=== PATIENT | female | born 1960 | race Caucasian/White ===

== ENCOUNTER 2021-11-08 19:11 | Emergency (ER) | payer OTHER, SELFPAY ==
--- NOTE | 2021-11-08 19:11 | USR_ITS ---
PROCEDURE INFORMATION: Exam: US Duplex Left Lower Extremity Veins, Limited Exam date and time: 11/08/2021 7:48 PM Age: 61 years old Clinical indication: Pain; Leg, lower; Left TECHNIQUE: Imaging protocol: Real-time Duplex ultrasound of the Left Lower Extremity with 2-D kendall scale, color Doppler flow and spectral waveform analysis with image documentation. Limited exam focused on the left lower extremity veins. COMPARISON: CT abdomen pelvis w con* [id number] 05/09/2019 1:38 PM FINDINGS: Left deep veins: Unremarkable. The common femoral, femoral, proximal profunda femoral and popliteal veins are patent without thrombus. Normal Doppler waveforms. Normal compressibility and/or augmentation response. Left superficial veins: Unremarkable. Saphenofemoral junction is patent without thrombus. Soft tissues: Unremarkable. US/CV venous duplex [facility] [id number] IMPRESSION: No evidence of deep vein thrombosis.
[2021-11-08 20:14] VITALS: BP 175/61; PULSE 50; RESP 18; TEMP 36.7; O2SAT 95; BMI 53.1
--- NOTE | 2021-11-08 20:27 | XRR_ITS ---
PROCEDURE INFORMATION: Exam: XR Left Knee Exam date and time: 11/08/2021 8:39 PM Age: 61 years old Clinical indication: Pain; Knee; Left TECHNIQUE: Imaging protocol: XR Left knee. Views: 3 views. COMPARISON: [place] [id number] 11/08/2021 7:48 PM FINDINGS: Bones/joints: Severe tricompartmental osteoarthritis of the knee. Soft tissues: Normal. XR/XR knee LT 3V* [id number] IMPRESSION: Severe tricompartmental osteoarthritis of the knee.
--- NOTE | 2021-11-08 20:32 | W.ED.EXTPRO ---
HPI - Extremity Problem General: Chief complaint: Extremity Problem,Nontraumatic Stated complaint: possible blood clot LT leg Time Seen by Provider: 11/08/21 19:12 Source: patient Mode of arrival: ambulatory Limitations: no limitations History of Present Illness: 61-year-old female states that she been having some lower leg pain today and knee pain. She does get arthritis in her knees she states she had called her PCP and her PCP was concerned about a blood clot and wondered to have an ultrasound appear sick to since she has been her pain is actually improved and she is currently pain-free states mainly when she walks. Associated symptoms: Deny chest pain, fever(s) or rash Review of Systems Const: Denies: fever(s), chills, body aches or change in appetite Eyes: Denies: blurry vision or eye discomfort ENMT: Denies: throat pain or dental pain Card: Denies: chest pain Resp: Denies: dyspnea GI: Denies: abdominal pain, nausea, vomiting or diarrhea : Denies: dysuria Musc: Reports: extremity pain; Denies: neck pain or back pain Skin/Breast: Denies: rash Neuro: Denies: headache(s) Psych: Denies: depression Abelardo/Lymph: Denies: easy bruising All/Imm: Denies: urticaria PFSH ED PFSH: Family History (Updated 01/15/20 @ 11:58 by Constanza Valle RN) Mother Cancer Other CAD (coronary artery disease) Social History (Updated 01/15/20 @ 11:59 by Constanza Valle RN) Smoking and tobacco status: never smoked Household members: spouse Marital status: Physical Exam Const: COMMON NORMALS: no acute distress, patient oriented x3 and healthy appearing HENMT: COMMON NORMALS: normocephalic and atraumatic HEAD & SCALP: normocephalic and atraumatic Eye: COMMON NORMALS: Equal, round and reactive pupils present and EOMs intact bilaterally PUPIL: Yes Equal, round and reactive pupils present Neck/C-Spine: COMMON NORMALS: full ROM and supple Chest: COMMONS NORMALS: normal inspection of the chest and normal palpation of entire chest wall Resp: COMMON NORMALS: normal respiratory effort, No retractions, No use of accessory muscles and clear to auscultation bilaterally AUSCULTATION: clear to auscultation bilaterally Cardio: COMMON NORMALS: regular rate, regular rhythm and No murmurs present (Cardio) RATE: regular rate RHYTHM: regular rhythm GI: COMMON NORMALS: Normal to inspection, nondistended, normoactive bowel sounds present, Soft to palpation, non-tender and no masses PALPATION: Yes Soft to palpation Extremity: NARRATIVE EXTREMITY EXAM: No calf tenderness at this time no swelling or warmth to the knee full range of motion without pain Neuro: COMMON NORMALS: patient oriented x3, moves all extremities and no focal motor deficits Psych: COMMON NORMALS: mental status grossly normal, Normal thought process present and cooperative THOUGHT PROCESS: Normal thought process present Skin: COMMON NORMALS: no rashes or lesions noted and no wounds GENERAL SKIN EXAM: no rashes or lesions noted Course Vital Signs: Vital signs: Vital Signs Temperature 98.0 F 11/08/21 20:14 Pulse Rate 50 L 11/08/21 20:14 Respiratory Rate 18 11/08/21 20:14 Blood Pressure 175/61 11/08/21 20:14 Pulse Oximetry 95 11/08/21 20:14 MDM - Extremity (Nontraumatic) Medical Decision Making Patient presents here with knee pain likely from arthritis x-ray normal ultrasound shows no DVT her pain is much improved she is stable for discharge follow-up with PCP and return if worsening Lab Data Radiology Impressions Venous Duplex 11/08/21 19:11 IMPRESSION: No evidence of deep vein thrombosis. Discharge Plan Discharge Patient Disposition: Home Clinical Impression: Knee pain, left Condition: Stable Prescriptions: New Naprosyn 500 mg tablet 500 mg PO BID PRN (Reason: pain) Qty: 20 0RF No Action levothyroxine [Synthroid] 175 mcg tablet 175 mcg PO DAILY 0RF amlodipine 10 mg tablet 5 mg PO DAILY 0RF tramadol 50 mg tablet 50 mg PO Q6H PRN0RF cyclobenzaprine 10 mg tablet 10 mg PO TID PRN0RF famotidine 20 mg tablet 20 mg PO BID 0RF Discharge Orders: Discharge ED (Routine); Ordered 11/08/21 Ordered By: Addison Arugeta Referrals: Maria Elena Winslow APN [Primary Care Provider] - 1-3 days Discharge Diet: Advance as tolerated Discharge Activity: Resume usual activity Patient Instructions: Knee Pain (ED) Coding Level of Care Code ED Tavern Keeper for Chg Fwd Exam Comprehensive
[2021-11-08 20:52] VITALS: BP 113/85; PULSE 119; RESP 14; O2SAT 95
== END 2021-11-08 20:56 | disposition home or self-care (01) ==
PROVIDERS: Emergency Provider Emergency Medicine; PCP Nurse Practitioner Family
DX: M25.562 Pain in left knee (principal)
CPT/HCPCS: 73562; 93971; 99282

== ENCOUNTER 2022-02-05 09:55 | Emergency (ER) | payer OTHER, SELFPAY ==
[2022-02-05 10:40] VITALS: PULSE 96; RESP 20; TEMP 36.6; O2SAT 93; BMI 53.1
--- NOTE | 2022-02-05 12:10 | CT_ITS ---
WS: [id number] CT ABDOMEN PELVIS TECHNIQUE: Noncontrast CT of the abdomen and pelvis with coronal and sagittal reformatted images. CLINICAL INFORMATION: abd pain LLQ COMPARISON: CT 10 DLP: 1714.[address] scans at [facility] use at least one of these dose optimization techniques: automated e xposure control; mA and/or kV adjustment per patient size (includes targeted exams where dose is matc hed to clinical indication); or iterative reconstruction. FINDINGS: 4 mm proximal obstructing LEFT proximal ureteral calculus with mild LEFT ureterectasis and pelvocalie ctasis. Minimal induration about the LEFT kidney. RIGHT ureter is decompressed. Bilateral nonobstruct ing calyceal tip calculi bilaterally. Normal noncontrast liver. Hepatomegaly. Cholecystectomy clips. Small postoperative fluid attenuation collection in the gallbladder fossa. Postoperative changes at the GE junction with gastric sleeve and moderate hiatal hernia unchanged. Noncontrast spleen is normal. Fatty atrophy of the pancreas. Sigmoid diverticulosis. No evidence of acute diverticulitis. No evidence of high-grade small or large bowel obstruction. Tiny fat-containing umbilical hernia. Moderate spondylitic changes lumbar spine. Disc space narrowing L5-S1. CT/CT abdomen pelvis wo con [id number] IMPRESSION: 1. Obstructing 4 mm LEFT proximal ureteral calculus. Mild LEFT pelvocaliectasi s and ureterectasis. Slight induration about the LEFT kidney. 2. Prior gastric sleeve with moderate esophageal hiatal hernia similar to prev ious. 3. Interval cholecystectomy with small postoperative fluid collection in the g allbladder fossa likely postoperative seroma or less likely biloma measuring 1. 8 cm. This can be followed up with ultrasound gallbladder on an elective basis. 4. No other significant changes. Notified Colleen Wagoner MD at 02/05/2022 1:20 PM.
--- NOTE | 2022-02-05 12:12 | W.ED.GENADLT ---
HPI - General Adult General: Chief complaint: Abdominal Pain Stated complaint: Pain in left side Time Seen by Provider: 02/05/22 11:49 History of Present Illness: Patient is a 61-year-old female with a history of hypertension, hypothyroidism, previous gastric sleeve surgery who presents the emergency room with complaints of left lower quadrant Jimbo pain x3 days. Patient pain started on Saturday morning when patient was outside. Patient denies any trauma or injury. Since then, patient has had intermittent colicky pain that is only improved with pain medication. Patient has hydrocodone lying around at home and reportedly took some to relieve the pain. Patient has multiple episodes of emesis in the last 3 days. Patient reports loose stool but also says that she is on stool softener. Patient denies any urinary complaints, hematuria, melena or hematochezia. Patient denies any decreased p.o. intake, fever/chills with mild cough, runny nose sore throat. Patient denies any prior history of kidney stones or prior abdominal surgeries other than gastric sleeve procedure. Onset:3 days ago Duration:3 days Location:home Severity:moderate Associated symptoms: Reports nausea and vomiting; Deny chest pain, dyspnea, rash or palpitations Review of Systems Const: Denies: fever(s) or chills Eyes: Denies: change in vision ENMT: Denies: mouth pain Card: Denies: chest pain or palpitations Resp: Denies: dyspnea or non-productive cough GI: Reports: abdominal pain (+LLQ abd pain), nausea, vomiting and diarrhea (+loose stools) : Denies: dysuria Musc: Denies: extremity pain Skin/Breast: Denies: rash or new lesions Neuro: Denies: weakness in extremities Psych: Reports: other (Normal mood) Abelardo/Lymph: Denies: easy bruising PFSH ED PFSH: Medical History (Updated 02/05/22 @ 13:21 by Colleen Wagoner MD) History of cardioversion Hypertension Hypothyroidism Obesity Surgical History (Updated 02/05/22 @ 12:15 by Colleen Wagoner MD) S/P cholecystectomy S/P gastric bypass S/P hysterectomy Family History Mother Cancer Other CAD (coronary artery disease) Social History Smoking and tobacco status: never smoked Household members: spouse Marital status: Physical Exam Const: COMMON NORMALS: alert HENMT: COMMON NORMALS: atraumatic HEAD & SCALP: atraumatic MOUTH: moist mucous membranes not abnormal Eye: COMMON NORMALS: EOMs intact bilaterally and conjunctivae normal CONJUNCTIVA: Yes conjunctivae normal Neck/C-Spine: COMMON NORMALS: full ROM and supple Resp: COMMON NORMALS: normal respiratory effort and clear to auscultation bilaterally AUSCULTATION: clear to auscultation bilaterally Cardio: COMMON NORMALS: regular rate RATE: regular rate GI: COMMON NORMALS: Soft to palpation PALPATION: Yes Soft to palpation OTHER: +moderate LLQ TTP. NO guarding rebound, guarding, rigidity. No CVA tenderness to percussion. Neg Ulloa/Neg McBurney's point tenderness, no suprabupic tenderness to palpation. Extremity: COMMON NORMALS: full ROM Neuro: SENSORIUM/ORIENTATION: Yes alert MOTOR EXAM: No Abnormal motor strength present and Other motor observations present (no focal motor deficits) Psych: COMMON NORMALS: speech normal SPEECH: Yes normal speech MOOD & AFFECT: Yes euthymic mood Course Vital Signs: Vital signs: Vital Signs Temperature 97.9 F 02/05/22 10:40 Pulse Rate 96 02/05/22 10:40 Respiratory Rate 20 H 02/05/22 10:40 Pulse Oximetry 93 02/05/22 10:40 [facility] - General Adult Medical Decision Making 61-year-old female with history of hypertension, hypothyroidism, previous gastric sleeve procedure presenting to the emergency room with complaints of left lower quadrant Jimbo pain for the last 3 days with associated nausea and vomiting. On exam, patient is hemodynamically stable without any guarding or rebound tenderness. Patient has moderate LLQ tenderness palpation. CT abd pelvis showed 4 mm left obstructive stone. Patient has a normal creatinine value. Patient received 2 L of fluid, Toradol, morphine with improvement in pain. UA showed 1+ bacteria. Given the fact the patient is afebrile without a leukocytosis, no signs of fat stranding on CT scan, do not suspect patient has acute infected stone. However will cover patient apparently with antibiotics. Patient received Keflex 500 mg today in the ER. Patient is able to tolerate p.o. and is in no acute distress on reassessment. Rx cephalexin BID for UTI, tylenol PRN pain Disposition: Discharge. Patient counseled regarding diagnostic impression, treatment plan. Patient given ED strict return precautions to return for continuation, worsening, or development of new symptoms. Instructed to f/u w/ PCP regarding symptoms today. Patient verbalized understanding. Lab Data : 02/05/22 12:07 02/05/22 13:14 Radiology Impressions Abdomen/Pelvis CT 02/05/22 12:10 IMPRESSION: 1. Obstructing 4 mm LEFT proximal ureteral calculus. Mild LEFT pelvocaliectasis and ureterectasis. Slight induration about the LEFT kidney. 2. Prior gastric sleeve with moderate esophageal hiatal hernia similar to previous. 3. Interval cholecystectomy with small postoperative fluid collection in the gallbladder fossa likely postoperative seroma or less likely biloma measuring 1.8 cm. This can be followed up with ultrasound gallbladder on an elective basis. 4. No other significant changes. Notified Colleen Wagoner MD at 02/05/2022 1:20 PM. Laboratory Results WBC 9.0 10^3/uL (4.0-10.0) 02/05/22 12:07 RBC 5.60 10^6/uL (4.1-5.3) H 02/05/22 12:07 Hgb 14.4 g/dL (11.5-15.3) 02/05/22 12:07 Hct 47.2 % (37.0-47.0) H 02/05/22 12:07 MCV 84.3 fl (81-99) 02/05/22 12:07 MCH 25.7 pg (28.0-34.0) L 02/05/22 12:07 MCHC 30.5 g/dL (30.0-36.0) 02/05/22 12:07 RDW 14.3 % (12.1-15.1) 02/05/22 12:07 Plt Count 227 10^3/cmm (130-400) 02/05/22 12:07 MPV 11.4 fL (7.4-10.4) H 02/05/22 12:07 Neut % (Auto) 80.8 % 02/05/22 12:07 Lymph % (Auto) 12.7 % 02/05/22 12:07 Alfalfa % (Auto) 5.6 % 02/05/22 12:07 Eos % (Auto) 0.2 % 02/05/22 12:07 Baso % (Auto) 0.4 % 02/05/22 12:07 Neut # (Auto) 7.24 10^3/uL (1.8-7.7) 02/05/22 12:07 Lymph # (Auto) 1.1 10^3/uL (0.8-4.8) 02/05/22 12:07 Alfalfa # (Auto) 0.5 10^3/uL (0.2-0.9) 02/05/22 12:07 Eos # (Auto) 0.0 10^3/uL (0.0-0.8) 02/05/22 12:07 Baso # (Auto) 0.0 10^3/uL (0.0-0.1) 02/05/22 12:07 Nucleated RBC % (auto) 0 % 02/05/22 12:07 Nucleated RBCs # 0.0 /100WBC 02/05/22 12:07 Sodium Cancelled 02/05/22 12:07 Potassium Cancelled 02/05/22 12:07 Chloride Cancelled 02/05/22 12:07 Carbon Dioxide Cancelled 02/05/22 12:07 Anion Gap Cancelled 02/05/22 12:07 BUN Cancelled 02/05/22 12:07 Creatinine Cancelled 02/05/22 12:07 GFR Calculation Cancelled 02/05/22 12:07 Glucose Cancelled 02/05/22 12:07 Calculated Osmolality Cancelled 02/05/22 12:07 Calcium Cancelled 02/05/22 12:07 Total Bilirubin Cancelled 02/05/22 12:07 AST Cancelled 02/05/22 12:07 ALT Cancelled 02/05/22 12:07 Alkaline Phosphatase Cancelled 02/05/22 12:07 Total Protein Cancelled 02/05/22 12:07 Albumin Cancelled 02/05/22 12:07 Globulin Cancelled 02/05/22 12:07 Lipase Cancelled 02/05/22 12:07 Urine Color Yellow (Yellow) 02/05/22 11:52 Urine Appearance Clear (CLEAR) 02/05/22 11:52 Urine pH 5 (5-7) 02/05/22 11:52 Ur Specific Dalton 1.030 (1.005-1.030) 02/05/22 11:52 Urine Protein Neg (Negative) 02/05/22 11:52 Urine Glucose (UA) Norm (Normal) 02/05/22 11:52 Urine Ketones Negative (Negative) 02/05/22 11:52 Urine Blood Neg (Negative) 02/05/22 11:52 Urine Nitrate Negative (Negative) 02/05/22 11:52 Urine Bilirubin Neg (Negative) 02/05/22 11:52 Urine Urobilinogen Norm mg/dL (Negative) 02/05/22 11:52 Ur Leukocyte Esterase Trace (Negative) H 02/05/22 11:52 Urine RBC 0-4 /hpf (0-2) H 02/05/22 11:52 Urine WBC 5-10 /hpf (0-5) H 02/05/22 11:52 Ur Squamous Epith Cells 0-4 /hpf (0-5) H 02/05/22 11:52 Calcium Oxalate Crystal 40-55 /hpf H 02/05/22 11:52 Amorphous Sediment Not Reportable 02/05/22 11:52 Urine Bacteria 1+ /hpf (NONE) H 02/05/22 11:52 Imaging Data Other Imaging: Radiologist's impression: [place] [address] CT Scan Report Signed Patient: Lauren Boyd Unit #: [id number] : 1960 Age/Sex: 61 / F ADM Date: 02/05/22 Loc: ER Room/Bed: Attending Dr: Ordering Provider/Ordering MD: Colleen Wagoner MD Date of Service: 02/05/22 Procedure(s): CT abdomen pelvis [facility] [address] Accession Number(s): [id number] Report Number: [id number] WS: [id number] CT ABDOMEN PELVIS TECHNIQUE: Noncontrast CT of the abdomen and pelvis with coronal and sagittal reformatted images. CLINICAL INFORMATION: abd pain LLQ COMPARISON: CT DLP: 1714.[address] scans at [facility] use at least one of these dose optimization techniques: automated exposure control; mA and/or kV adjustment per patient size (includes targeted exams where dose is matched to clinical indication); or iterative reconstruction. FINDINGS: 4 mm proximal obstructing LEFT proximal ureteral calculus with mild LEFT ureterectasis and pelvocaliectasis. Minimal induration about the LEFT kidney. RIGHT ureter is decompressed. Bilateral nonobstructing calyceal tip calculi bilaterally. Normal noncontrast liver. Hepatomegaly. Cholecystectomy clips. Small postoperative fluid attenuation collection in the gallbladder fossa. Postoperative changes at the GE junction with gastric sleeve and moderate hiatal hernia unchanged. Noncontrast spleen is normal. Fatty atrophy of the pancreas. Sigmoid diverticulosis. No evidence of acute diverticulitis. No evidence of high-grade small or large bowel obstruction. Tiny fat-containing umbilical hernia. Moderate spondylitic changes lumbar spine. Disc space narrowing L5-S1. CT/CT abdomen pelvis wo con [id number] IMPRESSION: ? 1.? Obstructing 4 mm LEFT proximal ureteral calculus. Mild LEFT pelvocaliectasis and ureterectasis. Slight induration about the LEFT kidney. 2.? Prior gastric sleeve with moderate esophageal hiatal hernia similar to previous. 3.? Interval cholecystectomy with small postoperative fluid collection in the gallbladder fossa likely postoperative seroma or less likely biloma measuring 1.8 cm. This can be followed up with ultrasound gallbladder on an elective basis. 4.? No other significant changes. ? Notified Colleen Wagoner MD at 02/05/2022 1:20 PM. ? ? Dictated By: Ruperto Blakely MD Signed By: Ruperto Blakely MD Signed Date/Time: 02/05/22 1323 DD/ 1301 Discharge Plan Discharge Patient Disposition: Home Clinical Impression: Abdominal pain, Nausea & vomiting, Renal colic Condition: Stable Prescriptions: New acetaminophen 500 mg tablet 500 mg PO Q6H PRN (Reason: pain) 5 Days Qty: 20 0RF cephalexin 500 mg capsule 500 mg PO BID 7 Days Qty: 14 0RF No Action Aspir-81 81 mg Tablet,Delayed Release (Dr/Ec) 81 mg PO DAILY 0RF Discharge Orders: Discharge ED (Routine); Ordered 02/05/22 Ordered By: Colleen Wagoner Referrals: Maria Elena Winslow APN [Primary Care Provider] - Discharge Diet: Advance as tolerated Discharge Activity: Increase activity as tolerated Patient Instructions: Renal Colic (ED), Abdominal Pain (ED) Activity Restrictions/Additional Instructions: Please come back if you have any worsening abdominal pain, fever or chills, nausea or vomiting, diarrhea, blood in the stool, inability hold down liquid or solids, or any new concerning complaints. Coding Level of Care Code ED Wool Sampler for Chg Fwd Exam Comprehensive
[2022-02-05 12:20] LABS: Basophils % 0.4 %; Eosinophils % 0.2 %; Hematocrit 47.2 % (37.0-47.0); Hemoglobin 14.4 g/dL (11.5-15.3); Lymphocytes # 1.1 10^3/uL (0.8-4.8); Lymphocytes % 12.7 %; Mean Corpuscular HGB Conc 30.5 g/dL (30.0-36.0); Mean Corpuscular Hemoglobin 25.7 pg (28.0-34.0); Mean Corpuscular Volume 84.3 fl (81-99); Mean Platelet Volume 11.4 fL (7.4-10.4); Monocytes # 0.5 10^3/uL (0.2-0.9); Monocytes % 5.6 %; Neutrophils # 7.24 10^3/uL (1.8-7.7); Neutrophils % 80.8 %; Nucleated Red Blood Cells % 0 %; Platelet Count 227 10^3/cmm (130-400); Red Cell Distribution Width 14.3 % (12.1-15.1)
[2022-02-05 12:24] LABS: Add Urine Microscopic? YES; Bacteria Urine 1+ /hpf; Bilirubin Urine Neg (Negative); Blood Urine Neg (Negative); Calcium Oxalate Crystals Urine 40-55 /hpf; Glucose Urine UA Norm (Normal); Ketones Urine Negative (Negative); Leukocyte Esterase Urine Trace (Negative); Nitrate Urine Negative (Negative); Protein Urine Neg (Negative); RBC Urine 0-4 /hpf (0-2); Squamous Epithelial Cell Urine 0-4 /hpf (0-5); Urine Appearance Clear (CLEAR); Urine Color Yellow (Yellow); Urobilinogen Urine Norm (Negative); pH Urine 5 (5-7)
[2022-02-05 12:25] LABS: Add Urine Culture? Yes
[2022-02-05] MEDS: morphine 4 mg/mL SDV 1 mL 2 MG IVP (13:14)
[2022-02-05] MEDS: sodium chloride 0.9% 1,000 ML 999 ML IV ×2 (13:15→14:00)
[2022-02-05] MEDS: cephALEXin 500 mg Capsule PO (13:46)
[2022-02-05] MEDS: ketorolac 30 mg/mL INJ IVP (13:46)
[2022-02-05 13:47] LABS: Alanine Aminotransferase 13 U/L (0-33); Albumin Level 4.4 g/dL (3.5-5.2); Alkaline Phosphatase 94 IU/L (35-105); Anion Gap 15.2 (5-19); Aspartate Amino Transferase 17 U/L (0-32); Blood Urea Nitrogen 20 mg/dL (8-23); Calcium 9.7 mg/dL (8.5-10.5); Carbon Dioxide 25 mmol/L (22-29); Chloride 104 mmol/L (98-107); Glomerular Filtration Rate 41.5 mL/min (90-130); Glucose 111 mg/dL (65-115); Lipase 21 U/L (13-60); Osmolality Calculated 293 mOsm/kg (285-295); Potassium 4.2 mmol/L (3.5-5.1); Sodium 140 mmol/L (136-145); Total Bilirubin 0.3 mg/dL (0.15-1.2); Total Protein 7.4 g/dL (6.6-8.7)
[2022-02-05 14:16] VITALS: BP 167/96; PULSE 81; O2SAT 96
== END 2022-02-05 14:17 | disposition home or self-care (01) ==
PROVIDERS: Family Medicine; Emergency Provider Emergency Medicine; PCP Nurse Practitioner Family
DX: N23 Unspecified renal colic (principal); R10.9 Unspecified abdominal pain; R11.2 Nausea with vomiting, unspecified; Z79.82 Long term (current) use of aspirin
CPT/HCPCS: 36415; 74176; 80053; 81001; 83690; 85025; 87086; 96374; 96375; 99285; J1885; J2270; J7030

== ENCOUNTER 2023-03-08 10:54 | Outpatient (CLI) | payer OTHER, SELFPAY ==
--- NOTE | 2023-03-08 11:21 | XR_ITS ---
WS: [id number] Right knee, AP and lateral views, 03/08/2023 Clinical Data: BILATERAL KNEE PAIN Comparison: None. Findings: No fractures or dislocations are seen. There is narrowing of the medial joint space with sclerosis of the adjacent tibial plateau articular surface. There is spurring of the tibial spines. There is a sp ur of the lateral femoral condyle. The patella shows anterior and posterior spurring.. The patella is intact. The soft tissues are unremarkable. Impression: Moderate osteoarthritis of the right knee. Kellgren-Antwan Classification: grade 3 (moderate): moderate multiple osteophytes, definite narrowi ng of joint space and some sclerosis and possible deformity of bone ends
--- NOTE | 2023-03-08 11:21 | XR_ITS ---
WS: [id number] Left hip, 2 views, AP pelvis, 03/08/2023 Clinical Data: LEFT HIP PAIN Comparison: None. Findings: No fractures or dislocations are seen. The left hip shows no erosion, sclerosis, narrowing, cyst form ation or fragmentation of the left femoral head. The soft tissues are not remarkable. The adjacent pe lvis is normal. The right hip shows a small acetabular spur. 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 Tonnis classification: grade 1: sclerosis of femoral head and acetabulum or slight joint space narrow ing or slight lipping at joint margins
--- NOTE | 2023-03-08 11:21 | XR_ITS ---
WS: [id number] Right foot, 2 views, 03/08/2023 Clinical Data: BILATERAL FEET PAIN Comparison: None. Findings: No fractures or dislocations are seen. No bone destruction or erosion is noted. There is a bunion of the head of the right first metatarsal. There is a plantar spur. The soft tissues are normal. There i s an orthopedic plate with screws reducing an old distal right fibular fracture. Impression: Bunion at the head of the right first metatarsal.
--- NOTE | 2023-03-08 11:21 | XR_ITS ---
WS: [id number] Left knee, AP and lateral views, 03/08/2023 Clinical Data: BILATERAL KNEE PAIN Comparison: Left knee, 11/08/2021 Findings: No fractures or dislocations are seen. There is medial joint compartment narrowing. There is spurring of the medial and lateral tibial plateau. There is irregularity of the articular surfaces of the med ial and lateral femoral condyles. The left patella shows posterior and anterior spurring. The soft ti ssues are normal. Impression: Severe osteoarthritis of the left knee. Kellgren-Antwan Classification: grade 4 (severe): large osteophytes, marked narrowing of joint spac e, severe sclerosis and definite deformity of bone ends
--- NOTE | 2023-03-08 11:21 | XR_ITS ---
WS: [email or web address] Left foot, 2 views, 03/08/2023 Clinical Data: BILATERAL FEET PAIN Comparison: None. Findings: No fractures or dislocations are seen. No bone destruction or erosion is noted. There is a bunion at the head of the left first metatarsal. There is a plantar spur and an Achilles spur. The soft tissues are normal. Impression: Bunion at the head of the left first metatarsal.
== END 2023-03-08 10:55 | disposition home or self-care (01) ==
PROVIDERS: PCP Nurse Practitioner Family; Visit Provider Nurse Practitioner Family
DX: M79.671 Pain in right foot (principal); M79.672 Pain in left foot; M17.0 Bilateral primary osteoarthritis of knee; M16.12 Unilateral primary osteoarthritis, left hip; M25.752 Osteophyte, left hip; M21.612 Bunion of left foot; M21.611 Bunion of right foot
CPT/HCPCS: 73502; 73560; 73620

== ENCOUNTER 2023-04-26 09:23 | Outpatient (RCR) | payer OTHER, SELFPAY | END 2023-05-21 23:59 | disposition home or self-care (01) | LOC: SPT 09:23 | PROVIDERS: PCP Nurse Practitioner Family; Visit Provider Student in an Organized Health Care Education/Training Program | DX: M70.62 Trochanteric bursitis, left hip (principal) | CPT/HCPCS: 97110; 97161 ==

== ENCOUNTER → 2023-04-30 09:08 | Outpatient (BNVA) | payer OTHER, SELFPAY | PROVIDERS: PCP Nurse Practitioner Family; Referring Provider Student in an Organized Health Care Education/Training Program; Visit Provider Physician Assistant | DX: M51.36 Other intervertebral disc degeneration, lumbar region (principal) | CPT/HCPCS: 72110 ==

== ENCOUNTER → 2023-05-02 10:22 | Outpatient (BNVA) | payer OTHER, SELFPAY | PROVIDERS: PCP Nurse Practitioner Family; Visit Provider Physician Assistant | DX: M17.0 Bilateral primary osteoarthritis of knee | CPT/HCPCS: 73560; 73565 ==

== ENCOUNTER 2023-06-04 11:44 | Emergency (ER) | payer OTHER, SELFPAY ==
[2023-06-04] VITALS (40 sets, daily range): BP systolic 138–170; BP diastolic 94–127; PULSE 96–113; RESP 14–47; TEMP 36.8; O2SAT 89–99; BMI 56.7
[2023-06-04 13:27] LABS: Basophils % 0.1 %; Eosinophils % 0.2 %; Hematocrit 50.9 % (36-47); Lymphocytes # 1.7 10^3/uL (0.8-4.8); Lymphocytes % 18.2 %; Mean Corpuscular HGB Conc 30.8 g/dL (30-55); Mean Corpuscular Hemoglobin 25.6 pg (27-33); Mean Corpuscular Volume 82.9 fl (85-98); Mean Platelet Volume 10.6 fL (7.4-10.4); Monocytes # 0.5 10^3/uL (0.2-0.9); Monocytes % 5.9 %; Neutrophils # 6.83 10^3/uL (1.8-7.7); Neutrophils % 74.7 %; Nucleated Red Blood Cells # 0.1 /100WBC; Nucleated Red Blood Cells % 0.9 %; Platelet Count 141 10^3/cmm (157-399); Red Blood Count 6.14 10^6/uL (3.85-5.65); Red Cell Distribution Width 18.2 % (12.1-15.1); White Blood Count 9.14 10^3/uL (3.29-11.43)
--- NOTE | 2023-06-04 13:39 | XR_ITS ---
WS: [id number] Exam: XR chest 1V portable [id number] Date/Time of Exam: 06/04/2023 1:40 PM Reason For Exam: SOB post COVID Comparison 06/09/2019. Lungs are clear and fully expanded. Unremarkable cardiomediastinal silhouette for technique. Bony str uctures are intact. No pleural effusions. Degenerative change and mild levoscoliosis of the lower T-s pine. IMPRESSION: 1. No acute cardiopulmonary process.
--- NOTE | 2023-06-04 13:39 | ECG_ITS ---
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 Measurements Intervals [place] Rate: 111 P: 51 PA: 255 QRS: -76 QRSD: 114 T: 134 QT: 385 QTc: 525 Interpretive Statements SINUS TACHYCARDIA WITH FIRST DEGREE AV BLOCK POSSIBLE RIGHT ATRIAL ENLARGEMENT [0.25mV P-WAVE] S1-S2-S3 PATTERN, CONSISTENT WITH PULMONARY DISEASE, RVH, OR NORMAL VARIANT INCOMPLETE RIGHT BUNDLE BRANCH BLOCK [90+ ms QRS DURATION, TERMINAL R IN V1/V2, 40+ ms S IN I/aVL/V4/V5/V6] LEFT ANTERIOR FASCICULAR BLOCK [QRS AXIS <= -45, QR IN I, RS IN II] ANTERIOR MYOCARDIAL INFARCTION , PROBABLY RECENT [40+ ms Q WAVE AND/OR ST/T ABNORMALITY IN V3/V4] ST ELEVATION, CONSIDER INFERIOR INJURY [MARKED ST ELEVATION W/O NORMALLY INFLECTED T-WAVE IN II/aVF] ACUTE IL Compared to ECG 06/10/2019 06:13:58First degree AV block now present Right ventricular hypertrophy now present.Incomplete right bundle-branch block now present.Left anterior fascicular block now present Electronically Signed On 06-04-2023 23:19:24 MILLER HEAD ASSISTANT WET PROCESS by Marshall Perez M.D. [email or web address]
--- NOTE | 2023-06-04 13:40 | ED_ITS ---
Documented by User: SERENITY Mcgovern 06/04/23 16:51 HPI - SOB/Dyspnea General: Chief Complaint: Shortness of Breath/Dyspnea Stated Complaint: BC sent for poss. heart issues Time Seen by Provider: 06/04/23 13:28 Source: patient and family Mode of arrival: ambulatory Limitations: no limitations History of Present Illness: HPI Narrative: Patient is a nice 62-year-old female who presents to ED today along with her significant other for evaluation of dyspnea. Patient states over the past several days she has been having significant shortness of breath even with very minimal exertion which is very uncharacteristic for her. She states she was see n at [facility] prior to the emergency department and they did a portable x- ray and told her there was widening of her aorta and they were concerned for a possible aneurysm and/or dissection. Patient is not having any chest pain. She tells me around Halloween she was exposed to another individual with COVID. She later developed a headache and a mild cough and so did a home rapid antigen test which was positive. She states her symptoms during COVID seemed to be fairly mild and she seemed to recover well until the last few days when she developed significant shortness of breath. She has no known cardiac or pulmonary history. She does take furosemide for lower extremity edema without a history of CHF. MD elicited complaint: shortness of breath Pertinent past history: other (recent COVID infection) Onset (ago): day(s) Context: recent illness (COVID) Timing: constant Severity: severe Exacerbating factors: lying flat and exertion Relieving factors: rest Associated symptoms: Reports orthopnea; Deny abdominal pain, chest congestion, chest pain, extremity pain, fever(s), hemoptysis, lightheadedness, nausea, palpitations, syncope or vomiting Treatment prior to arrival: none Related Data: Home oxygen amount: none Review of Systems Const: Denies: fever(s), chills, body aches, fatigue or malaise ENMT: Denies: throat pain, odynophagia, ear or mastoid pain, nasal discharge or nasal congestion Card: Reports: swelling of feet/ankles, dyspnea on exertion and orthopnea; Denies: chest pain, palpitations, irregular heart rhythm, edema, lightheadedness, syncope, pre-syncope, leg pain with exertion or acrocyanosis Resp: Reports: dyspnea; Denies: productive cough, non-productive cough, wheezing, hemoptysis or chest congestion GI: Denies: abdominal pain, nausea, vomiting or diarrhea : Denies: flank pain or dysuria Musc: Denies: neck pain, back pain, extremity pain or joint pain Skin/Breast: Denies: rash Neuro: Denies: headache(s), numbness in extremities, weakness in extremities or sensory changes PFSH ED PFSH: Medical History History of cardioversion Hypertension Hypothyroidism Obesity Surgical History S/P cholecystectomy S/P gastric bypass S/P hysterectomy Family History Mother Cancer Other CAD (coronary artery disease) Social History Smoking and tobacco/nicotine status: never used tobacco/nicotine Alcohol intake: never Household members: spouse Marital status: Physical Exam Const: COMMON NORMALS: patient oriented x3, no limitations, alert and well nourished GENERAL APPEARANCE: cooperative NUTRITIONAL APPEARANCE: obese morbidly obese (BMI of 56) ORIENTATION/CONSCIOUSNESS: Yes awake, Yes oriented to person, Yes oriented to place and Yes oriented to time HENMT: COMMON NORMALS: normocephalic and atraumatic HEAD & SCALP: normal to inspection, normocephalic and atraumatic Neck/C-Spine: COMMON NORMALS: no JVD Chest: COMMONS NORMALS: normal inspection of the chest Resp: COMMON NORMALS: normal respiratory effort and clear to auscultation bilaterally EFFORT & INSPECTION: Yes tachypneic AUSCULTATION: clear to auscultation bilaterally Cardio: COMMON NORMALS: no JVD and regular rhythm RATE: tachycardic RHYTHM: regular rhythm Back/Pelvis: COMMON NORMALS: thoracic and lumbar spine normal to inspection Extremity: COMMON NORMALS: normal to inspection, capillary refill normal and no calf tenderness GENERAL: Yes normal exam except as noted Neuro: NELLA COMA SCALE: document GCS findings Nella coma scale eye opening: Spontaneous [place] coma scale verbal response: Orientated Nella coma scale motor response: Obey commands [place] coma scale total score: 15 COMMON NORMALS: patient oriented x3, moves all extremities, no focal motor deficits and no sensory deficits noted SENSORIUM/ORIENTATION: Yes alert, Yes oriented to person, Yes oriented to place and Yes oriented to time Skin: COMMON NORMALS: no rashes or lesions noted GENERAL SKIN EXAM: no rashes or lesions noted Course ED course: CXR from [facility] obtained-significant rotation noted. No obvious findings that I would be concerned for an anuerysm/dissection. Based on history/physical exam patient is going to be a PE until proven otherwise. Vital Signs: Vital signs: Vital Signs Temperature 98.3 F 06/04/23 11:58 Pulse Rate 112 H 06/04/23 16:50 Respiratory Rate 30 H 06/04/23 16:50 Blood Pressure 168/107 06/04/23 16:55 Pulse Oximetry 98 06/04/23 16:50 Oxygen Delivery Me thod Room Air 06/04/23 15:30 MDM - SOB/Dyspnea Medical Decision Making Patient is a 62-year-old female here sent from [facility] for concerns of an abnormal CXR. After speaking to patient she is approximately 2 weeks status post COVID infection with complaints of profound dyspnea with minimal exertion. On arrival she is tachycardic and tachypneic. Blood work with a D-dimer greater than 20. She has got elevations to her troponin and BNP. Acute kidney injury. CTA ordered despite kidney labs as I highly suspect PE with significant clot load. CTA is positive for extensive bilateral PEs with saddle embolus with poor flow to bilateral pulmonary arteries. Report below: IMPRESSION: 1.? Extensive bilateral pulmonary embolus including saddle embolus with poor flow to the pulmonary arteries bilaterally. Extensive segmental and subsegmental embolus. 2.? Evidence of RIGHT heart strain. Reflux into the hepatic veins. 3.? Shallow inspiration. Small amount of hazy infiltrate along the LEFT upper lobe fissure. 4.? Shallow inspiration 5.? Cardiomegaly. Mixing artifact in the RIGHT atrium. This can be further evaluated with echocardiogram to exclude thrombus 6.? Postoperative change at the GE junction with moderate esophageal hiatal hernia. She was promptly started on heparin and we will transfer out for evaluation for thrombectomy and/or catheter related tpa. Dr. Davis aware of patient and agrees with care here and need for transfer. Feng will not fly due to weight/girth. Medical Records I reviewed the patient's medical records. Lab Data 06/04/23 13:10 06/04/23 13:10 Labs/Radiology: Laboratory Results WBC 9.14 10^3/uL (3.29-11.43) 06/04/23 13:10 RBC 6.14 10^6/uL (3.85-5.65) H 06/04/23 13:10 Hgb 15.70 g/dL (11.27-16.99) 06/04/23 13:10 Hct 50.9 % (36-47) H 06/04/23 13:10 MCV 82.9 fl (85-98) L 06/04/23 13:10 MCH 25.6 pg (27-33) L 06/04/23 13:10 MCHC 30.8 g/dL (30-55) 06/04/23 13:10 RDW 18.2 % (12.1-15.1) H 06/04/23 13:10 Plt Count 141 10^3/cmm (157-399) L 06/04/23 13:10 MPV 10.6 fL (7.4-10.4) H 06/04/23 13:10 Neut % (Auto) 74.7 % 06/04/23 13:10 Lymph % (Auto) 18.2 % 06/04/23 13:10 Traverse % (Auto) 5.9 % 06/04/23 13:10 Eos % (Auto) 0.2 % 06/04/23 13:10 Baso % (Auto) 0.1 % 06/04/23 13:10 Neut # (Auto) 6.83 10^3/uL (1.8-7.7) 06/04/23 13:10 Lymph # (Auto) 1.7 10^3/uL (0.8-4.8) 06/04/23 13:10 Traverse # (Auto) 0.5 10^3/uL (0.2-0.9) 06/04/23 13:10 Eos # (Auto) 0.0 10^3/uL (0.0-0.8) 06/04/23 13:10 Baso # (Auto) 0.0 10^3/uL (0.0-0.1) 06/04/23 13:10 Nucleated RBC % (auto) 0.9 % 06/04/23 13:10 Nucleated RBCs # 0.1 /100WBC 06/04/23 13:10 D-Dimer >= 20.00 ug/mLFEU (0-0.59) H 06/04/23 13:10 Sodium 141 mmol/L (136-145) 06/04/23 13:10 Potassium 3.8 mmol/L (3.5-5.1) 06/04/23 13:10 Chloride 103 mmol/L (98-107) 06/04/23 13:10 Carbon Dioxide 24 mmol/L (22-29) 06/04/23 13:10 Anion Gap 17.8 (5-19) 06/04/23 13:10 BUN 26 mg/dL (8-23) H 06/04/23 13:10 Creatinine 1.8 mg/dL (0.5-0.9) H 06/04/23 13:10 GFR Calculation 28.4 mL/min (90-130) L 06/04/23 13:10 Glucose 120 mg/dL (65-115) H 06/04/23 13:10 Calculated Osmolality 298 mOsm/kg (285-295) H 06/04/23 13:10 Calcium 10.1 mg/dL (8.5-10.5) 06/04/23 13:10 Total Bilirubin 0.8 mg/dL (0.15-1.2) 06/04/23 13:10 AST 19 U/L (0-32) 06/04/23 13:10 ALT 54 U/L (0-33) H 06/04/23 13:10 Alkaline Phosphatase 124 U/L (35-105) H 06/04/23 13:10 Troponin T Baseline 59 ng/L (0-10) H 06/04/23 13:10 Troponin T 120 Minute 52.19 ng/L (0-10) H 06/04/23 15:10 Delta Troponin T -6.81 ABS# (0-10) L 06/04/23 15:10 NT-Pro-B Natriuret Pep 04899 pg/mL (0-125) H 06/04/23 13:10 Total Protein 6.8 g/dL (6.6-8.7) 06/04/23 13:10 Albumin 4.1 g/dL (3.5-5.2) 06/04/23 13:10 Globulin 2.7 g/dL (1.3-4.6) 06/04/23 13:10 All radiology interpretation(s) finalized by discharge Discharge Plan Discharge Patient Disposition: Transfer to ED Clinical Impression: Acute cor pulmonale due to saddle embolus of pulmonary artery, Acute kidney injury Condition: Stable Prescriptions: No Action potassium chloride [Klor-Con 10] 10 mEq tablet extended release 10 meq PO DAILY PRN (Reason: when taking lasix) tramadol 50 mg tablet 50 mg PO Q4H PRN (Reason: Pain) cyclobenzaprine 10 mg tablet 10 mg PO TID PRN (Reason: Muscle Spasm) azithromycin 250 mg tablet See Rx Instructions .ROUTE .COMPLEX Rx Instructions: TAKE 2 TABLETS BY MOUTH ON DAY 1, AND THEN TAKE 1 TABLET BY MOUTH ONCE A DAY ON DAY 2 THROUGH DAY 5 (rx filled 5d/s pt finished 06/01/23) alprazolam 0.5 mg tablet 0.25 mg PO BID PRN (Reason: Anxiety) levothyroxine 125 mcg tablet 125 mcg PO DAILY@03 metoprolol tartrate 50 mg tablet 50 mg PO BID gabapentin 300 mg capsule 300 mg PO BID Rx Instructions: not started as of 06/04/23 allopurinol 300 mg tablet 300 mg PO DAILY furosemide 20 mg tablet 20 mg PO DAILY PRN (Reason: Edema) methylprednisolone 4 mg tablets,dose pack See Rx Instructions .ROUTE .COMPLEX Rx Instructions: TAKE BY MOUTH DIRECTED ON INSIDE OF PACKAGE (rx filled 05/28/23 6d/s finished 06/02/23) albuterol sulfate 90 mcg/actuation HFA aerosol inhaler 2 puff INHALATION QID PRN (Reason: Shortness Of Breath) potassium citrate 99 mg Capsule 99 mg PO DAILY PRN (Reason: gout) Referrals: Mario Hemphill DO [Primary Care Provider] - Coding Level of Care Code ED Geographic Information System Surveyor for Chg Fwd Documented by User: Santos Davis DO 06/05/23 05:58 HPI - SOB/Dyspnea General: Chief Complaint: Shortness of Breath/Dyspnea Stated Complaint: BC sent for poss. heart issues Time Seen by Provider: 06/04/23 13:28 [facility] ED PFSH: Medical History History of cardioversion Hypertension Hypothyroidism Obesity Surgical History S/P cholecystectomy S/P gastric bypass S/P hysterectomy Family History Mother Cancer Other CAD (coronary artery disease) Social History Smoking and tobacco/nicotine status: never used tobacco/nicotine Alcohol intake: never Household members: spouse Marital status: Physical Exam Neuro: NELLA COMA SCALE: document GCS findings Nella coma scale total score: 15 Course Vital Signs: Vital signs: Vital Signs Temperature 98.3 F 06/04/23 11:58 Pulse Rate 112 H 06/04/23 16:50 Respiratory Rate 30 H 06/04/23 16:50 Blood Pressure 168/107 06/04/23 16:55 Pulse Oximetry 98 06/04/23 16:50 Oxygen Delivery Me thod Room Air 06/04/23 15:30 MDM - SOB/Dyspnea Medical Decision Making Patient is a 62-year-old female here sent from [facility] for concerns of an abnormal CXR. After speaking to patient she is approximately 2 weeks status post COVID infection with complaints of profound dyspnea with minimal exertion. On arrival she is tachycardic and tachypneic. Blood work with a D-dimer greater than 20. She has got elevations to her troponin and BNP. Acute kidney injury. CTA ordered despite kidney labs as I highly suspect PE with significant clot load. CTA is positive for extensive bilateral PEs with saddle embolus with poor flow to bilateral pulmonary arteries. Report below: IMPRESSION: 1.? Extensive bilateral pulmonary embolus including saddle embolus with poor flow to the pulmonary arteries bilaterally. Extensive segmental and subsegmental embolus. 2.? Evidence of RIGHT heart strain. Reflux into the hepatic veins. 3.? Shallow inspiration. Small amount of hazy infiltrate along the LEFT upper lobe fissure. 4.? Shallow inspiration 5.? Cardiomegaly. Mixing artifact in the RIGHT atrium. This can be further evaluated with echocardiogram to exclude thrombus 6.? Postoperative change at the GE junction with moderate esophageal hiatal hernia. She was promptly started on heparin and we will transfer out for evaluation for thrombectomy and/or catheter related tpa. Dr. Davis aware of patient and agrees with care here and need for transfer. Floriac will not fly due to weight/girth. Followed case closely with Padmini Smith. Chart reviewed and patient discussed with midlevel. Agree with assessment and plan. Medical Records I reviewed the patient's medical records. Lab Data I reviewed the patient's lab results. 06/04/23 13:10 06/04/23 13:10 Labs/Radiology: Laboratory Results WBC 9.14 10^3/uL (3.29-11.43) 06/04/23 13:10 RBC 6.14 10^6/uL (3.85-5.65) H 06/04/23 13:10 Hgb 15.70 g/dL (11.27-16.99) 06/04/23 13:10 Hct 50.9 % (36-47) H 06/04/23 13:10 MCV 82.9 fl (85-98) L 06/04/23 13:10 MCH 25.6 pg (27-33) L 06/04/23 13:10 MCHC 30.8 g/dL (30-55) 06/04/23 13:10 RDW 18.2 % (12.1-15.1) H 06/04/23 13:10 Plt Count 141 10^3/cmm (157-399) L 06/04/23 13:10 MPV 10.6 fL (7.4-10.4) H 06/04/23 13:10 Neut % (Auto) 74.7 % 06/04/23 13:10 Lymph % (Auto) 18.2 % 06/04/23 13:10 Traverse % (Auto) 5.9 % 06/04/23 13:10 Eos % (Auto) 0.2 % 06/04/23 13:10 Baso % (Auto) 0.1 % 06/04/23 13:10 Neut # (Auto) 6.83 10^3/uL (1.8-7.7) 06/04/23 13:10 Lymph # (Auto) 1.7 10^3/uL (0.8-4.8) 06/04/23 13:10 Traverse # (Auto) 0.5 10^3/uL (0.2-0.9) 06/04/23 13:10 Eos # (Auto) 0.0 10^3/uL (0.0-0.8) 06/04/23 13:10 Baso # (Auto) 0.0 10^3/uL (0.0-0.1) 06/04/23 13:10 Nucleated RBC % (auto) 0.9 % 06/04/23 13:10 Nucleated RBCs # 0.1 /100WBC 06/04/23 13:10 D-Dimer >= 20.00 ug/mLFEU (0-0.59) H 06/04/23 13:10 Sodium 141 mmol/L (136-145) 06/04/23 13:10 Potassium 3.8 mmol/L (3.5-5.1) 06/04/23 13:10 Chloride 103 mmol/L (98-107) 06/04/23 13:10 Carbon Dioxide 24 mmol/L (22-29) 06/04/23 13:10 Anion Gap 17.8 (5-19) 06/04/23 13:10 BUN 26 mg/dL (8-23) H 06/04/23 13:10 Creatinine 1.8 mg/dL (0.5-0.9) H 06/04/23 13:10 GFR Calculation 28.4 mL/min (90-130) L 06/04/23 13:10 Glucose 120 mg/dL (65-115) H 06/04/23 13:10 Calculated Osmolality 298 mOsm/kg (285-295) H 06/04/23 13:10 Calcium 10.1 mg/dL (8.5-10.5) 06/04/23 13:10 Total Bilirubin 0.8 mg/dL (0.15-1.2) 06/04/23 13:10 AST 19 U/L (0-32) 06/04/23 13:10 ALT 54 U/L (0-33) H 06/04/23 13:10 Alkaline Phosphatase 124 U/L (35-105) H 06/04/23 13:10 Troponin T Baseline 59 ng/L (0-10) H 06/04/23 13:10 Troponin T 120 Minute 52.19 ng/L (0-10) H 06/04/23 15:10 Delta Troponin T -6.81 ABS# (0-10) L 06/04/23 15:10 NT-Pro-B Natriuret Pep 37897 pg/mL (0-125) H 06/04/23 13:10 Total Protein 6.8 g/dL (6.6-8.7) 06/04/23 13:10 Albumin 4.1 g/dL (3.5-5.2) 06/04/23 13:10 Globulin 2.7 g/dL (1.3-4.6) 06/04/23 13:10 Discharge Plan Discharge Patient Disposition: Transfer to ED Clinical Impression: Acute cor pulmonale due to saddle embolus of pulmonary artery, Acute kidney injury Condition: Stable Prescriptions: No Action potassium chloride [Klor-Con 10] 10 mEq tablet extended release 10 meq PO DAILY PRN (Reason: when taking lasix) tramadol 50 mg tablet 50 mg PO Q4H PRN (Reason: Pain) cyclobenzaprine 10 mg tablet 10 mg PO TID PRN (Reason: Muscle Spasm) azithromycin 250 mg tablet See Rx Instructions .ROUTE .COMPLEX Rx Instructions: TAKE 2 TABLETS BY MOUTH ON DAY 1, AND THEN TAKE 1 TABLET BY MOUTH ONCE A DAY ON DAY 2 THROUGH DAY 5 (rx filled 5d/s pt finished 06/01/23) alprazolam 0.5 mg tablet 0.25 mg PO BID PRN (Reason: Anxiety) levothyroxine 125 mcg tablet 125 mcg PO DAILY@03 metoprolol tartrate 50 mg tablet 50 mg PO BID gabapentin 300 mg capsule 300 mg PO BID Rx Instructions: not started as of 06/04/23 allopurinol 300 mg tablet 300 mg PO DAILY furosemide 20 mg tablet 20 mg PO DAILY PRN (Reason: Edema) methylprednisolone 4 mg tablets,dose pack See Rx Instructions .ROUTE .COMPLEX Rx Instructions: TAKE BY MOUTH DIRECTED ON INSIDE OF PACKAGE (rx filled 05/28/23 6d/s finished 06/02/23) albuterol sulfate 90 mcg/actuation HFA aerosol inhaler 2 puff INHALATION QID PRN (Reason: Shortness Of Breath) potassium citrate 99 mg Capsule 99 mg PO DAILY PRN (Reason: gout) Referrals: Mario Hemphill DO [Primary Care Provider] - Coding Level of Care Code ED Geographic Information System Surveyor for Yaneth Haywood
[2023-06-04 14:13] LABS: Troponin(5th) Baseline 59 ng/L (0-10)
--- NOTE | 2023-06-04 14:16 | CT_ITS ---
WS: [id number] CTA OF THE CHEST WITH PULMONARY EMBOLISM PROTOCOL TECHNIQUE: High-resolution contrast enhanced CTA of the chest with coronal and sagittal reformatted i donalds with pulmonary embolism protocol. MIP images are also reviewed. CLINICAL INFORMATION: SOB following COVID; tachycardia COMPARISON: None. DLP: 625.[address] scans at [facility] use at least one of these dose optimization techniques: automated e xposure control; mA and/or kV adjustment per patient size (includes targeted exams where dose is matc hed to clinical indication); or iterative reconstruction. FINDINGS: Extensive bilateral pulmonary embolus with saddle embolus. Filling defects in the main pulmonary adri ry extending into the RIGHT and LEFT pulmonary arteries bilaterally. Diffuse extensive embolus in the bilateral segmental and subsegmental pulmonary arteries with poor pulmonary artery flow. Evidence of RIGHT heart strain. Reflux into the hepatic veins. Mixing artifact in the RIGHT atrium. T his could be further evaluated with echocardiogram to exclude thrombus. Shallow inspiration. Slight bibasilar atelectasis. Small amount of patchy infiltrate in the LEFT uppe r lobe along the fissure. Cardiomegaly. Normal caliber thoracic aorta. Adrenal glands are normal. Cho lecystectomy. Moderate esophageal hiatal hernia. Postoperative changes at the GE junction. Fatty atro phy of the pancreas. IMPRESSION: 1. Extensive bilateral pulmonary embolus including saddle embolus with poor flow to the pulmonary ar teries bilaterally. Extensive segmental and subsegmental embolus. 2. Evidence of RIGHT heart strain. Reflux into the hepatic veins. 3. Shallow inspiration. Small amount of hazy infiltrate along the LEFT upper lobe fissure. 4. Shallow inspiration 5. Cardiomegaly. Mixing artifact in the RIGHT atrium. This can be further evaluated with echocardiog vanessa to exclude thrombus 6. Postoperative change at the GE junction with moderate esophageal hiatal hernia. Notified SERENITY Mcgovern at 06/04/2023 3:10 PM.
[2023-06-04 14:21] LABS: Alanine Aminotransferase 54 U/L (0-33); Albumin Level 4.1 g/dL (3.5-5.2); Alkaline Phosphatase 124 U/L (35-105); Anion Gap 17.8 (5-19); Aspartate Amino Transferase 19 U/L (0-32); Blood Urea Nitrogen 26 mg/dL (8-23); Calcium 10.1 mg/dL (8.5-10.5); Carbon Dioxide 24 mmol/L (22-29); Chloride 103 mmol/L (98-107); Globulin 2.7 g/dL (1.3-4.6); Glomerular Filtration Rate 28.4 mL/min (90-130); Glucose 120 mg/dL (65-115); NT Pro B Type Natriuretic Pept 20776 pg/mL (0-125); Osmolality Calculated 298 mOsm/kg (285-295); Potassium 3.8 mmol/L (3.5-5.1); Sodium 141 mmol/L (136-145); Total Bilirubin 0.8 mg/dL (0.15-1.2); Total Protein 6.8 g/dL (6.6-8.7)
[2023-06-04 14:24] LABS: D Dimer >= 20.00 ug/mLFEU (0-0.59)
--- NOTE | 2023-06-04 14:38 | PC.PHAR ---
pt states she takes care of her own medications-pt states she finished her z-pack filled 05/28/23 5d/s finished 06/01/23 and medrol dose brendan filled 05/28/23 6d/s finished 06/02/23-pt states she hasnt started gabapentin 300mg bid as of 06/04/23 rx filled 05/16/23 30d/s-notes are made in the pharmacy comments
[2023-06-04] MEDS: iohexol 350 mg/mL 500 mL Btl (per mL) IV (15:00)
[2023-06-04 15:34] LABS: Troponin 5 2HR 52.19 ng/L (0-10)
[2023-06-04 15:41] LABS: Troponin 5 2HR Delta -6.81 ABS# (0-10)
[2023-06-04] MEDS: heparin 5,000 unit/mL INJ 1 mL IV (15:45)
[2023-06-04] MEDS: heparin drip 25,000 UNIT/500 ML PREMIX 36 UNIT IV (15:46)
--- NOTE | 2023-06-04 16:07 | ECG_ITS ---
[facility] Test Date: 2023-06-04 Pat Name: Lauren Boyd Department: Room: Gender: Female Associate Manager Affiliate Marketing: : 1960 Requested By: Padmini Smith Order Number: [id number] Stef MD: Marshall Perez M.D. Measurements Intervals [place] Rate: 111 P: 0 FL: 0 QRS: -81 QRSD: 141 T: 141 QT: 441 QTc: 600 Interpretive Statements ATRIAL FLUTTER/TACHYCARDIA WITH RAPID VENTRICULAR RESPONSE INTRAVENTRICULAR CONDUCTION DELAY [130+ ms QRS DURATION] Compared to ECG 06/04/2023 13:45:21 Intraventricular conduction delay now present Sinus tachycardia no longer present First degree AV block no longer present Right ventricular hypertrophy no longer present Incomplete right bundle-branch block no longer present Left anterior fascicular block no longer present Myocardial infarct finding no longer present ST (T wave) deviation no longer present Electronically Signed On 06-04-2023 23:28:45 CONTRACT ADMIN by Marshall Perez M.D. [id number]
[2023-06-04] MEDS: sodium chloride 0.9% 1,000 ML 999 ML IV (16:15)
== END 2023-06-04 17:08 ==
PROVIDERS: Emergency Medicine; Emergency Provider Physician Assistant; PCP Electrodiagnostic Medicine
DX: I26.02 Saddle embolus of pulmonary artery with acute cor pulmonale (principal); N17.9 Acute kidney failure, unspecified; I10 Essential (primary) hypertension
CPT/HCPCS: 36415; 71045; 71275; 80053; 83880; 84484; 85025; 85378; 93005; 96361; 96374; 99291; J1644; J7030; Q9967

== ENCOUNTER 2024-09-17 14:23 | Emergency (ER) | payer MEDICARE, SELFPAY ==
[2024-09-17 14:30] VITALS: BP 120/69; PULSE 102; RESP 22; TEMP 38.1; O2SAT 89; BMI 59.6
[2024-09-17 14:31] VITALS: BP 120/69; PULSE 100; O2SAT 98
--- NOTE | 2024-09-17 14:31 | XR_ITS ---
WS: [id number] Portable AP supine chest, 09/17/2024 Clinical Data: fever Comparison: None. Findings: No nodules, masses or effusions are seen. The heart is enlarged. The pulmonary vascularity is not increased. No pneumonia or pneumothorax is seen. XR/XR chest 1V portable [id number] Impression: Cardiomegaly
--- NOTE | 2024-09-17 14:34 | ECG_ITS ---
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 Measurements Intervals [place] Rate: 107 P: 0 MS: 0 QRS: 16 QRSD: 102 T: 91 QT: 316 QTc: 423 Interpretive Statements ATRIAL FIBRILLATION WITH RAPID VENTRICULAR RESPONSE NONSPECIFIC ST & T-WAVE ABNORMALITY Compared to ECG 06/04/2023 16:07:39 T-wave abnormality now present Atrial flutter no longer present Intraventricular conduction delay no longer present Electronically Signed On 09-19-2024 07:52:00 PRODUCTION FINISHER by Irwin Mckeon M.D. [email or web address] [id number]
--- NOTE | 2024-09-17 14:39 | W.ED.NEUROSD ---
HPI - Neuro Symptoms/Deficit General: Chief Complaint: Neuro Symptoms/Deficit Stated Complaint: confusion Time Seen by Provider: 09/17/24 14:25 Source: patient and EMS Mode of arrival: EMS Limitations: altered mental status History of Present Illness: 64-year-old female who is here with AMS by ambulance. Per EMS patient last seen normal by her at 11 he did came back to check on her and she is quite confused patient is confused here she is able to tell me her name not really able answer other questions she does have a fever 100.5. No known recent illness. Patient is also having generalized weakness she has left-sided facial droop and some slurred speech here as well supposedly patient is on Coumadin. Related Data Home Medications ?Medication ?Instructions ?Recorded ?Confirmed potassium chloride 10 mEq 10 meq PO DAILY PRN when taking 04/12/23 09/17/24 tablet,extended release (Klor-Con) lasix tramadol 50 mg tablet 50 mg PO Q4H PRN Pain 04/12/23 09/17/24 albuterol sulfate 90 mcg/actuation 2 puff inhalation QID PRN 06/04/23 09/17/24 aerosol inhaler Shortness Of Breath allopurinol 300 mg tablet 300 mg PO DAILY 06/04/23 09/17/24 alprazolam 0.5 mg tablet 0.25 mg PO BID PRN Anxiety 06/04/23 09/17/24 cyclobenzaprine 10 mg tablet 10 mg PO TID PRN Muscle Spasm 06/04/23 09/17/24 furosemide 20 mg tablet 20 mg PO DAILY PRN Edema 06/04/23 09/17/24 metoprolol tartrate 50 mg tablet 50 mg PO BID 06/04/23 09/17/24 diclofenac sodium 1 % topical gel 4 g topical QID PRN joint pain 09/17/24 09/17/24 (Arthritis Pain (diclofenac)) levothyroxine 150 mcg tablet 150 mcg PO DAILY 09/17/24 09/17/24 rivaroxaban 20 mg tablet (Xarelto) 20 mg PO DAILY 09/17/24 09/17/24 Allergies Allergy/AdvReac Type Severity Reaction Status Date / Time codeine Allergy Unknown Unknown Verified 05/02/23 10:58 Review of Systems General: Reports: ROS unobtainable due to mental status [facility] ED PFSH: Medical History History of cardioversion Hypertension Hypothyroidism Obesity Surgical History S/P cholecystectomy S/P gastric bypass S/P hysterectomy Family History Mother Cancer Other CAD (coronary artery disease) Social History Smoking and tobacco/nicotine status: never used tobacco/nicotine Alcohol intake: never Household members: spouse Marital status: NIH stroke score NIHSS: Level Of Consciousness - 1a: 0 Level Of Consciousness Questions - 1b: Both Correct Level Of Consciousness Commands - 1c: One Correct Best Gaze - 2: Normal Visual Jones - 3: No Visual Loss Facial Palsy - 4: Partial Paralysis Motor Arm Right - 5: No Drift Motor Arm Left - 5: No Drift Motor Leg Right - 6: Effort Against [place] Motor Leg Left - 6: Effort Against [place] Limb Ataxia - 7: Absent Sensory - 8: Normal Best Language - 9: No Aphasia Dysarthia - 10: Mild/Moderate Dysarthia Extinction And Inattention - 11: 0 Score: Total Score: 8 Course Vital Signs: Vital signs: Vital Signs Temperature 100.5 F H 09/17/24 14:30 Pulse Rate 102 H 09/17/24 14:30 Respiratory Rate 22 H 09/17/24 14:30 Blood Pressure 120/69 09/17/24 14:30 Pulse Oximetry 89 L 09/17/24 14:30 Oxygen Delivery Me thod Room Air 09/17/24 14:30 MDM - Neuro Symptoms/Deficit Medical Decision Making Patient presents here with altered mental status with strokelike symptoms she is also febrile and septic. CTA does show a thrombus she is not a lytic candidate due to being on Xarelto I have spoke to Ashley I did speak to their neurologist who spoke to the interventional neurologist who looked at her films and would like to attempt a thrombectomy. Patient was given IV fluids did not give her the full sepsis bolus as she has CHF and was having some increased work of breathing. Did get blood cultures did start antibiotics here did not delay her transfer for the full antibiotics given due to the time sensitivity of getting her to [facility] for the thrombectomy. We did call air there 45 minutes out speaking to family patient is obese and the last 2 times I tried to fly her they were not able to due to her size so decision was made to life threat her by ground. Her blood pressures here been stable. Medical Records I reviewed the patient's medical records. Lab Data I reviewed the patient's lab results. 09/17/24 14:38 09/17/24 14:38 Radiology Impressions Chest X-Ray 09/17/24 14:31 Impression: Cardiomegaly Head CT 09/17/24 14:46 IMPRESSION: 1. No evidence of intracranial hemorrhage or mass effect. 2. No acute intracranial findings. Notified Addison Argueta MD at 09/17/2024 2:54 PM. Head/Neck CTA 09/17/24 14:46 IMPRESSION: 1. Occlusion of the RIGHT M1 segment just distal to the origin with rapid tapering. This remains occluded in the mid and distal segments. Decreased vascularity RIGHT basal ganglia and MCA territory with some persistent cortical flow. Small amount of residual or collateral flow in the insular branches. 2. Retropharyngeal course to both cervical ICAs. Both ICAs are patent to the skull base. 3. Codominant and patent vertebral arteries bilaterally. Proximal basilar artery is patent. 4. Persistent RIGHT CANT GANG SAWYER. Notified Addison Argueta MD at 09/17/2024 3:32 PM. Laboratory Results WBC 17.63 10^3/uL (3.29-11.43) H 09/17/24 14:38 RBC 4.87 10^6/uL (3.85-5.65) 09/17/24 14:38 Hgb 10.90 g/dL (11.27-16.99) L 09/17/24 14:38 Hct 36.6 % (36-47) 09/17/24 14:38 MCV 75.2 fl (85-98) L 09/17/24 14:38 MCH 22.4 pg (27-33) L 09/17/24 14:38 MCHC 29.8 g/dL (30-55) L 09/17/24 14:38 RDW 17.2 % (12.1-15.1) H 09/17/24 14:38 Plt Count 159 10^3/cmm (157-399) 09/17/24 14:38 MPV 11.1 fL (7.4-10.4) H 09/17/24 14:38 Neut % (Auto) 93.7 % 09/17/24 14:38 Lymph % (Auto) 2.7 % 09/17/24 14:38 [place] % (Auto) 1.6 % 09/17/24 14:38 Eos % (Auto) 0.2 % 09/17/24 14:38 Baso % (Auto) 0.2 % 09/17/24 14:38 Neut # (Auto) 16.51 10^3/uL (1.8-7.7) H 09/17/24 14:38 Lymph # (Auto) 0.5 10^3/uL (0.8-4.8) L 09/17/24 14:38 [place] # (Auto) 0.3 10^3/uL (0.2-0.9) 09/17/24 14:38 Eos # (Auto) 0.0 10^3/uL (0.0-0.8) 09/17/24 14:38 Baso # (Auto) 0.0 10^3/uL (0.0-0.1) 09/17/24 14:38 Nucleated RBC % (auto) 0 % 09/17/24 14:38 Nucleated RBCs # 0.0 /100WBC 09/17/24 14:38 PT 15.30 SECONDS (12.1-14.9) H 09/17/24 14:38 INR 1.13 (0.8-1.2) 09/17/24 14:38 Specimen Type Arterial 09/17/24 15:00 Sample Site Brachial, right 09/17/24 15:00 ABG pH 7.45 (7.35-7.45) 09/17/24 15:00 ABG pCO2 27.7 mmHg (35-45) L 09/17/24 15:00 ABG pO2 99.5 mmHg (80.0-100.0) 09/17/24 15:00 ABG PO2/FiO2 Ratio 473 09/17/24 15:00 ABG HCO3 19.4 mmol/L (22-26) L 09/17/24 15:00 ABG Base Excess -3.5 mmol/L (-2.0-2.0) L 09/17/24 15:00 [place]by Test N/a 09/17/24 15:00 Hematocrit 33.1 % (37-47) L 09/17/24 15:00 Hgb O2 Saturation 96.3 % (95-100) 09/17/24 15:00 Carboxyhemoglobin 1.3 %THgb (0.4-20.1) 09/17/24 15:00 Methemoglobin 1.2 % (0.4-1.5) 09/17/24 15:00 Total Hemoglobin 10.8 g/dL (12-16) L 09/17/24 15:00 O2 Delivery Device Room air 09/17/24 15:00 FiO2 21.0 % 09/17/24 15:00 Relations Liaison ID [place] 09/17/24 15:00 Sodium 135 mmol/L (136-145) L 09/17/24 14:38 Potassium 4.4 mmol/L (3.5-5.1) 09/17/24 14:38 Chloride 100 mmol/L (98-107) 09/17/24 14:38 Carbon Dioxide 18 mmol/L (22-29) L 09/17/24 14:38 Anion Gap 21.4 (5-19) H 09/17/24 14:38 BUN 29 mg/dL (8-23) H 09/17/24 14:38 Creatinine 2.6 mg/dL (0.5-0.9) H 09/17/24 14:38 GFR Calculation 18.5 mL/min (90-130) L 09/17/24 14:38 Glucose 135 mg/dL (65-115) H 09/17/24 14:38 Calculated Osmolality 288 mOsm/kg (285-295) 09/17/24 14:38 Lactic Acid 4.8 mmol/L (0.5-2.2) H* 09/17/24 14:38 Calcium 9.4 mg/dL (8.5-10.5) 09/17/24 14:38 Magnesium 1.6 mg/dL (1.7-2.3) L 09/17/24 14:38 Total Bilirubin 0.8 mg/dL (0.15-1.2) 09/17/24 14:38 AST 21 U/L (0-32) 09/17/24 14:38 ALT 15 U/L (0-33) 09/17/24 14:38 Alkaline Phosphatase 135 U/L (35-105) H 09/17/24 14:38 NT-Pro-B Natriuret Pep 94469 pg/mL (0-125) H 09/17/24 14:38 Total Protein 6.7 g/dL (6.6-8.7) 09/17/24 14:38 Albumin 3.6 g/dL (3.5-5.2) 09/17/24 14:38 Globulin 3.1 g/dL (1.3-4.6) 09/17/24 14:38 TSH 5.49 uIU/mL (0.27-4.20) H 09/17/24 14:38 All radiology interpretation(s) finalized by discharge EKG Data EKG 1: I personally reviewed and interpreted this EKG as follows: EKG interpretation date: 09/17/24 EKG interpretation time: 14:34 Interpretation: sinus tach hr [address] elevation qrs 102 qtc 379 Discharge Plan Discharge Condition: Stable Prescriptions: No Action potassium chloride [Klor-Con 10] 10 mEq tablet extended release 10 meq PO DAILY PRN (Reason: when taking lasix) tramadol 50 mg tablet 50 mg PO Q4H PRN (Reason: Pain) cyclobenzaprine 10 mg tablet 10 mg PO TID PRN (Reason: Muscle Spasm) alprazolam 0.5 mg tablet 0.25 mg PO BID PRN (Reason: Anxiety) metoprolol tartrate 50 mg tablet 50 mg PO BID allopurinol 300 mg tablet 300 mg PO DAILY furosemide 20 mg tablet 20 mg PO DAILY PRN (Reason: Edema) albuterol sulfate 90 mcg/actuation HFA aerosol inhaler 2 puff INHALATION QID PRN (Reason: Shortness Of Breath) levothyroxine 150 mcg tablet 150 mcg PO DAILY diclofenac sodium [Arthritis Pain (diclofenac)] 1 % gel 4 g TOPICAL QID PRN (Reason: joint pain) Xarelto 20 mg tablet 20 mg PO DAILY Referrals: Mario Hemphill DO [Referring] - Print Language: German Coding Level of Care Code ED Dehydration Plant Operator for Chg Chastity
--- NOTE | 2024-09-17 14:46 | CT_ITS ---
WS: [id number] CT HEAD TECHNIQUE: Noncontrast CT of the head obtained from the skullbase to the vertex. CLINICAL INFORMATION: escamilla COMPARISON: None. DLP: All CT scans at [facility] use at least one of these dose optimization techniques: automated exposure control; mA and/or kV adjustment per patient size (includes targeted exams where dose is matched to clinical indication); or iterative reconstruction. FINDINGS: No evidence of intracranial hemorrhage or mass effect. Ventricular system and basal cisterns are patent. Mild small vessel changes with mild parenchymal volume loss. No extra-axial fluid collections. No evidence of mass or mass effect. ' Paranasal sinuses and mastoid air cells are well aerated. .Normal visualized soft tissues. CT/CT head wo con* [id number] IMPRESSION: 1. No evidence of intracranial hemorrhage or mass effect. 2. No acute intracranial findings. Notified Addison Argueta MD at 09/17/2024 2:54 PM.
--- NOTE | 2024-09-17 14:46 | CT_ITS ---
WS: [id number] CTA HEAD AND NECK TECHNIQUE: Contrast enhanced CTA of the head and neck with coronal and sagittal reformatted images and maximum intensity projection (MIP) images. NASCET criteria utilized. CLINICAL INFORMATION: cva DLP: 486.[address] scans at [facility] use at least one of these dose optimization techniques: automated exposure control; mA and/or kV adjustment per patient size (includes targeted exams where dose is matched to clinical indication); or iterative reconstruction. FINDINGS: Some images degraded by motion RIGHT: Less than 50% RIGHT ICA stenosis. Retropharyngeal course RIGHT cervical ICA LEFT: Less than 50% LEFT ICA stenosis. Retropharyngeal course of LEFT cervical ICA INTRACRANIAL CTA: Occlusion of the RIGHT M1 segment just distal to the origin with rapid tapering. No flow in the M1 segment just distal to the origin. Small amount of residual or collateral flow involving the insular branches with decreased but some persistent cortical flow involving the RIGHT frontal and parietal convexities. Decreased flow to the RIGHT basal ganglia. Normal vascularity to the EDDI territory. Normal vascularity to the LEFT MCA territory. Both vertebral arteries are patent. Proximal basilar artery is patent. Persistent RIGHT INSPECTOR OPTICAL INSTRUMENT. Normal vascularity to the INSPECTOR OPTICAL INSTRUMENT territories bilaterally. Straightening with reversal of the normal cervical lordosis. CT/CT angio headneck* [id number] IMPRESSION: 1. Occlusion of the RIGHT M1 segment just distal to the origin with rapid tape ring. This remains occluded in the mid and distal segments. Decreased vasculari ty RIGHT basal ganglia and MCA territory with some persistent cortical flow. Sm all amount of residual or collateral flow in the insular branches. 2. Retropharyngeal course to both cervical ICAs. Both ICAs are patent to the s kull base. 3. Codominant and patent vertebral arteries bilaterally. Proximal basilar adri ry is patent. 4. Persistent RIGHT INSPECTOR OPTICAL INSTRUMENT. Notified Addison Argueta MD at 09/17/2024 3:32 PM.
[2024-09-17 14:48] LABS: Basophils % 0.2 %; Eosinophils % 0.2 %; Hematocrit 36.6 % (36-47); Lymphocytes # 0.5 10^3/uL (0.8-4.8); Lymphocytes % 2.7 %; Mean Corpuscular HGB Conc 29.8 g/dL (30-55); Mean Corpuscular Hemoglobin 22.4 pg (27-33); Mean Corpuscular Volume 75.2 fl (85-98); Mean Platelet Volume 11.1 fL (7.4-10.4); Monocytes # 0.3 10^3/uL (0.2-0.9); Monocytes % 1.6 %; Neutrophils # 16.51 10^3/uL (1.8-7.7); Neutrophils % 93.7 %; Nucleated Red Blood Cells % 0 %; Platelet Count 159 10^3/cmm (157-399); Red Blood Count 4.87 10^6/uL (3.85-5.65); Red Cell Distribution Width 17.2 % (12.1-15.1); White Blood Count 17.63 10^3/uL (3.29-11.43)
[2024-09-17] MEDS: iohexol 350 mg/mL 500 mL Btl (per mL) IV (14:50)
[2024-09-17 15:06] LABS: INR 1.13 (0.8-1.2)
[2024-09-17 15:07] VITALS: BP 109/89; PULSE 107; O2SAT 99
[2024-09-17] MEDS: valproic acid inj 500 MG in sodium chloride 0.9% 50 ML 55 MG IV (15:11)
[2024-09-17 15:13] LABS: Lactic Sepsis W/Reflex 4.8 mmol/L (0.5-2.2)
--- NOTE | 2024-09-17 15:13 | PM.SAN ---
Stroke Alert Activation ED Arrival Date: 09/17/24 ED Arrival Time: 14:30 ED Physican at Bedside: 14:30 Last Known Normal/at Baseline: 3-4 hours ago Other Last Known Well Infomation: 64-year-old woman on unknown blood thinner at the time that she arrived here, possibly Coumadin, possibly Xarelto and we do not have a medication list. EMS indicated that the patient was last known well around 11:00 and we were in a bella to evaluate her for thrombolytic therapy within the 4-1/2-hour window. I came directly to the emergency department as soon as she had her CT head and had a chance to evaluate the patient and find diffuse encephalopathy, paratonic rigidity and she is not following commands, especially seems unable to move her legs. She walked to the chair and sat down before she came here. Her called Billy Dawkins and talked with the pharmacist while I was doing my exam and determined that the patient is on Xarelto and that she is compliant. Her says that she has not been herself for maybe as long as 3 months. She has been mildly confused. She is on some pain medicine, not sure what she is on but he thought maybe it was the pain medicine that was making her confused. We still do not have a full medication list but we are in the process of obtaining that. She had serious illness in 2022 that was complicated by saddle embolus and acute cor pulmonale for which she was transferred from here for thrombectomy. Her says that that was taken care of and then she was started on Xarelto and she has been compliant with that. She has had a headache for couple of days. This morning she was less alert and she became more confused at around 11 AM. Her speech was slurred. Her temperature was slightly elevated at 100.5 and on arrival here her white count was markedly elevated and she is diffusely encephalopathic. She has mild focal findings that she is ignoring her left side, but she is not moving either of her lower extremities. Her CT scan of the head does not show any focal findings but her CT angiogram shows right middle cerebral artery occlusion, proximal right middle cerebral artery. Stroke Alert Activation Time: 14:32 Stroke MD @ Bedside Time: 14:35 NIH Stroke Scale Time: 15:00 NIH stroke score NIHSS: Level Of Consciousness - 1a: 2 Level Of Consciousness Questions - 1b: Neither Correct Level Of Consciousness Commands - 1c: One Correct Best Gaze - 2: Normal Visual Jones - 3: No Visual Loss (She is not cooperative but responds to threat bilaterally) Facial Palsy - 4: Minor Paralysis Motor Arm Right - 5: No Drift Motor Arm Left - 5: Drift Motor Leg Right - 6: No Effort Against [place] Motor Leg Left - 6: No Effort Against [place] Limb Ataxia - 7: Absent Best Language - 9: Mild/Moderate Aphasia (Mildly confused. Not cooperative) Dysarthia - 10: Mild/Moderate Dysarthia Extinction And Inattention - 11: 0 (Unable) Stroke Alert Data/Treatment Time to CT of Head: 14:46 CT Results Date: 09/17/24 CT Results Time: 14:54 CT Impression: normal Stroke Risk Factors: hypertension and obesity tPA Contraindication: tPA Contraindication: Medical contraindication (on xarelto) tPA Admin Prior to Arrival: No Patient & Family Educated on: Cause of Stroke, Risk Factors and Treament Plan Other Patient & Family Education: Thrombolytic cannot be given with Xarelto. The patient appears to be septic with markedly elevated white count but she is also having an acute right middle cerebral artery stroke. It is unlikely that she would be a candidate for thrombectomy but Dr. Argueta is going to call and make sure that no one would be willing to perform thrombectomy. Critical Care Time Critical Care Time: 30 - 74 mins A&P Assessment and plan (1) Acute right arterial ischemic stroke, middle cerebral artery (MCA): Morbidly obese 64-year-old woman who had previous saddle embolus and is on Xarelto presents with several days of progressively altered mental status, new high amplitude tremor, bilateral leg weakness such that she is not moving either of her legs (no sensory level although she was not cooperative for sensory testing and claimed to feel the pin whether it was my finger or the pin), intact reflexes at the knees and ankles with bilateral upgoing toes, diffuse paratonic rigidity. She has occlusion of the M1 segment of the right middle cerebral artery. She is compliant on Xarelto and not a candidate for thrombolytic therapy. Best to make sure that Ashley would not consider thrombectomy, but this patient is extremely complex, probably acutely septic with very poor prognosis. (2) Morbid obesity: (3) Sepsis: PDMP PDMP Reviewed: Not Reviewed Coding Level of Care Code Acute Code for Chg Fwd Diagnoses Acute right arterial ischemic stroke, middle cerebral artery (MCA) I63.511 Morbid obesity E66.01 Sepsis A41.9
[2024-09-17 15:15] LABS: ABG PCO2 27.7 mmHg (35-45); ABG PH Result 7.45 (7.35-7.45); Arterial Blood Gas Hematocrit 33.1 % (37-47); Base Excess ABG -3.5 mmol/L (-2.0-2.0); Blood Gas Operator Identificat BROMA; Blood Gas Sample Site Brachial, right; Blood Gas Sample Type Arterial; Carboxyhemoglobin 1.3 %THgb (0.4-20.1); HCO3 ABG 19.4 mmol/L (22-26); HGB O2 Sat 96.3 % (95-100); Methemoglobin 1.2 % (0.4-1.5); Oxygen Device ROOM AIR; PO2 ABG 99.5 mmHg (80.0-100.0); PO2 FiO2 Ratio Arterial Blood 473; Total Hemoglobin 10.8 g/dL (12-16)
--- NOTE | 2024-09-17 15:15 | PC.PHAR ---
Addendum entered by Lauren Tinoco 09/17/24 15:18: Verified all medications by phone with Lulu Cervantes. Original Note: Unknown whether pt took am meds today.
[2024-09-17 15:17] LABS: Alanine Aminotransferase 15 U/L (0-33); Albumin Level 3.6 g/dL (3.5-5.2); Alkaline Phosphatase 135 U/L (35-105); Anion Gap 21.4 (5-19); Aspartate Amino Transferase 21 U/L (0-32); Blood Urea Nitrogen 29 mg/dL (8-23); Calcium 9.4 mg/dL (8.5-10.5); Carbon Dioxide 18 mmol/L (22-29); Chloride 100 mmol/L (98-107); Creatinine Clr Calc Pharmacy 37.2895; Globulin 3.1 g/dL (1.3-4.6); Glomerular Filtration Rate 18.5 mL/min (90-130); Glucose 135 mg/dL (65-115); Magnesium 1.6 mg/dL (1.7-2.3); NT Pro B Type Natriuretic Pept 11516 pg/mL (0-125); Osmolality Calculated 288 mOsm/kg (285-295); Potassium 4.4 mmol/L (3.5-5.1); Sodium 135 mmol/L (136-145); Thyroid Stimulating Hormone 5.49 uIU/mL (0.27-4.20); Total Bilirubin 0.8 mg/dL (0.15-1.2); Total Protein 6.7 g/dL (6.6-8.7)
[2024-09-17] MEDS: sodium chloride 0.9% 1,000 ML 999 ML IV ×3 (15:26→16:24)
[2024-09-17 15:37] VITALS: BP 155/99; PULSE 95; O2SAT 99
[2024-09-17] MEDS: acetaminophen 325 mg Tablet 650 MG PO (15:37)
[2024-09-17 16:07] VITALS: BP 154/101; PULSE 108; O2SAT 96
[2024-09-17] MEDS: piperacillin-tazobactam 3.375 GM in sodium chloride 0.9% (plus) 50 ML IV (16:21)
[2024-09-17] MEDS: VANCOMYCIN ADD-Vantage 1,000 MG in 0.9% NaCl ADD-Vantage 250 ML 250 MG IV (16:21)
[2024-09-17 16:33] LABS: Reflex Lactate Order REFLEX LACTIC ORDERD
[2024-09-17 16:41] LABS: Influenza A NEGATIVE (Negative); Influenza B NEGATIVE (Negative); Respiratory Syncytial Virus Ce NEGATIVE (Negative); SARS-CoV-2 PCR NEGATIVE (Negative)
--- NOTE | 2024-09-17 16:42 | PC.NURSE ---
ABX DELAYED DUE TO NEED FOR BLOOD CULTURES. UNABLE TO TEACH CAUTI EDUCATION DUE TO PATIENT ALTERED STATUS.
[2024-09-17 16:50] LABS: Bilirubin Urine Negative (Negative); Blood Urine 1+ (Negative); Glucose Urine UA Negative (Normal); Ketones Urine Trace (Negative); Leukocyte Esterase Urine 2+ (Negative); Nitrate Urine Positive (Negative); Protein Urine 2+ (Negative); Specific Gravity, Urine 1.029 (1.005-1.030); Urine Appearance Cloudy (CLEAR); Urine Color Yellow (Yellow); Urobilinogen Urine 0.2 mg/dL (Negative)
[2024-09-17 16:53] VITALS: BP 154/101; PULSE 108; O2SAT 96
[2024-09-17 16:59] LABS: Add Urine Microscopic? YES; Bacteria Urine 4+ /hpf; UA Manual Slide Review YES; WBC Urine 80-100 /hpf (0-5)
[2024-09-17 17:00] LABS: Add Urine Culture? Yes
[2024-09-17 17:05] LABS: Glucose Point of Care 131 mg/dL (70-110)
[2024-09-18 03:21] LABS: Acinetobacter baumannii Not Detected (NOT DETECT); Bacteroides fragilis Not Detected (NOT DETECT); CTX-M Not Detected (NOT DETECT); Citrobacter Not Detected (NOT DETECT); Cronobacter sakazakii Not Detected (NOT DETECT); Enterobacter cloacae complex Not Detected (NOT DETECT); Enterobacter non cloacae Not Detected (NOT DETECT); Fusobacterium necrophorum Not Detected (NOT DETECT); Fusobacterium nucleatum Not Detected (NOT DETECT); Haemophilus influenzae Not Detected (NOT DETECT); IMP Resistance Gene Not Detected (NOT DETECT); KPC Resistance Gene Not Detected (NOT DETECT); Klebsiella pneumoniae group Not Detected (NOT DETECT); Morganella morganii Not Detected (NOT DETECT); NDM Resistance Gene Not Detected (NOT DETECT); Neisseria meningitidis Not Detected (NOT DETECT); OXA Resistance Gene Not Detected (NOT DETECT); Pan Candida Not Detected (NOT DETECT); Pan Gram-Positive Not Detected (NOT DETECT); Proteus mirabilis Not Detected (NOT DETECT); Pseudomonas aeruginosa Not Detected (NOT DETECT); Salmonella Not Detected (NOT DETECT); Serratia Not Detected (NOT DETECT); Serratia marcescens Not Detected (NOT DETECT); Stenotrophomonas maltophilia Not Detected (NOT DETECT); VIM Resistance Gene Not Detected (NOT DETECT)
== END 2024-09-17 15:20 ==
PROVIDERS: Emergency Provider Emergency Medicine; PCP Family Medicine
DX: I63.511 Cerebral infarction due to unspecified occlusion or stenosis of right middle cerebral artery (principal); E66.01 Morbid (severe) obesity due to excess calories; I10 Essential (primary) hypertension; I50.9 Heart failure, unspecified
CPT/HCPCS: 36416; 36600; 51702; 70450; 70496; 70498; 71045; 80053; 81001; 82805; 82962; 83605; 83735; 83880; 84443; 85025; 85610; 87040; 87077; 87086; 87150; 87186; 87205; 87637; 93005; 96365; 96375; 99285; J2543; J3370; J3490; J7030; J7050

== ENCOUNTER 2025-04-06 08:32 | Emergency (ER) | payer MEDICARE, OTHER, SELFPAY ==
--- OUTSIDE RECORDS SUMMARY | 2025-03-08 06:00 | XMS_ITS ---
Author Organization [facility] Address [address] [place] [address] Care Team Providers Care Office Electrician Name Role Phone Cody Beckman MD Primary Care Provider Hermes Cee [phone] REASON FOR VISIT 4 wks per 02/01/25 dr darin perera Encounters Encounter Location Date Provider Diagnosis [facility] [address] [place] [id number] 03/08/2025 Hermes Monson Plan Of Treatment Next Appt Details Provider Name:Hermes bonilla, 04/26/2025 10:15:00 AM, [address] [place] [address], [phone], Progress Notes * Lauren FERNÁNDEZ SueDOB:1959 (64 yo F)Acc No.[id number]:03/08/2025 Progress Notes Patient: Lauren Booker Provider: Gwendolyn Monson MD :1960 A ge:64 Y S ex:Female Date:03/08/2025 Address:[id number] Pcp:Cody Beckman MD Subjective: * Chief Complaints: * 4 wks per 02/01/25 dr darin perera * Electronic signature of Luke Monson MD on 04/06/2025 at 09:16 AM CDT Sign off status: Pending * Provider: Gwendolyn Monson MD Date: 0 03/08/2025 Generated for Jung flores/Darwin/Arsenio on: 0 04/06/2025 09:16 AM CDT
--- OUTSIDE RECORDS SUMMARY | 2025-03-25 06:00 | XMS_ITS ---
Author Organization [facility] Address [address] [facility] [place] [address] Care Team Providers Care Crop Insurance Claims Adjuster Name Role Phone Cody Beckman MD Primary Care Provider Hermes Cee [phone] REASON FOR VISIT JENS ECV Encounters Encounter Location Date Provider Diagnosis [facility] [address] [place] [address], [place] [address] 03/25/2025 Hermes Monson Plan Of Treatment Next Appt Details Provider Name:Hermes bonilla, 04/26/2025 10:15:00 AM, [address] [place] [address], [place], [phone], Progress Notes * Lauren FERNÁNDEZeDOB:1959 (64 yo F)Acc No.[id number]:03/25/2025 Patient: Lauren Booker Provider: Gwendolyn Monson MD :1960 A ge:64 Y S ex:Female Date:03/25/2025 Address:[id number] Pcp:Cody Beckman MD Subjective: * Chief Complaints: * T EE ECV Billing Information: * Procedure Codes: * Electronic signature of Luke Monson MD on 04/06/2025 at 09:16 AM CDT Sign off status: Pending * Provider: Gwendolyn Monson MD Date: 0 03/25/2025 Generated for Jung flores/Darwin/Neilitting on: 0 04/06/2025 09:16 AM CDT
--- NOTE | 2025-04-06 08:47 | ECG_ITS ---
[facility] [employer] Test Date: 2025-04-06 Pat Name: Lauren Boyd Department: Room: Gender: Female Avionics Test Technician: : 1960 Requested By: Santos Mello Order Number: [id number] Stef MD: Marshall Perez M.D. Measurements Intervals [place] Rate: 54 P: 0 NJ: 0 QRS: -7 QRSD: 130 T: 144 QT: 450 QTc: 428 Interpretive Statements ATRIAL FIBRILLATION WITH SLOW VENTRICULAR RESPONSE MODERATE INTRAVENTRICULAR CONDUCTION DELAY [105+ ms QRS DURATION, 80+ ms Q/S IN V1/V2, NO Q AND 60+ ms R IN I/aVL/V5/V6] ST DEVIATION AND MODERATE T-WAVE ABNORMALITY, CONSIDER LATERAL ISCHEMIA [-0.1+ mV T-WAVE IN I/aVL/V5/V6] Compared to ECG 09/17/2024 14:34:18 Intraventricular conduction delay now present Possible ischemia now present T-wave abnormality still present Electronically Signed On 04-06-2025 17:50:15 CDT by Marshall Perez M.D. [email or web address]
--- NOTE | 2025-04-06 08:51 | W.ED.GENADLT ---
HPI - General Adult General: Chief complaint: General Medical Stated complaint: dizzy, confusion, leg pain, sob, irregular hr Time Seen by Provider: 04/06/25 08:35 History of Present Illness: 64-year-old female presents emergency room with dizziness low blood pressure generally not feeling well. She has a history of A-fib flutter that tried previously, cardioversion unsuccessful. Titrated down on send and stopped some of her medications because her blood pressure is running too low. This morning she felt like her blood pressure was still low. She has not had any chest pain she has has some very mild shortness of breath. She is still taking Xarelto. She tells me she has stopped the metoprolol. She has a heart monitor in place. She is bradycardic on arrival here has underlying rhythm of a flutter. Associated symptoms: Reports dyspnea and malaise; Deny chest pain or rash Related Data Home Medications ?Medication ?Instructions ?Recorded ?Confirmed potassium chloride 10 mEq 10 meq PO DAILY PRN when taking 04/12/23 09/17/24 tablet,extended release (Klor-Con) lasix tramadol 50 mg tablet 50 mg PO Q4H PRN Pain 04/12/23 09/17/24 albuterol sulfate 90 mcg/actuation 2 puff inhalation QID PRN 06/04/23 09/17/24 aerosol inhaler Shortness Of Breath allopurinol 300 mg tablet 300 mg PO DAILY 06/04/23 09/17/24 alprazolam 0.5 mg tablet 0.25 mg PO BID PRN Anxiety 06/04/23 09/17/24 cyclobenzaprine 10 mg tablet 10 mg PO TID PRN Muscle Spasm 06/04/23 09/17/24 furosemide 20 mg tablet 20 mg PO DAILY PRN Edema 06/04/23 09/17/24 metoprolol tartrate 50 mg tablet 50 mg PO BID 06/04/23 09/17/24 diclofenac sodium 1 % topical gel 4 g topical QID PRN joint pain 09/17/24 09/17/24 (Arthritis Pain (diclofenac)) levothyroxine 150 mcg tablet 150 mcg PO DAILY 09/17/24 09/17/24 rivaroxaban 20 mg tablet (Xarelto) 20 mg PO DAILY 09/17/24 09/17/24 Previous Rx's ?Medication ?Instructions ?Recorded aspirin 81 mg tablet,delayed 81 mg PO DAILY #30 tabs 04/06/25 release isosorbide mononitrate 30 mg 30 mg PO DAILY #30 tabs 04/06/25 tablet,extended release 24 hr Allergies Allergy/AdvReac Type Severity Reaction Status Date / Time codeine Allergy Unknown Unknown Verified 05/02/23 10:58 heparin Allergy Unknown Verified 04/06/25 08:42 Review of Systems Const: Reports: fatigue and malaise; Denies: fever(s) or chills Card: Denies: chest pain Resp: Reports: dyspnea GI: Denies: abdominal pain : Denies: dysuria, urinary frequency or urinary urgency Musc: Denies: neck pain or back pain Skin/Breast: Denies: rash PFSH ED PFSH: Medical History Obesity History of cardioversion Hypothyroidism Hypertension Surgical History S/P cholecystectomy S/P gastric bypass S/P hysterectomy Family History Mother Cancer Other CAD (coronary artery disease) Social History Smoking and tobacco/nicotine status: never used tobacco/nicotine Alcohol intake: never Household members: spouse Marital status: Physical Exam Const: GENERAL APPEARANCE: cooperative ORIENTATION/CONSCIOUSNESS: Yes awake, Yes oriented to person, Yes oriented to place and Yes oriented to time HENMT: COMMON NORMALS: normocephalic, atraumatic and hearing grossly normal bilaterally HEAD & SCALP: normocephalic and atraumatic Resp: COMMON NORMALS: normal respiratory effort, No retractions, No use of accessory muscles and clear to auscultation bilaterally AUSCULTATION: clear to auscultation bilaterally Cardio: COMMON NORMALS: No murmurs present (Cardio) RATE: bradycardic RHYTHM: abnormal rhythm irregularly irregular GI: COMMON NORMALS: Soft to palpation and No hepatosplenomegaly present AUSCULTATION: Yes normoactive bowel sounds PALPATION: Yes Soft to palpation, No Tenderness to palpation present (GI), No Guarding due to palpation present (GI) and Yes No hepatosplenomegaly present Extremity: COMMON NORMALS: normal to inspection, capillary refill normal, no clubbing, cyanosis or edema, no calf tenderness and no pedal edema Neuro: SENSORIUM/ORIENTATION: Yes oriented to person, Yes oriented to place and Yes oriented to time Skin: COMMON NORMALS: no rashes or lesions noted GENERAL SKIN EXAM: no rashes or lesions noted Course Vital Signs: Vital signs: Vital Signs Temperature 97.8 F 04/06/25 08:57 Pulse Rate 47 L 04/06/25 12:10 Respiratory Rate 17 04/06/25 12:10 Blood Pressure 135/53 04/06/25 12:10 Pulse Oximetry 17 L 04/06/25 12:10 [facility] - General Adult Medical Decision Making Reviewed findings with patient. She has remained in A-fib with bradycardia. Chest pain occurred this morning was not had any further chest pain since.. She is currently wearing a heart monitor. She is bradycardic but her heart rate is stable. Cardiac enzymes normal. 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 Lab Data I reviewed the patient's lab results. 04/06/25 09:15 04/06/25 09:15 Radiology Impressions Chest X-Ray 04/06/25 08:59 IMPRESSION: Stable mild cardiomegaly and pulmonary venous hypertension. No acute abnormality. Laboratory Results WBC 5.47 10^3/uL (3.29-11.43) 04/06/25 09:15 RBC 4.28 10^6/uL (3.85-5.65) 04/06/25 09:15 Hgb 9.30 g/dL (11.27-16.99) L 04/06/25 09:15 Hct 32.2 % (36-47) L 04/06/25 09:15 MCV 75.2 fl (85-98) L 04/06/25 09:15 MCH 21.7 pg (27-33) L 04/06/25 09:15 MCHC 28.9 g/dL (30-55) L 04/06/25 09:15 RDW 17.8 % (12.1-15.1) H 04/06/25 09:15 Plt Count 202 10^3/cmm (157-399) 04/06/25 09:15 MPV 11.0 fL (7.4-10.4) H 04/06/25 09:15 Neut % (Auto) 58.8 % 04/06/25 09:15 Lymph % (Auto) 28.0 % 04/06/25 09:15 [place] % (Auto) 9.9 % 04/06/25 09:15 Eos % (Auto) 2.2 % 04/06/25 09:15 Baso % (Auto) 0.9 % 04/06/25 09:15 Neut # (Auto) 3.22 10^3/uL (1.8-7.7) 04/06/25 09:15 Lymph # (Auto) 1.5 10^3/uL (0.8-4.8) 04/06/25 09:15 [place] # (Auto) 0.5 10^3/uL (0.2-0.9) 04/06/25 09:15 Eos # (Auto) 0.1 10^3/uL (0.0-0.8) 04/06/25 09:15 Baso # (Auto) 0.1 10^3/uL (0.0-0.1) 04/06/25 09:15 Nucleated RBC % (auto) 0 % 04/06/25 09:15 Nucleated RBCs # 0.0 /100WBC 04/06/25 09:15 Sodium 143 mmol/L (136-145) 04/06/25 09:15 Potassium 4.1 mmol/L (3.5-5.1) 04/06/25 09:15 Chloride 105 mmol/L (98-107) 04/06/25 09:15 Carbon Dioxide 25 mmol/L (22-29) 04/06/25 09:15 Anion Gap 17.1 (5-19) 04/06/25 09:15 BUN 29 mg/dL (8-23) H 04/06/25 09:15 Creatinine 1.4 mg/dL (0.5-0.9) H 04/06/25 09:15 GFR Calculation 37.7 mL/min (90-130) L 04/06/25 09:15 Glucose 98 mg/dL (65-115) 04/06/25 09:15 Calculated Osmolality 302 mOsm/kg (285-295) H 04/06/25 09:15 Calcium 9.3 mg/dL (8.5-10.5) 04/06/25 09:15 Total Bilirubin 0.3 mg/dL (0.15-1.2) 04/06/25 09:15 AST 13 U/L (0-32) 04/06/25 09:15 ALT 8 U/L (0-33) 04/06/25 09:15 Alkaline Phosphatase 110 U/L (35-105) H 04/06/25 09:15 Troponin T Baseline 18 ng/L (0-10) H 04/06/25 09:15 Troponin T 120 Minute 16.81 ng/L (0-10) H 04/06/25 10:49 Delta Troponin T -1.19 ABS# (0-10) L 04/06/25 10:49 Total Protein 6.6 g/dL (6.6-8.7) 04/06/25 09:15 Albumin 4.4 g/dL (3.5-5.2) 04/06/25 09:15 Globulin 2.2 g/dL (1.3-4.6) 04/06/25 09:15 TSH 46.68 uIU/mL (0.27-4.20) H 04/06/25 09:15 Urine Color Yellow (Yellow) 04/06/25 10:43 Urine Appearance Clear (CLEAR) 04/06/25 10:43 Urine pH 6.0 (5-7) 04/06/25 10:43 Ur Specific [place] 1.005 (1.005-1.030) 04/06/25 10:43 Urine Protein Negative (Negative) 04/06/25 10:43 Urine Glucose (UA) Negative (Normal) 04/06/25 10:43 Urine Ketones Negative (Negative) 04/06/25 10:43 Urine Blood Negative (Negative) 04/06/25 10:43 Urine Nitrate Negative (Negative) 04/06/25 10:43 Urine Bilirubin Negative (Negative) 04/06/25 10:43 Urine Urobilinogen 0.2 mg/dL (Negative) 04/06/25 10:43 Ur Leukocyte Esterase 1+ (Negative) A 04/06/25 10:43 Urine RBC 0-2 /hpf (0-2) 04/06/25 10:43 Urine WBC 6-10 /hpf (0-5) 04/06/25 10:43 Ur Squamous Epith Cells 0-5 /hpf (0-5) 04/06/25 10:43 Amorphous Sediment Not Reportable 04/06/25 10:43 Urine Bacteria None seen /hpf (NONE) 04/06/25 10:43 Hyaline Casts 0-4 /lpf H 04/06/25 10:43 All radiology interpretation(s) finalized by discharge EKG Data EKG 1: Computer generated interpretation: Chest X-Ray 04/06/25 08:59 IMPRESSION: Stable mild cardiomegaly and pulmonary venous hypertension. No acute abnormality. EKG 04/06/2025 8:47 AM A-fib with slow ventricular sponsor rate of 54 QTc [address] No acute ST elevation changes noted. Nonspecific ST changes EKG 2: Interpretation: EKG 04/06/2020 5:10 AM A-fib with slow ventricular sponsor rate of 56 QTc 504. Compared to EKG done earlier same day no significant changes. Computer generated interpretation: Chest X-Ray 04/06/25 08:59 IMPRESSION: Stable mild cardiomegaly and pulmonary venous hypertension. No acute abnormality. EKG 3: Interpretation: EKG 04/06/2025 11:23 AM atrial fibrillation with a slow ventricular response with a rate of 51 QTc [address]. No acute ST changes noted. Compared to EKGs done previous same day Computer generated interpretation: Chest X-Ray 04/06/25 08:59 IMPRESSION: Stable mild cardiomegaly and pulmonary venous hypertension. No acute abnormality. Discharge Plan Discharge Patient Disposition: Home Clinical Impression: Atypical chest pain Condition: Stable Prescriptions: New aspirin 81 mg tablet,delayed release (DR/EC) 81 mg PO DAILY Qty: 30 0RF isosorbide mononitrate 30 mg tablet extended release 24 hr 30 mg PO DAILY Qty: 30 0RF No Action potassium chloride [Klor-Con 10] 10 mEq tablet extended release 10 meq PO DAILY PRN (Reason: when taking lasix) tramadol 50 mg tablet 50 mg PO Q4H PRN (Reason: Pain) cyclobenzaprine 10 mg tablet 10 mg PO TID PRN (Reason: Muscle Spasm) alprazolam 0.5 mg tablet 0.25 mg PO BID PRN (Reason: Anxiety) metoprolol tartrate 50 mg tablet 50 mg PO BID allopurinol 300 mg tablet 300 mg PO DAILY furosemide 20 mg tablet 20 mg PO DAILY PRN (Reason: Edema) albuterol sulfate 90 mcg/actuation HFA aerosol inhaler 2 puff INHALATION QID PRN (Reason: Shortness Of Breath) levothyroxine 150 mcg tablet 150 mcg PO DAILY diclofenac sodium [Arthritis Pain (diclofenac)] 1 % gel 4 g TOPICAL QID PRN (Reason: joint pain) Xarelto 20 mg tablet 20 mg PO DAILY Discharge Orders: Discharge ED (Routine); Ordered 04/06/25 Ordered By: Santos Davis Referrals: Cody Beckman MD [Primary Care Provider, Family Practice] Discharge Diet: Usual diet Discharge Activity: Limit activity as instructed Patient Instructions: Opioid Safety, Pain Management, Patient Portal & Millie Instructions Activity Restrictions/Additional Instructions: Thank you [facility] choosing [facility] for your healthcare needs today. It is very important that you follow up as instructed or that you return to the Emergency Department should you have concerns or if your condition changes or worsens in any way. Emergency department visits are focused on emergent conditions, in some cases you may require further evaluation on an outpatient basis. You are seen emergency room with complaints of chest discomfort your cardiac enzymes were negative there were no acute changes on your EKG. Recommend that you start a baby aspirin daily. Return to the emergency room if you have further symptoms. Will also recommend that you start isosorbide mononitrate 30 mg once daily. Follow-up with your program supervisor within the next week. (Please note that included in your discharge packet is information concerning opioid safety and pain management. This information is given to all patients were discharged from the ER regardless of their discharge diagnosis or the medicines they usually take or are prescribed.) Print Language: Yi Coding Level of Care Code ED Heat Sealing Machine Operator for Yaneth Haywood
[2025-04-06 08:57] VITALS: BP 165/74; PULSE 70; RESP 13; TEMP 36.6; O2SAT 100
--- NOTE | 2025-04-06 08:59 | XR_ITS ---
WS: [id number] XR chest 1V portable [id number] REASON FOR EXAM: A-fib, bradycardia FINDINGS: The chest is unchanged compared to 09/17/2024. Moderate tortuosity and ectasia of the thoracic aorta. Mild cardiomegaly. Moderate central pulmonary venous congestion. Calcified granulomatous disease bilaterally. No acute pulmonary parenchymal or pleural abnormality. Moderate degenerative spondylosis in the mid and lower thoracic spine. XR/XR chest 1V portable [id number] IMPRESSION: Stable mild cardiomegaly and pulmonary venous hypertension. No acute abnormality.
--- NOTE | 2025-04-06 08:59 | ECG_ITS ---
[facility] Test Date: 2025-04-06 Pat Name: Lauren Boyd Department: Room: Gender: Female Sticker On: : 1960 Requested By: Santos Mello Order Number: [id number] Stef MD: Marshall Perez M.D. Measurements Intervals [place] Rate: 56 P: 0 NM: 0 QRS: -5 QRSD: 129 T: 101 QT: 520 QTc: 504 Interpretive Statements ATRIAL FIBRILLATION WITH SLOW VENTRICULAR RESPONSE POSSIBLE LATERAL MYOCARDIAL INFARCTION , OF INDETERMINATE AGE [30 ms Q WAVE IN I/aVL/V5/V6] Diffuse nonspecific T wave changes Compared to ECG 09/17/2024 14:34:18 Myocardial infarct finding now present Electronically Signed On 04-06-2025 17:48:17 CDT by Marshall Perez M.D. [email or web address]
--- OUTSIDE RECORDS SUMMARY | 2025-04-06 09:16 | XMS_ITS | Encounter Summary ---
Author Organization [facility] Address [address] [place] [address] Care Team Providers Care Mold Forms Builder Name Role Phone Terry Gtz MD Primary Care Provider [phone] Encounter Details Date Type Department Care Team (Latest Contact Info) Description 05/07/2006 Outpatient Historical [facility] Operating Room [address] [place] [id number] Dougie Hess MD NO ADDRESS ON FILE Dysplasia of Vagina (Primary Dx) Social History Tobacco Use Types Packs/Day Years Used Date Smoking Tobacco: Never Assessed Comments Unknown Sex and Gender Information Value Date Recorded Sex Assigned at Not on file 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 Gender Identity Not on file Sexual Orientation Not on file documented as of this encounter Plan of Treatment Not on file documented as of this encounter Procedures Procedure Name Priority Date/Time Associated Diagnosis Comments POC GLUCOSE Routine 05/07/2006 10:10 AM CDT documented in this encounter Results * (ABNORMAL) POC GLUCOSE (05/07/2006 10:10 AM CDT) GLUCOSE POC 104(H) 60 - 100 mg/dL INTERFACE SYSTEM 05/07/2006 10:1 0 AM CDT Dougie Hess MD POINT OF CARE TESTING Final Re sult INTERFACE SYSTEM Refer to clinic/hospital department documented in this encounter Visit Diagnoses Diagnosis Dysplasia of vagina- Primary documented in this encounter Care Teams Mold Forms Builder Relationship Specialty Start Date End Date Terry Gtz MD [address] [place] [address] [place] [id number] PCP - General Family Practice 01/12/20 documented as of this encounter
--- OUTSIDE RECORDS SUMMARY | 2025-04-06 09:16 | XMS_ITS | Encounter Summary ---
Author Organization [facility] Address [address] 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
--- OUTSIDE RECORDS SUMMARY | 2025-04-06 09:16 | XMS_ITS | Patient Health Record ---
Author Organization [facility] Address [address] [facility] [address] [place] [address] Care Team Providers Care Hunting Sales Leader Name Role Phone Cody Beckman MD Primary Care Provider UnavailHermes Ho Unavailable [phone] Dorian Smith Unavailable [phone] Tabby Casanova Unavailable [phone] Constanza Reno Unavailable [phone] Allergies Allergen (clinical drug ingredient) Drug/Non Drug Allergy documented on EMR Reaction Allergy Type Onset Date Status Non-steroidal anti-inflammatory agent (FN) NSAIDS (Non-Steroidal Anti-Inflammatory Drug) (uncoded) Unknown Allergy 10/29/2023 active apixaban Eliquis hives Drug Allergy Active codeine Codeine nausea and vomiting Drug Allergy Active heparin Heparin Unknown Drug Allergy Active Non-steroidal anti-inflammatory agent (FN) NSAIDs Unknown Drug Allergy Active Results Component Value Reference Range Flag Notes Basic Metabolic Panel (BMP) 97838 Reviewed date:03/29/2025 08:11:20 AM Interpretation: Performing Lab: Notes/Report: Sodium 143 136-145 MMOL/L Potassium 3.9 3.5-5.1 MMOL/L Chloride 105 98-107 MMOL/L CO2 27.9 20.0-31.0 MMOL/L Glucose Serum 102 71-110 MG/DL Testing p erformed at [facility], [address] [place] [address] [place] [address]. CLIA ID#: [id number] BUN 29 7-21 MG/DL HI Creat 1.62 .51-1.17 MG/DL HI C-xnwedl-l-benzoquin one imine (NAPQI) is a metabolite of acetaminophen, NAPQI concentrations of apparoximately 10 mg/L correlation to toxic levels of acetaminophen demonstrates a greater than or equil to 10% change in results. NAPQI concentrations greater than this may lead to falsely depressed results for patient samples. Use of this assay is not recommended for patients undergoing treatment with phenindione, due to the potential for falsely depressed results. GFR 34.8 NA Calculation pe rformed from GFR calculator provided by the [employer]. Glomerular Filtration rate(GRF) is the best overall index of kidney function. Normal GFR varies according to age,sex, body size, and declines with age. The National Kid[employer] Foundation recommends using the CKD-EPI Creatinine Equation(2020) to estimate GFR. Anion Gap 14 5-15 BUN/Creat Ratio 17.9 12.0-20.0 % Calcium 9.3 8.7-10.4 MG/DL Osmo Serum,Calculated 302 280-300 MOSM/KG HI Basic Metabolic Panel (BMP) 15670 (Not yet reviewed by provider) Interpretation: Performing Lab: Notes/Report: Potassium (B) 43014 Reviewed date:03/25/2025 07:31:51 PM Interpretation: Performing Lab: Notes/Report: Potassium 4.2 3.5-5.1 MMOL/L CBC Reflex Man Diff 03496, 8 5007 Reviewed date:03/29/2025 08:11:20 AM Interpretation: Performing Lab: Notes/Report: WBC 6.1 4.5-11.0 X10'3 RBC 4.28 4.00-5.20 X10'6 Hgb 9.0 12.0-16.0 G/DL LOW Hct 32.4 36.0-46.0 % LOW MCV 75.7 80.0-100.0 FL LOW MCH 21.0 27.0-31.0 PG LOW MCHC 27.8 31.0-37.0 G/DL LOW Platelet 189 150-400 X10'3 RDW-SD 45.9 35.0-49.0 FL RDW-CV 17.2 12.2-15.6 % HI MPV 11.6 9.2-12.0 FL Review Morph/Scan Cardiac Echo Transesophageal [id number] Reviewed date:03/31/2025 04:31:49 PM Interpretation: Performing Lab: Notes/Report: Cardiopulmonary Services Name: JUAN FERNÁNDEZ Study Date: 03/25/2025 : 1960 Patient Location: CCU Age: 64 yrs Gender: Female Height: 68 in Weight: 380 lb BSA: 2.7 m2 Reason For Study: ATRIAL FLUTTER BY ECG CAD ABNORMAL STRESS TEST VENOUS EMBOLISM ESSENTIAL HYPERTENSION ASCENDING AORTA DILATION MORBID OBESITY MCC USE OF ANTITHROMBOTICS/ANTIPLATELETS Interpretation Summary PROCEDURE: Transesophageal echocardiogram and cardioversion INDICATIONS: The patient is 64 yo F with paroxysmal afib/aflutter refractory to medical therapy, thus transesophageal echocardiogram was performed. CONSCIOUS SEDATION: Fentanyl 100 mcg IV and Versed 1.5 mg IV. DESCRIPTION OF PROCEDURE: The risks and benefits of the procedure and sedation were explained to the patient. Informed consent was obtained. The patient was placed on O2 support and monitored via cardiac monitoring during the entire procedure. The patient lidocaine. The transesophageal probe was passed into the esophagus without difficulty. Multiplanar views of the heart were obtained. The probe was removed from the patient Cardioversion was performed at 120J then the patient went into junctional bradycardia HR 30-40s for which atropine was given. The patient were monitored throughout the entire procedure and remained stable. No immediate procedure related complication noted. FINDINGS: 1. Right atrium: Grossly normal in size. 2. Right ventricle: Right ventricular size and systolic function appeared grossly normal. 3. Left atrium: The chamber size appeared grossly normal. -The left atrial appendage was well visualized and was found to be free of thrombus. 4. Left ventricle: The left ventricular ejection fraction is grossly normal 5. Intra-atrial septum: Appeared normal with no evidence of PFO channel, limbus, or aneurysm. 6. Mitral valve: The mitral valve appeared normal in structure. -moderate mitral regurgitation. 7. Aortic valve: The aortic valve was trileaflet in nature with mild calcification. -trace aortic regurgitation. 8. Tricuspid valve: The tricuspid valve appeared normal in structure. -mild regurgitation. 9. Pulmonic valve: trace regurgitation was seen. 10. Aorta: No significant atheroma or plaques visualized. CONCLUSION: 1. Grossly normal left ventricular function. 2. Moderate MR 3. NICOLE was free from thrombus 4. Successful JENS and cardioversion, due to bradycardia, will hold her metorpolol and will observed over night with atropine ready Ordering Physician: Hermes Monson Referring Physician: Hermes Monson Performed By: Sheryl Shaffer RCS Cardiac Echo Transesophageal [id number] Reviewed date:03/29/2025 08:11:27 AM Interpretation: Performing Lab: Notes/Report: [id number]&org=[email or web address] Glucometer WBG--[id number] Reviewed date:03/29/2025 08:11:27 AM Interpretation: Performing Lab: Notes/Report: Glucometer WBG 103 65-110 MG/DL Meter: [id number]~Supervisor [employer]: [id number] MARCELL NATACHA Glucometer WBG--[id number] Reviewed date:03/25/2025 07:31:42 PM Interpretation: Performing Lab: Notes/Report: Glucometer WBG 67 65-110 MG/DL Asymptom atic~Meter: [id number]~Supervisor [employer]: [id number] FABIOLA ANDERSON Glucometer WBG--[id number] Reviewed date:03/29/2025 08:11:20 AM Interpretation: Performing Lab: Notes/Report: Glucometer WBG 88 65-110 MG/DL Meter: [id number]~Supervisor [employer]: [id number] MARCELL NATACHA WBC Auto Diff--[id number] Reviewed date:03/29/2025 08:11:20 AM Interpretation: Performing Lab: Notes/Report: Added by Discern Rules Neutro Auto% 69.2 40.0-70.0 % Lymph Auto% 20.1 22.0-44.0 % LOW Holt Auto% 8.2 3.0-7.0 % HI Eos Auto% 1.5 2.0-4.0 % LOW Baso Auto% 0.7 0.0-1.0 % NRBC% .00 .00-.20 /100 intact WBC's Neutro Abs 4.25 .80-7.70 Absolute Neutrophil Count 4250 NA Lymph Abs 1.23 .10-4.10 Holt Abs .50 .20-1.00 Eos Abs .09 .00-.40 Baso Abs .04 .00-.20 NRBC# .00 .00-.20 X10'3 Imm Gran Abs .02 .00-.10 Imm Gran% .3 .0-.4 % Scan--[id number] Reviewed date:03/29/2025 08:11:20 AM Interpretation: Performing Lab: Notes/Report: Scan ordered by Discern Expert Rules system. PLT Appear Adequate Aniso Slight Poik Slight Elliptocytes Occasional Hypochrom Slight Microcytosis Slight Polychrom Few Stomatocytes Occasional Target Cell Occasional Electrocardiogram (EKG) - 93 000 Reviewed date:02/02/2025 04:52:58 PM Interpretation: Performing Lab: Notes/Report: Electrocardiogram (EKG) - 93 000 Reviewed date:03/03/2025 04:57:25 PM Interpretation: Performing Lab: Notes/Report: CT Cardiac Scoring Diagnosti [id number] Reviewed date:01/26/2025 01:36:04 PM Interpretation: Performing Lab: Notes/Report: See Below For Report CT Cardiac Scoring Diagnostic Diagnosis Description: Essential (primary) hypertension Read See Below For Report CT Cardiac Scoring Diagnosti [id number] Reviewed date:01/25/2025 04:50:13 PM Interpretation: Performing Lab: Notes/Report: [id number]&org=[email or web address] zzzCT Cardiac Scoring Diagno stic RAD Reviewed date:01/26/2025 01:36:04 PM Interpretation: Performing Lab: Notes/Report: See Below For Report CT Cardiac Scoring Diagnostic RAD Read See Below For Report zzzCT Cardiac Scoring Diagno stic RAD Reviewed date:01/25/2025 04:50:13 PM Interpretation: Performing Lab: Notes/Report: [id number] Schedule Confirmation Reviewed date:03/25/2025 07:31:51 PM Interpretation: Performing Lab: Notes/Report: Cardiac Echo Transesophageal EC Schedule Confirmation Reviewed date:03/04/2025 01:07:37 PM Interpretation: Performing Lab: Notes/Report: Cardiac Echo Transesophageal EC Schedule Confirmation Reviewed date:01/25/2025 04:50:13 PM Interpretation: Performing Lab: Notes/Report: CT Cardiac Scoring Diagnostic RAD Schedule Confirmation Reviewed date:12/31/2024 12:39:18 PM Interpretation: Performing Lab: Notes/Report: CT Cardiac Scoring Diagnostic RAD Schedule Confirmation Reviewed date:12/31/2024 12:39:49 PM Interpretation: Performing Lab: Notes/Report: CT Cardiac Scoring Diagnostic RAD Schedule Confirmation Reviewed date:11/04/2024 04:10:45 PM Interpretation: Performing Lab: Notes/Report: CT Cardiac Scoring Diagnostic RAD Schedule Confirmation Reviewed date:10/22/2024 04:22:46 PM Interpretation: Performing Lab: Notes/Report: CT Cardiac Scoring Diagnostic Schedule Confirmation Reviewed date:09/28/2024 08:41:55 AM Interpretation: Performing Lab: Notes/Report: CT Cardiac Scoring Diagnostic Reason For Referral Reason Post ECV Diagnosis 1 Atrial flutter by el ectrocardiogram (I48.92) Referral Organization [employer] [facility] Referring Provider First Name Hermes Referring Provider Last Name Ermias Referring Provider Speciality Cardiology Referred Provider Bry Gunn MD Referred Provider Specialty Cardiac Elec trophysiology Referral Priority Routine Medications Medication SIG (Take, Route, Frequency, Duration) Notes Start Date End Date Status Furosemide 20 MG Tablet TAKE 1 TABLET BY MOUTH ONCE DAILY NEEDED FOR SWELLING; Duration: 30 Active Allopurinol 300 MG Tablet Take 1 tablet by mouth once daily; Duration: 30 Active Metoprolol Tartrate 50 MG Tablet 1 tab Orally Twice a day; Duration: 30 days Active Potassium Citrate ER 15 MEQ (1620 MG) Tablet Extended Release TAKE 1 TABLET BY MOUTH TWICE DAILY Oral; Duration: 30 Days Active Cyclobenzaprine HCl 10 MG Tablet Take 1 tablet by mouth three times daily as needed for muscle spasm; Duration: 30 Active traMADol HCl 50 MG Tablet TAKE 1 TABLET BY MOUTH EVERY 4 HOURS NEEDED FOR SEVERE PAIN; Duration: 10 05/17/2023 Active ALPRAZolam 0.5 MG Tablet TAKE 1/2 TO 1 ( ONE-HALF TO ONE) TABLET BY MOUTH TWICE DAILY NEEDED FOR ANXIETY FOR 30 DAYS; Duration: 30 05/17/2023 Active Xarelto 20 MG Tablet 1 tablet with food Orally Once a day Active Social History Tobacco Use: Social History Observation Description Date Details (start date - stop date) Never Smoker NA - NA Social History Drugs/Alcohol: Social Info Question Answer Notes Caffeine Intake: occasional, but not on a daily basis Tobacco Use: Social Info Question Answer Notes xTobacco Use/Smoking Are you a nonsmoker Additional Details Category Social Info Options Details Drugs/Alcohol: Do you drink alcohol? No Migrated Social History Migrated Social History Smoking Status : Never used tobacco , History of tobacco use : Section Notes: 07/19/2022 PHQ-9 Depression screen completed 02/19/2023 score 0 Depression screen completed 02/19/2023 score 0 Depression screen completed 02/19/2023 score 0 Depression screen completed 02/19/2023 score 0 Depression screen completed 02/19/2023 score 0 Depression screen completed 02/19/2023 score 0 Depression screen completed 02/19/2023 score 0 Depression screen completed 02/19/2023 score 0 Depression screen completed 02/19/2023 score 0 Problems Problem Type SNOMED Code ICD Code Onset Dates Problem Status W/U Status Risk Notes Problem Paroxysmal atrial fibrillation (075993953) Paroxysmal atrial fibrillation (I48.0) Active confirmed Problem Calculus of kidney with calculus of ureter (298193541) Calculus of kidney with calculus of ureter (N20.2) Active confirmed Problem Gross hematuria (572945397) Gross hematuria (R31.0) Active confirmed Problem Localized edema (2748657) Localized edema (R60.0) Active confirmed Problem Long-term current use of antithrombotic (378951552739961) 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 antithrombotics/anti platelets (Z79.02) Active confirmed Problem Essential hypertension (38497171) Essential hypertension (I10) Active confirmed Problem Anxiety (23031441) Anxiety (F41.9) Active confirmed Problem Exacerbation of moderate persistent asthma (disorder) (759478060) Moderate persistent asthmatic bronchitis with acute exacerbation (J45.41) Active confirmed Problem Neuropathic pain (727787939) Neuropathic pain (M79.2) Active confirmed Problem Knee pain (1614597980) Knee pain (M25.569) Active confirmed Problem Herpes zoster wi th complication (B02.8) Active confirmed Problem Preoperative cardiovascular examination (024715577) Pre-operative cardiovascular examination (Z01.810) Active confirmed Problem Back pain (952267784) Back pain (M54.9) Active confirmed Problem Cardiovascular stress test abnormal (530859147) Abnormal stress test (R94.39) Active confirmed Problem Body mass index 40+ - morbidly obese (762118265) BMI 60.0-69.9, adult (Z68.44) Active confirmed Problem History of urinary tract infection (7431093358111) History of UTI (Z87.440) Active confirmed Problem Kidney stone (53437704) Kidney stone (N20.0) Active confirmed Problem Chronic gouty arthritis (10599292) Chronic gout of multiple sites, unspecified cause (M1A.09X0) Active confirmed Problem Acquired hypothyroidism (849047769) Acquired hypothyroidism (E03.9) Active confirmed Problem Kidney stone (32116338) Kidney calculi (N20.0) Active confirmed Problem Obesity (212639151) Obesity (E66.9) Active confirmed Problem Coronary artery disease (59321849) CAD (coronary artery disease) (I25.10) Active confirmed Problem Morbid obesity (637141557) Morbid obesity (E66.01) Active confirmed Problem Ascending aorta dilatation (998523205) Ascending aorta dilatation (I77.810) Active confirmed Problem COVID-19 (904980342) COVID-19 (U07.1) Active confirmed Problem Atrial flutter (3955248) Atrial flutter by electrocardiogram (I48.92) Active confirmed Problem Body mass index 30+ - obesity (finding) (072411439) Body mass index [BMI] 60.0-69.9, adult (Z68.44) Active confirmed Problem Primary hypertension (86096854) Primary hypertension (I10) Active confirmed Problem Chronic wwyp-NXHCX-07 syndrome (disorder) (0067841325) Long COVID (U09.9) Active confirmed Problem Venous embolism (962435841) Venous embolism (I82.90) Active confirmed Problem Primary osteoarthritis (070097087) Primary osteoarthritis involving multiple joints (M15.9) Active confirmed Problem Mitral valve disorder (47690460) Moderate mitral insufficiency (I34.0) Active confirmed Vital Signs Heart Rate 44 /min 03/03/2025 Temperature 98.4 degrees Fahrenheit 05/26/2024 Oximetry 96 % 03/03/2025 Blood pressure diastolic 84 mm Hg 03/03/2025 Height-cm 172.72 cm 03/03/2025 Weight-kg 174.18 kg 03/03/2025 Height 68 in 03/03/2025 Blood pressure systolic 138 mm Hg 03/03/2025 Weight 384 lbs 03/03/2025 BMI 58.38 kg/m2 03/03/2025 Procedures Procedure Date Ordered Date Performed Result Body Sit e Electrical Cardioversion 03/03/2025 03/04/2025 N/A Encounters Encounter Location Date Provider Diagnosis [facility] [address] [place] [address] 03/25/2025 Hermes Monson [facility] [address] [place] [address] 05/04/2024 Hermes Monson Abnormal stress test R94.39 ; Kidney calculi N20.0 ; Atrial flutter by electrocardiogram I48.92 ; Venous embolism I82.90 ; Essential hypertension I10 ; Morbid obesity E66.01 ; BMI 60.0-69.9, adult Z68.44 and 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 antithrombotics/antipla telets Z79.02 [facility] [address] [place] [address], [place] [address] 05/26/2024 Tabby Casanova Kidney calculi N20.0 ; Gross hematuria R31.0 and History of UTI Z87.[address] [place] [address] 10/13/2024 Hermes Monson Kidney calculi N20.0 ; Pre-operative cardiovascular examination Z01.810 ; Abnormal stress test R94.39 ; Atrial flutter by electrocardiogram I48.92 ; Venous embolism I82.90 ; Essential hypertension I10 ; Morbid obesity E66.01 ; BMI 60.0-69.9, adult Z68.44 and [facility]PC (current) use of antithrombotics/antipla telets Z79.02 [facility] [address] [place] [address], [place] [address] 02/01/2025 Hermes Monson Abnormal stress test R94.39 ; CAD (coronary artery disease) I25.10 ; Atrial flutter by electrocardiogram I48.92 ; Venous embolism I82.90 ; Essential hypertension I10 ; Ascending aorta dilatation I77.810 ; Morbid obesity E66.01 ; BMI 60.0-69.9, adult Z68.44 and FPC (current) use of antithrombotics/antipla telets Z79.02 [facility] [address] [place] [address], [place] [address] 03/03/2025 Hermes Monson CAD (coronary artery disease) I25.10 ; Atrial flutter by electrocardiogram I48.92 ; Abnormal stress test R94.39 ; Venous embolism I82.90 ; Essential hypertension I10 ; Ascending aorta dilatation I77.810 ; Morbid obesity E66.01 ; BMI 60.0-69.9, adult Z68.44 and FPC (current) use of antithrombotics/antipla telets Z79.02 [facility] [address] [place] [address], [place] [address] 04/02/2025 Constanza Rowdy [facility] [address] [place] [address], [place] [address] 04/05/2025 Bobakrosy Knightshi [facility] [address] [place] [address] [address] [place] [address] 05/26/2024 Dorian Smith Kidney calculi N20.0 and Gross hematuria R31.0 [facility] [address] [place] [address] [place] [address], [place] [address] 07/24/2024 Dorian Smith [facility] [address] [place] [address], [place] [address] 08/21/2024 [facility] [address] [place] [address], [place] [address] 09/23/2024 Hermes Monson Essential hypertension I10 ; Morbid obesity E66.01 and Atrial flutter by electrocardiogram I48.92 [facility] [address] [place] [address], [place] [address] 09/24/2024 Hermes Knightshi [facility] [address] [place] [address], [place] [address] 10/13/2024 Hermes Knightshi [facility] [address] [place] [address], [place] [address] 10/13/2024 [facility] [address] [place] [address], [place] [address] 12/28/2024 Bobakrosy Knightshi [facility] [address] [place] [address], [place] [address] 12/29/2024 Kainrosy Ermias Abnormal stress test R94.39 ; Primary hypertension I10 ; Morbid obesity E66.01 and Atrial flutter by electrocardiogram I48.92 [facility] [address] [place] [address], [place] [address] 01/26/2025 Kainrosy Ermias [facility] [address] [place] [address], [place] [address] 03/01/2025 Hermes Daigleayashi [facility] [address] [place] [address], [place] [address] 03/03/2025 Bobmichellrosy Ermias [facility] [address] [place] [address], [place] [address] 03/03/2025 Bobakrosy Ermias [facility] [address] [place] [address], [place] [address] 03/26/2025 Kainrosy Ermias Atrial flutter by electrocardiogram I48.92 [facility] [address] [place] [address], [place] [address] 03/29/2025 Kainrosy Ermias Morbid obesity E66.01 and Kidney calculi N20.0 [facility] [address] [place] [address], [place] [address] 04/02/2025 Hermes Monson Assessments Encounter Date Diagnosis (ICD Code) Assessment Notes Treatment Notes Treatment Clinical Notes Section Notes 05/04/2024 Abnormal stress test (ICD-10 - R94.39) This is not high risk finding. Continue to monitor. Denies any angina. Obtain CT calcium score EKG in office today indication is a flutter finding a flutter with average heart rate of 67 05/04/2024 Kidney calculi (ICD-10 - N20.0) Potential procedure was Dr. Smith later on for the right kidney stone removal. EKG in office today indication is a flutter finding a flutter with average heart rate of 67 05/26/2024 Kidney calculi (ICD-10 - N20.0) *Kidney stones Symptoms Severe pain in the side and back, below the ribs. Pain that radiates to the lower abdomen and groin. Pain during urination [place], red, or brown urine. Nausea and Vomiting Frequent urination or persistent urge to urinate. Causes and Risk Factors Dehydration: Not drinking enough water can lead to concentrated urine, increasing the risk of stone formation. Diet: High intake of salt, protein, and sugar can increase the risk. Family History: A family history of kidney stones can increase the likelihood of developing them. Medical Conditions: Conditions like hyperparathyroidi sm, gout, and certain urinary tract infections can contribute to stone formation. Treatment Options Hydration: Encourage patients to drink plenty of water to help pass the stone. Pain Management: Uaqf-xxa-tmapags pain relievers like ibuprofen or acetaminophen. Medications: Alpha blockers can help relax the muscles in the ureter to facilitate stone passage. Medical Procedures: Extracorporeal Shock Wave Lithotripsy (ESWL): Uses sound waves to break stones into smaller pieces. Ureteroscopy: A thin scope is inserted through the urethra and bladder to remove or break up the stone. Percutaneous Nephrolithotomy: Surgical removal of large stones through a small incision in the back. Prevention Tips Hydration: Drink at least 2-3 liters of water daily. Dietary Changes: Reduce salt, protein, and oxalate-rich foods (e.g., spinach, nuts). Medications: For those with recurrent stones, medications may be prescribed to prevent new stones from forming. Regular Monitoring: Follow-up with healthcare providers for regular check-ups and urine tests. When to Seek Immediate Medical Attention Severe pain that makes it difficult to sit still or find a comfortable position. Pain accompanied by nausea and vomiting. Fever and chills, which may indicate an infection. 05/26/2024 Gross hematuria (ICD-10 - R31.0) *Hematuria Causes Urinary Tract Infections (UTIs): Infections in the bladder or kidneys. Kidney Stones: Hard deposits that form in the kidneys and can cause bleeding. Trauma: Injury to the kidneys or bladder. Glomerulonephriti s: Inflammation of the kidney's filtering units. Malignancies: Bladder, kidney, or prostate cancer. Medications: Certain drugs like anticoagulants can cause hematuria. Benign Prostatic Hyperplasia (BPH): Enlarged prostate in men. Symptoms Gross Hematuria: [place], red, or cola-colored urine. Microscopic Hematuria: Usually asymptomatic and detected during routine urine tests. Associated Symptoms: Painful urination, frequent urination, abdominal pain, or back pain. Diagnosis Urinalysis: To detect the presence of red blood cells. Imaging Studies: Ultrasound, CT scan, or MRI to visualize the urinary tract. Cystoscopy: A procedure to look inside the bladder and urethra. Blood Tests: To check kidney function and other related parameters. Treatment Underlying Cause: Treatment depends on the underlying cause of hematuria. UTIs: Antibiotics. Kidney Stones: Pain management, hydration, and sometimes surgical intervention. Glomerulonephriti s: Medications to control inflammation. Cancer: Surgical, medical, or radiation therapy. Symptomatic Relief: Pain management and hydration. Prevention and Management Hydration: Drink plenty of fluids to help flush the urinary system. Avoid Certain Medications: If advised by a healthcare provider. Regular Check-Ups: Especially if you have a history of kidney stones, UTIs, or other risk factors. Healthy Lifestyle: Maintain a balanced diet and avoid smoking to reduce the risk of malignancies. When to Seek Medical Attention Visible blood in the urine. Persistent or recurrent hematuria. Associated symptoms like severe pain, fever, or weight loss. Any new or worsening symptoms. 09/23/2024 Essential hypertension (ICD-10 - I10) 09/23/2024 Morbid obesity (ICD-10 - E66.01) 10/13/2024 Kidney calculi (ICD-10 - N20.0) Follow-up with urologist EKG in office today indication is preop kidney stones history of a flutter finding are baseline is a flutter with average heart rate of 80 10/13/2024 Pre-operative cardiovascular examination (ICD-10 - Z01.810) As far as preop standpoint, the patient has been seen by a new urologist at the [facility] Dr. Espinal. She is having another surgery on October 23 for removal of her kidney stones. The patient denied any chest pain pressure. She had a stress test in 2023 which showed small area of ischemia which is not high risk finding. Echo showed preserved ejection fraction. Proceeded to have kidney stone removal. No contraindication. May stop her systemic anticoagulation for A-fib 3 days prior. EKG in office today indication is preop kidney stones history of a flutter finding are baseline is a flutter with average heart rate of 80 12/29/2024 Abnormal stress test (ICD-10 - R94.39) 12/29/2024 Primary hypertension (ICD-10 - I10) 02/01/2025 Abnormal stress test (ICD-10 - R94.39) This is not high risk finding. Continue to monitor. Denies any angina. EKG in office today indication is CAD abnormal stress test history of A-fib a flutter on Xarelto finding a flutter with average heart rate of 94 05/26/2024 Kidney calculi (ICD-10 - N20.0) 02/01/2025 CAD (coronary artery disease) (ICD-10 - I25.10) CAD based of the most recent coronary calcium score. Which is a low risk finding. Continue to monitor. EKG in office today indication is CAD abnormal stress test history of A-fib a flutter on Xarelto finding a flutter with average heart rate of 94 03/03/2025 CAD (coronary artery disease) (ICD-10 - I25.10) CAD based of the most recent coronary calcium score. Which is a low risk finding. Continue to monitor. EKG in office today indication is CAD abnormal stress test history of A-fib a flutter on Xarelto finding a flutter with average heart rate of 44 03/03/2025 Atrial flutter by electrocardiogram (ICD-10 - I48.92) Continue rivaroxaban for anticoagulation. Continue metoprolol 50 mg twice a day She was not able to tolerate amiodarone due to bradycardia Talked about risk and benefits of JENS cardioversion as there is no more plan for procedure from urology standpoint. Included but not limited to bleeding GI complication perforation CVA [place] . Stop amiodarone Set up for JENS cardioversion next available EKG in office today indication is CAD abnormal stress test history of A-fib a flutter on Xarelto finding a flutter with average heart rate of 44 03/26/2025 Atrial flutter by electrocardiogram (ICD-10 - I48.92) 03/29/2025 Morbid obesity (ICD-10 - E66.01) 03/29/2025 Kidney calculi (ICD-10 - N20.0) 03/03/2025 Abnormal stress test (ICD-10 - R94.39) This is not high risk finding. Continue to monitor. Denies any angina. EKG in office today indication is CAD abnormal stress test history of A-fib a flutter on Xarelto finding a flutter with average heart rate of 44 05/26/2024 Gross hematuria (ICD-10 - R31.0) 02/01/2025 Atrial flutter by electrocardiogram (ICD-10 - I48.92) Continue rivaroxaban for anticoagulation. Continue metoprolol 50 mg twice a day Start amiodarone 200 mg twice a day Patient will follow-up with his urologist next week or so As long as there is no plan for urology procedure then we will consider JENS cardioversion as a next step. Follow-up in 4 weeks with repeat EKG EKG in office today indication is CAD abnormal stress test history of A-fib a flutter on Xarelto finding a flutter with average heart rate of 94 12/29/2024 Morbid obesity (ICD-10 - E66.01) 09/23/2024 Atrial flutter by electrocardiogram (ICD-10 - I48.92) 10/13/2024 Abnormal stress test (ICD-10 - R94.39) This is not high risk finding. Continue to monitor. Denies any angina. EKG in office today indication is preop kidney stones history of a flutter finding are baseline is a flutter with average heart rate of 80 05/26/2024 History of UTI (ICD-10 - Z87.440) Understanding UTIs Definition: A UTI is an infection in any part of the urinary system, including kidneys, ureters, bladder, and urethra. Symptoms: Common symptoms include a strong, persistent urge to urinate, a burning sensation when urinating, cloudy or strong-smelling urine, and pelvic pain. Prevention Tips Hydration: Drink plenty of fluids, especially water, to help flush out bacteria. Hygiene: (Females) Wiping from front to back to prevent bacteria from the anal region from spreading to the urethra. Urination Habits: Recommend urinating frequently and not holding urine for long periods. Urinating after sexual intercourse can also help clear bacteria. Clothing: We suggest wearing loose-fitting clothing and cotton underwear to keep the area dry and reduce bacterial growth. When to Seek Medical Attention If symptoms persist for more than a couple of days. If there is fever,chills, back pain, altered mental status, or blood in the urine If the patient is , has diabetes, or is immunocompromised . Treatment Antibiotics: Antibiotics are the primary treatment for UTIs. It is important to complete the full course of antibiotics even if symptoms improve. Pain Relief: Whpt-[id number]-[id number] pain relievers like Ibuprofen (unless contraindicated) or acetaminophen can help manage discomfort. 05/04/2024 Atrial flutter by electrocardiogram (ICD-10 - I48.92) EKG showed a flutter. Continue rivaroxaban. Heart rate is well-controlled. Continue metoprolol EKG in office today indication is a flutter finding a flutter with average heart rate of 67 05/04/2024 Venous embolism (ICD-10 - I82.90) Study of DVT and PE back in May 2023 after having COVID infection in April 2023. EKG in office today indication is a flutter finding a flutter with average heart rate of 67 12/29/2024 Atrial flutter by electrocardiogram (ICD-10 - I48.92) 10/13/2024 Atrial flutter by electrocardiogram (ICD-10 - I48.92) Continue rivaroxaban for anticoagulation. Continue metoprolol Patient is still in flutter with heart rate of 80 which is rate controlled EKG in office today indication is preop kidney stones history of a flutter finding are baseline is a flutter with average heart rate of 80 02/01/2025 Venous embolism (ICD-10 - I82.90) Episode of DVT and PE back in May 2023 after having COVID infection in April 2023. EKG in office today indication is CAD abnormal stress test history of A-fib a flutter on Xarelto finding a flutter with average heart rate of 94 03/03/2025 Venous embolism (ICD-10 - I82.90) Episode of DVT and PE back in May 2023 after having COVID infection in April 2023. EKG in office today indication is CAD abnormal stress test history of A-fib a flutter on Xarelto finding a flutter with average heart rate of 44 03/03/2025 Essential hypertension (ICD-10 - I10) EKG in office today indication is CAD abnormal stress test history of A-fib a flutter on Xarelto finding a flutter with average heart rate of 44 02/01/2025 Essential hypertension (ICD-10 - I10) EKG in office today indication is CAD abnormal stress test history of A-fib a flutter on Xarelto finding a flutter with average heart rate of 94 10/13/2024 Venous embolism (ICD-10 - I82.90) Episode of DVT and PE back in May 2023 after having COVID infection in April 2023. EKG in office today indication is preop kidney stones history of a flutter finding are baseline is a flutter with average heart rate of 80 05/04/2024 Essential hypertension (ICD-10 - I10) Pressure at goal. Follow-up in 4 months. EKG in office today indication is a flutter finding a flutter with average heart rate of 67 05/04/2024 Morbid obesity (ICD-10 - E66.01) EKG in office today indication is a flutter finding a flutter with average heart rate of 67 10/13/2024 Essential hypertension (ICD-10 - I10) Blood pressure today is 130/80 EKG in office today indication is preop kidney stones history of a flutter finding are baseline is a flutter with average heart rate of 80 02/01/2025 Ascending aorta dilatation (ICD-10 - I77.810) EKG in office today indication is CAD abnormal stress test history of A-fib a flutter on Xarelto finding a flutter with average heart rate of 94 03/03/2025 Ascending aorta dilatation (ICD-10 - I77.810) EKG in office today indication is CAD abnormal stress test history of A-fib a flutter on Xarelto finding a flutter with average heart rate of 44 03/03/2025 Morbid obesity (ICD-10 - E66.01) EKG in office today indication is CAD abnormal stress test history of A-fib a flutter on Xarelto finding a flutter with average heart rate of 44 02/01/2025 Morbid obesity (ICD-10 - E66.01) EKG in office today indication is CAD abnormal stress test history of A-fib a flutter on Xarelto finding a flutter with average heart rate of 94 10/13/2024 Morbid obesity (ICD-10 - E66.01) EKG in office today indication is preop kidney stones history of a flutter finding are baseline is a flutter with average heart rate of 80 05/04/2024 BMI 60.0-69.9, adult (ICD-10 - Z68.44) EKG in office today indication is a flutter finding a flutter with average heart rate of 67 05/04/2024 FPC (current) use of antithrombotics/anti platelets (ICD-10 - Z79.02) EKG in office today indication is a flutter finding a flutter with average heart rate of 67 10/13/2024 BMI 60.0-69.9, adult (ICD-10 - Z68.44) EKG in office today indication is preop kidney stones history of a flutter finding are baseline is a flutter with average heart rate of 80 02/01/2025 BMI 60.0-69.9, adult (ICD-10 - Z68.44) EKG in office today indication is CAD abnormal stress test history of A-fib a flutter on Xarelto finding a flutter with average heart rate of 94 03/03/2025 BMI 60.0-69.9, adult (ICD-10 - Z68.44) EKG in office today indication is CAD abnormal stress test history of A-fib a flutter on Xarelto finding a flutter with average heart rate of 44 03/03/2025 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 antithrombotics/anti platelets (ICD-10 - Z79.02) EKG in office today indication is CAD abnormal stress test history of A-fib a flutter on Xarelto finding a flutter with average heart rate of 44 02/01/2025 FPC (current) use of antithrombotics/anti platelets (ICD-10 - Z79.02) EKG in office today indication is CAD abnormal stress test history of A-fib a flutter on Xarelto finding a flutter with average heart rate of 94 10/13/2024 FPC (current) use of antithrombotics/anti platelets (ICD-10 - Z79.02) EKG in office today indication is preop kidney stones history of a flutter finding are baseline is a flutter with average heart rate of 80 10/13/2024 Other Sarah Ashraf, am scribing for Hermes Monson MD. Hermes Ashraf MD, personally performed the services prescribed in this documentatio n, as scribed by Sarah Saravia and it is both accurate and complete. EKG in office today indication is preop kidney stones history of a flutter finding are baseline is a flutter with average heart rate of 80 02/01/2025 Other Sarah Ashraf, juan scribing for Hermes Monson MD. Hermes Ashraf MD, personally performed the services prescribed in this documentatio n, as scribed by Sarah Saravia and it is both accurate and complete. EKG in office today indication is CAD abnormal stress test history of A-fib a flutter on Xarelto finding a flutter with average heart rate of 94 03/03/2025 Other Sarah Ashraf, am scribing for Hermes Monson MD. Hermes Ashraf MD, personally performed the services prescribed in this documentatio n, as scribed by Sarah Saravia and it is both accurate and complete. EKG in office today indication is CAD abnormal stress test history of A-fib a flutter on Xarelto finding a flutter with average heart rate of 44 Plan Of Treatment Pending Test Test Name Order Date Basic Metabolic Panel (BMP) 02807 2024 Basic Metabolic Panel (BMP) 77052 2024 Electrocardiogram 12 Lead Tracing-[id number] 03/03/2025 Stress, Lexiscan Cardiolite-20312 2023 Electrocardiogram (EKG) - 32497 01/02/20 24 Electrocardiogram (EKG) - 62507 05/04/20 24 Electrocardiogram (EKG) - 37016 10/14/[address] Cardiac Scoring Diagnostic-[id number] 04/21 Future Test Test Name Order Date US Renal w/bladder-[id number] 07/22/2024 Abdomen AP-[id number] 07/22/2024 Next Appt Details Provider Name:Hermes Knight chad, 04/26/2025 10:15:00 AM, [address], [address], Insurance Providers Payer Name Payer Address Payer Phone Subscriber Number Group Number Insured Name Patient Relationship to Insured Coverage Start Date Coverage End Date [place] [address] [employer] [phone] [id number] Juan Fernández Self - patient is the insured [employer] [address] [address] [place] [address] [id number] Juan Fernández Self - patient is the insured Medications Administered Medication Instructions Date of Administration Dosage Notes DEPO-Medrol 06/25/2022 40 mg ndc 4246-5336 -01 pt tolerated well/instructed to wait 20 min DEPO-Medrol 07/19/2022 40 mg ndc 64034-222 3-01 pt tolerated well/instructed to wait 20 min dexAMETHasone 06/25/2022 4 mg ndc 96242-8 39-30 pt tolerated well/instructed to wait 20 min dexAMETHasone 07/19/2022 4 mg ndc 95578-3 239-30 pt tolerated well/instructed to wait 20 min Medical (General) History Medical History History ICD Code kidney stones shingles covid hypertension Gout covid vaccinated w/ boosters Surgical History Surgery Date(Month/Year) left arm surgery x2 1973 hysterectomy, total with bilateral salpi evans-oophorectomy (BSO) 1996 ankle surgery right 1998 gastric sleeve 2018 cholecystectomy 2019 blood clot in lung 2 kidney stones, one stent placed 3 Kidney Stone 09/2023 [place] - for kidney stents, Dr. Espinal 2024 [facility] - right kidney blasted Dr. Espinal Hospitalization History Reason Date(Month/Year) [place] then transferred [facility] in [facility] for sepsis 09/17/24 childbirth x3 Cardio[place]. 2019
--- OUTSIDE RECORDS SUMMARY | 2025-04-06 09:16 | XMS_ITS | Encounter Summary ---
Author Organization [facility] Address [address] [place] [address] Care Team Providers Care Print And Pattern Designer Name Role Phone Terry Gtz MD Primary Care Provider [phone] Encounter Details Date Type Department Care Team (Late st Contact Info) Description 01/26/1999 Outpatient Historical [facility] Breast [facility] Reji [address] [place] [phone] Brie Watts MD NO ADDRESS ON FILE Lump or mass in breast (Primary Dx) Social History Tobacco Use Types Packs/Day Years Used Date Smoking Tobacco: Never Assessed Comments Unknown Sex and Gender Information Value Date Recorded Sex Assigned at Not on file Legal 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
--- OUTSIDE RECORDS SUMMARY | 2025-04-06 09:16 | XMS_ITS | Encounter Summary ---
Author Organization [facility] Address [address] [place] [address] Care Team Providers Care Drawing Box Tender Name Role Phone Terry Gtz MD Primary Care Provider [phone] Encounter Details Date Type Department Care Team (Latest Contact Info) Description 10/11/1999 Outpatient Historical [facility] [place] [address] [place] [phone] Dougie Hess MD NO ADDRESS ON FILE Other ovarian failure (Primary Dx) Social History Tobacco Use Types Packs/Day Years Used Date Smoking Tobacco: Never Assessed Comments Unknown Sex and Gender Information Value Date Recorded Sex Assigned at Not on file 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
--- OUTSIDE RECORDS SUMMARY | 2025-04-06 09:16 | XMS_ITS | Encounter Summary ---
Author Organization [facility] Address [address] [place] [address] Care Team Providers Care Pizza Chef Name Role Phone Terry Gtz MD Primary Care Provider [phone] Encounter Details Date Type Department Care Team (Late st Contact Info) Description 01/26/1999 Outpatient Historical [facility] [place] [address] [place] [phone] Brie Watts MD NO ADDRESS ON FILE Lump or mass in breast (Primary Dx) Social History Tobacco Use Types Packs/Day Years Used Date Smoking Tobacco: Never Assessed Comments Unknown Sex and Gender Information Value Date Recorded Sex Assigned at Not on file 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
--- OUTSIDE RECORDS SUMMARY | 2025-04-06 09:16 | XMS_ITS | Encounter Summary ---
Author Organization [facility] Address [address] [place] [address] Care Team Providers Care Mold Closer Helper Name Role Phone Terry Gtz MD Primary Care Provider [phone] Encounter Details Date Type Department Care Team (Latest Contact Info) Description 05/23/2004 Outpatient Historical [facility] [address] [place] [phone] Darren Watters MD [address] [place] [address] VAGINITIS NOS (Primary Dx) Social History Tobacco Use Types Packs/Day Years Used Date Smoking Tobacco: Never Assessed Comments Unknown Sex and Gender Information Value Date Recorded Sex Assigned at Not on file 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
--- OUTSIDE RECORDS SUMMARY | 2025-04-06 09:16 | XMS_ITS | Encounter Summary ---
Author Organization [facility] Address [address] [place] [address] Care Team Providers Care Shipping Services Sales Representative Name Role Phone Terry Gtz MD Primary Care Provider Encounter Details Date Type Department Care Team (Latest Contact Info) Description 06/07/1998 Outpatient Historical [facility] O[facility]YN-[facility] [place] [address] [place] [phone] Dougie Hess MD NO ADDRESS ON FILE Other ovarian failure (Primary Dx); Abn Pap Smear-Cervix Social History Tobacco Use Types Packs/Day Years Used Date Smoking Tobacco: Never Assessed Comments Unknown Sex and Gender Information Value Date Recorded Sex Assigned at Not on file Legal Sex Female 5:52 AM SHOE SALESPERSON Gender Identity Not on file Sexual Orientation Not on file documented as of this encounter Plan of Treatment Not on file documented as of this encounter Visit Diagnoses Diagnosis Other ovarian failure- Primary Abn Pap Smear-Cervix Abnormal Papanicolaou smear of cervix and cervical HPV documented in this encounter Care Teams Shipping Services Sales Representative Relationship Specialty Start Date End Date Terry Gtz MD [address] [place] [address] [place] [address] PCP - General Family Practice 01/12/20 documented as of this encounter
--- OUTSIDE RECORDS SUMMARY | 2025-04-06 09:16 | XMS_ITS | Encounter Summary ---
Author Organization [facility] Address [address] [place] [address] Care Team Providers Care Wheel Shop Supervisor Name Role Phone Terry Gtz MD Primary Care Provider [phone] Encounter Details Date Type Department Care Team (Latest Contact Info) Description 05/10/2004 Outpatient Historical [facility] [address] [place] [phone] Dougie Hess MD NO ADDRESS ON FILE DYSPLASIA OF VAGINA (Primary Dx) Social History Tobacco Use Types Packs/Day Years Used Date Smoking Tobacco: Never Assessed Comments Unknown Sex and Gender Information Value Date Recorded Sex Assigned at Not on file Legal 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
--- OUTSIDE RECORDS SUMMARY | 2025-04-06 09:16 | XMS_ITS | Encounter Summary ---
Author Organization [facility] Address [address] [place] [address] Care Team Providers Care Rig Manager Name Role Phone Terry Gtz MD Primary Care Provider [phone] Encounter Details Date Type Department Care Team (Latest Contact Info) Description 05/01/2006 Outpatient Historical [facility]YN[facility] [place] [address] [place] [phone] Dougie Hess MD NO ADDRESS ON FILE Other Specified Pre-Operative Examination (Primary Dx); Dysplasia of Vagina; Mild Dysplasia of Cervix Social History Tobacco Use Types Packs/Day Years Used Date Smoking Tobacco: Never Assessed Comments Unknown Sex and Gender Information Value Date Recorded Sex Assigned at Not on file Legal 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
--- OUTSIDE RECORDS SUMMARY | 2025-04-06 09:16 | XMS_ITS | Encounter Summary ---
Author Organization [facility] Address [address] [place] [address] Care Team Providers Care Toddler Guide Name Role Phone Terry Gtz MD Primary Care Provider [phone] Encounter Details Date Type Department Care Team (Latest Contact Info) Description 01/09/2006 Outpatient Historical [facility] OBGYN-Ludwig [place] [address] [place] [address] Dougie Hess MD NO ADDRESS ON FILE Mild Dysplasia of Cervix (Primary Dx) Social History Tobacco Use Types Packs/Day Years Used Date Smoking Tobacco: Never Assessed Comments Unknown Sex and Gender Information Value Date Recorded Sex Assigned at Not on file Legal 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
--- OUTSIDE RECORDS SUMMARY | 2025-04-06 09:16 | XMS_ITS | Encounter Summary ---
Author Organization [facility] Address [address] [place] [address] Care Team Providers Care Cyber Systems Operations Specialist Name Role Phone Terry Gtz MD Primary Care Provider [phone] Encounter Details Date Type Department Care Team (Latest Contact Info) Description 06/21/2000 Outpatient Historical [facility] OBGYN-Lud[place] [address] [place] [address] Dougie Hess MD NO ADDRESS ON FILE Gynecologic examination (Primary Dx); Vaginitis and vulvovaginitis, unspecified Social History Tobacco Use Types Packs/Day Years Used Date Smoking Tobacco: Never Assessed Comments Unknown Sex and Gender Information Value Date Recorded Sex Assigned at Not on file Legal Sex Female 5:52 AM SACK FILLER Gender Identity Not on file Sexual Orientation Not on file documented as of this encounter Plan of Treatment Not on file documented as of this encounter Visit Diagnoses Diagnosis Gynecologic examination- Primary Gynecological examination Vaginitis and vulvovaginitis, unspecified documented in this encounter Care Teams Cyber Systems Operations Specialist Relationship Specialty Start Date End Date Terry Gtz MD [address] [place] [address] [place] [phone] PCP - General Family Practice 01/12/20 documented as of this encounter
--- OUTSIDE RECORDS SUMMARY | 2025-04-06 09:16 | XMS_ITS | Encounter Summary ---
Author Organization [facility] Address [address] [place] [address] Care Team Providers Care Churn Tender Name Role Phone Trery Gtz MD Primary Care Provider Encounter Details Date Type Department Care Team (Latest Contact Info) Description 05/01/2006 Outpatient Historical [facility] [place] [address] [place] [phone] Dougie Hess MD NO ADDRESS ON FILE Pre-Operative Cardiovascular Examination (Primary Dx) Social History Tobacco Use Types Packs/Day Years Used Date Smoking Tobacco: Never Assessed Comments Unknown Sex and Gender Information Value Date Recorded Sex Assigned at Not on file 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 Gender Identity Not on file Sexual Orientation Not on file documented as of this encounter Plan of Treatment Not on file documented as of this encounter Procedures Procedure Name Priority Date/Time Associated Diagnosis Comments CBC WITH DIFFERENTIAL Routine 05/01/2006 12:36 PM CDT BASIC METABOLIC PANEL Routine 05/01/2006 12:36 PM CDT documented in this encounter Results * (ABNORMAL) CBC WITH DIFFERENTIAL (05/01/2006 12:36 PM CDT) WBC 5.6 4.5 - 11.0 K/ul INTERFACE SYSTEM RBC 5.17 4.20 - 5.40 Mil/ul INTERFACE SYSTEM HEMOGLOBIN 14.2 12.0 - 16.0 g/dL INTERFACE SYSTEM HEMATOCRIT 42.6 36.0 - 46.0 % INTERFACE SYSTEM MCV 82.4(L) 84.0 - 103.0 Fl INTERFACE SYSTEM MCH 27.5 27.0 - 34.0 pg INTERFACE SYSTEM MCHC 33.3 30.0 - 35.0 g/dL INTERFACE SYSTEM RDW 13.3 11.0 - 14.5 % INTERFACE SYSTEM PLATELETS 246 140 - 440 K/ul INTERFACE SYSTEM MPV 10.9 8.9 - 12.8 Fl INTERFACE SYSTEM NEUTROPHILS 45.3 42.2 - 75.2 % INTERFACE SYSTEM LYMPHOCYTES 38.3 24.0 - 44.0 % INTERFACE SYSTEM MONOCYTES 8.4 2.0 - 10.0 % INTERFACE SYSTEM EOSINOPHILS 7.1(H) 0.0 - 7.0 % INTERFACE SYSTEM BASOPHILS 0.9 0.0 - 1.0 % INTERFACE SYSTEM NEUTROPHIL ABSOLUTE 2.6 2.0 - 8.0 K/uL INTERFACE SYSTEM LYMPHOCYTE ABSOLUTE 2.2 1.2 - 4.0 K/ul INTERFACE SYSTEM MONOCYTE ABSOLUTE 0.5 0.1 - 0.6 K/ul INTERFACE SYSTEM EOSINOPHIL ABSOLUTE 0.4 0.0 - 0.7 K/ul INTERFACE SYSTEM BASOPHILS ABSOLUTE 0.1 0.0 - 0.2 K/ul INTERFACE SYSTEM 05/01/2006 12:3 6 PM CDT Dougie Hess MD HEMATOLOGY ORDERABLES Final Re sult INTERFACE SYSTEM Refer to clinic/hospital department * (ABNORMAL) BASIC METABOLIC PANEL (05/01/2006 12:36 PM CDT) GLUCOSE 95 70 - 110 mg/dL INTERFACE SYSTEM BUN 21(H) 7 - 17 mg/dL INTERFACE SYSTEM CREATININE 1.1 0.7 - 1.2 mg/dL INTERFACE SYSTEM SODIUM 143 136 - 145 mEq/L INTERFACE SYSTEM POTASSIUM 3.7 3.5 - 5.0 mEq/L INTERFACE SYSTEM CHLORIDE 107 95 - 110 mEq/L INTERFACE SYSTEM CO2 28 22 - 32 mmol/l INTERFACE SYSTEM ANION GAP 12 9 - 20 mEq/L INTERFACE SYSTEM OSMOLALITY, CALCULATED 296(H) 275 - 295 mOsm/Kg INTERFACE SYSTEM CALCIUM 9.8 8.4 - 10.5 mg/dL INTERFACE SYSTEM 05/01/2006 12:3 6 PM CDT us Dougie Hess MD CHEMISTRY ORDERABLES Final Res ult INTERFACE SYSTEM Refer to clinic/hospital department documented in this encounter Visit Diagnoses Diagnosis Pre-operative cardiovascular examination- Primary documented in this encounter Care Teams Churn Tender Relationship Specialty Start Date End Date Terry Gtz MD [address] [place] [address] [place] [phone] PCP - General Family Practice 01/12/20 documented as of this encounter
--- OUTSIDE RECORDS SUMMARY | 2025-04-06 09:16 | XMS_ITS | Encounter Summary ---
Author Organization [facility] Address [address] [place] [address] Care Team Providers Care Tax Expert Name Role Phone Terry Gtz MD Primary Care Provider [phone] Encounter Details Date Type Department Care Team (Late st Contact Info) Description 03/31/2004 Outpatient [facility] [address] [place] [address] Dougie Hess MD NO ADDRESS ON FILE Social History Tobacco Use Types Packs/Day Years Used Date Smoking Tobacco: Never Assessed Comments Unknown Sex and Gender Information Value Date Recorded Sex Assigned at Not on file 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
--- OUTSIDE RECORDS SUMMARY | 2025-04-06 09:16 | XMS_ITS | Encounter Summary ---
Author Organization [facility] Address [address] [place] [address] Care Team Providers Care Equipment Validation Specialist Name Role Phone Terry Gtz MD Primary Care Provider Encounter Details Date Type Department Care Team (Late st Contact Info) Description 01/09/2006 Outpatient [facility] [place] [address] [place] [address] Dougie Hess MD NO ADDRESS ON FILE Social History Tobacco Use Types Packs/Day Years Used Date Smoking Tobacco: Never Assessed Comments Unknown Sex and Gender Information Value Date Recorded Sex Assigned at Not on file 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
--- OUTSIDE RECORDS SUMMARY | 2025-04-06 09:16 | XMS_ITS | Encounter Summary ---
Author Organization [facility] Address [address] [place] [address] Care Team Providers Care Property Utilization Officer Name Role Phone Terry Gtz MD Primary Care Provider [phone] Reason for Referral * Outpatient Services (Routine) - Closed Specialty Diagnoses / Procedures Referred By Contac t Referred To Contact Radiology Diagnoses Other (abnormal) findings on radiological examination of breast Procedures MAMMO BREAST US LT Maria Elena Winslow APN [address] [address] Phone: tel: fax: [facility] Breast [place] [address] [facility] [address] [place] [address] Phone: tel: fax: Referral ID Status Reason Start Date Expiration Date Visits Requested Visits Authorized [id number] Closed Ordering Department To Schedule 09/23/2013 10/24/2014 1 1 WRINGER Encounter Details Date Type Department Care Team (Latest Contact Info) Description 09/23/2013 Ancillary Orders [facility] [address] [place] [address] [address] [place] [address] Maria Elena Winslow APN 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 RECOMMENDATION: Six month followup left diagnostic mammogram and ultrasound to confirm expected correlation and stability. Findings and recommendation discussed with the patient at the time of exam. Patient received the result and recommendation letter. BRENDEN/desirae - uploaded from [employer] Narrative 10/01/2013 6:04 AM CDT LEFT DIAGNOSTIC MAMMOGRAM AND BREAST ULTRASOUND: REASON FOR EXAM: Recall for area of nodularity anterior lateral left breast on CC projection on screening 09/10/2013. IMAGING PERFORMED: Left ML and rolled CC and left CC spot magnification compression views. Left breast ultrasound. COMPARISON(S): 09/10/2013 MAMMOGRAPHIC FINDINGS: LEFT BREAST: 6 mm nodular asymmetry is intermittently confirmed in the anterior lateral position, suggested to be lower outer. ULTRASOUND FINDINGS: LEFT BREAST: In the 3 o'clock position 2 cm from the nipple, a correlating 3 mm AP x 4 mm transverse x 6 mm CC hyperechoic focus with internal cystic features is seen. No posterior acoustic changes. No abnormal vascularity. Procedure Note Michelet Riuz MD - 10/01/2013 LEFT DIAGNOSTIC MAMMOGRAM AND BREAST ULTRASOUND: REASON FOR EXAM: Recall for area of nodularity anterior lateral left breast on CC projection on screening 09/10/2013. IMAGING PERFORMED: Left ML and rolled CC and left CC spot magnification compression views. Left breast ultrasound. COMPARISON(S): 09/10/2013 MAMMOGRAPHIC FINDINGS: LEFT BREAST: 6 mm nodular asymmetry is intermittently confirmed in the anterior lateral position, suggested to be lower outer. ULTRASOUND FINDINGS: LEFT BREAST: In the 3 o'clock position 2 cm from the nipple, a correlating 3 mm AP x 4 mm transverse x 6 mm CC hyperechoic focus with internal cystic features is seen. No posterior acoustic changes. No abnormal vascularity. IMPRESSION IMPRESSION: Microcyst cluster left breast 3 o'clock position believed correlating with mammographic nodular concern. RECOMMENDATION: Six month followup left diagnostic mammogram and ultrasound to confirm expected correlation and stability. Findings and recommendation discussed with the patient at the time of exam. Patient received the result and recommendation letter. BRENDEN/desirae - uploaded from [employer] us Maria Elena P Winslow WATCH COMMANDER MAMMO ORDERABLES Final Result documented in this encounter Visit Diagnoses Diagnosis Other (abnormal) findings on radiological examination of breast- Primary Other (abnormal) findings on radiological examination of breast documented in this encounter Care Teams Property Utilization Officer Relationship Specialty Start Date End Date Terry Gtz MD [address] [place] [address] [address] [place] [facility] [place] [phone] PCP - General Family Practice 01/12/20 documented as of this encounter
--- OUTSIDE RECORDS SUMMARY | 2025-04-06 09:16 | XMS_ITS | Encounter Summary ---
Author Organization [facility] Address [address] [place] [address] Care Team Providers Care Sander Wooden Pencils Name Role Phone Terry Gtz MD Primary Care Provider [phone] Encounter Details Date Type Department Care Team (Latest Contact Info) Description 03/31/2004 Outpatient Historical [facility] OBGYN-Ludwig [place] [address] [place] [address] Dougie Hess MD NO ADDRESS ON FILE Routine medical exam (Primary Dx); Gynecologic examination Social History Tobacco Use Types Packs/Day Years Used Date Smoking Tobacco: Never Assessed Comments Unknown Sex and Gender Information Value Date Recorded Sex Assigned at Not on file 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
--- OUTSIDE RECORDS SUMMARY | 2025-04-06 09:16 | XMS_ITS | Encounter Summary ---
Author Organization [facility] Address [address] [place] [address] Care Team Providers Care Regional Administrative Assistant Name Role Phone Terry Gtz MD Primary Care Provider [phone] Encounter Details Date Type Department Care Team (Late st Contact Info) Description 07/09/2006 Outpatient [facility] Dermatology- [address] 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
--- OUTSIDE RECORDS SUMMARY | 2025-04-06 09:16 | XMS_ITS ---
Author Organization Unknown [facility] Start Date Provider Encounter for Check-up [phone] [facility]
--- OUTSIDE RECORDS SUMMARY | 2025-04-06 09:16 | XMS_ITS | Encounter Summary ---
Author Organization [facility] Address [address] [place] [address] Care Team Providers Care Supervisor Dyer Name Role Phone Terry Gtz MD Primary Care Provider [phone] Encounter Details Date Type Department Care Team (Late st Contact Info) Description 02/20/2001 Outpatient Historical [facility] Breast [facility] [place] [address] [place] [address] Brie Watts MD NO ADDRESS ON FILE Other screening mammogram (Primary Dx) Social History Tobacco Use Types Packs/Day Years Used Date Smoking Tobacco: Never Assessed Comments Unknown Sex and Gender Information Value Date Recorded Sex Assigned at Not on file 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
--- OUTSIDE RECORDS SUMMARY | 2025-04-06 09:16 | XMS_ITS | Encounter Summary ---
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
--- OUTSIDE RECORDS SUMMARY | 2025-04-06 09:16 | XMS_ITS | Encounter Summary ---
Author Organization [facility] Address [address] [place] [address] Care Team Providers Care Wool Hat Flanger Name Role Phone Terry Gtz MD Primary Care Provider [phone] Reason for Referral * Outpatient Services (Routine) - Closed Specialty Diagnoses / Procedures Referred By Contac t Referred To Contact Radiology Diagnoses Other (abnormal) findings on radiological examination of breast Procedures MAMMO DIGITAL DIAG UNI LEFT Maria Elena Winslow APN [address] [address] Phone: tel: fax: [facility] [address] [facility] [address] [place] [address] Phone: tel: fax: Referral ID Status Reason Start Date Expiration Date Visits Re quested Visits Authorized [id number] Closed 09/23/2013 10/24/2014 1 1 URCE MANAGER Encounter Details Date Type Department Care Team (Latest Contact Info) Description 09/23/2013 Ancillary Orders [facility] [address] [place] [address] [place] [address] [place] [address] Maria Elena Winslow APN [address] [address] Other (abnormal) findings on radiological examination of breast (Primary Dx) Social History Tobacco Use Types Packs/Day Years Used Date Smoking Tobacco: Never Assessed Comments Unknown Sex and Gender Information Value Date Recorded Sex Assigned at Not on file Legal Sex Female 5:52 AM RESOURCE MANAGER Gender Identity Not on file Sexual Orientation Not on file Occupation Industry Job Start Date Job End Date Not on file Not on file Not on file Not on file documented as of this encounter Plan of Treatment Not on file documented as of this encounter Results * (ABNORMAL) MAMMO DIGITAL DIAG UNI LEFT (09/28/2013 2:02 PM CDT) Anatomical Region Laterality Modality Breast Left Mammography 09/28/2013 12:1 9 PM CDT Impressions 10/01/2013 6:04 AM CDT IMPRESSION: Microcyst cluster left breast 3 o'clock position believed correlating with mammographic nodular concern. RECOMMENDATION: Six month followup left diagnostic mammogram and ultrasound to confirm expected correlation and stability. Findings and recommendation discussed with the patient at the time of exam. Patient received the result and recommendation letter. BRENDEN/desirae - uploaded from [employer] Narrative 10/01/2013 6:04 AM CDT LEFT DIAGNOSTIC [...] changes. No abnormal vascularity. Procedure Note Michelet Ruiz MD - 10/01/2013 LEFT DIAGNOSTIC MAMMOGRAM AND [...] and recommendation letter. BRENDEN/desirae - uploaded from [employer] us Maria Elena P Winslow V BELT BUILDER MAMMO ORDERABLES Final Result documented in this encounter Visit Diagnoses Diagnosis Other (abnormal) findings on radiological examination of breast- Primary Other (abnormal) findings on radiological examination of breast documented in this encounter Care Teams Wool Hat Flanger Relationship Specialty Start Date End Date Terry Gtz MD [address] [place] [address] [place] [address] PCP - General Family Practice 01/12/20 documented as of this encounter
--- OUTSIDE RECORDS SUMMARY | 2025-04-06 09:16 | XMS_ITS | Encounter Summary ---
Author Organization [facility] Address [address] [place] [address] Care Team Providers Care Wrapper Caser Name Role Phone Terry Gtz MD Primary Care Provider [phone] Encounter Details Date Type Department Care Team (Latest Contact Info) Description 05/15/2006 Outpatient [facility] OBGYN-Lud[place] [address] [place] [address] Dougie Hess MD NO ADDRESS ON FILE Follow-Up Examination, Following Unspecified Surgery (Primary Dx) Social History Tobacco Use Types Packs/Day Years Used Date Smoking Tobacco: Never Assessed Comments Unknown Sex and Gender Information Value Date Recorded Sex Assigned at Not on file Legal 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
--- OUTSIDE RECORDS SUMMARY | 2025-04-06 09:16 | XMS_ITS | Encounter Summary ---
Author Organization [facility] Address [address] [place] [address] Care Team Providers Care Aircraft Captain Name Role Phone Terry Gtz MD Primary Care Provider [phone] Encounter Details Date Type Department Care Team (Latest Contact Info) Description 02/15/1999 Outpatient Historical [facility] OBGYN-Ludwig [place] [address] [place] [address] Dougie Hess MD NO ADDRESS ON FILE Lump or mass in breast (Primary Dx) Social History Tobacco Use Types Packs/Day Years Used Date Smoking Tobacco: Never Assessed Comments Unknown Sex and Gender Information Value Date Recorded Sex Assigned at Not on file Legal Sex Female 5:52 AM CLAIMS 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
--- OUTSIDE RECORDS SUMMARY | 2025-04-06 09:16 | XMS_ITS | Encounter Summary ---
Author Organization [facility] Address [address] [place] [address] Care Team Providers Care Nurse Sitter Name Role Phone Terry Gtz MD Primary Care Provider [phone] Encounter Details Date Type Department Care Team (Latest Contact Info) Description 08/16/1997 Outpatient Historical [facility] OBGYN-Ludwig [place] [address] [place] [address] Dougie Hess MD NO ADDRESS ON FILE Gynecologic examination (Primary Dx) Social History Tobacco Use Types Packs/Day Years Used Date Smoking Tobacco: Never Assessed Comments Unknown Sex and Gender Information Value Date Recorded Sex Assigned at Not on file Legal Sex Female 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
--- OUTSIDE RECORDS SUMMARY | 2025-04-06 09:16 | XMS_ITS | Clinical Summary ---
Author Organization [facility] Address [address] [facility] [place] [address] Care Team Providers Care Proof Coins Inspector Name Role Phone Terry Gtz MD Primary Care Provider Medications No known medications Immunizations Immunization Administration Dates Next Due (ADACEL/BOOSTRIX)(10 YR UP) TDAP VACCINE, 0.5ML, IM 04/16/2008 Influenza Seasonal Unspecified Formulation IM Family History Medical History Relation Name Comments Cancer Mother UTERINE CANCER Ovarian Cancer Mother ? 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 Gender Identity Not on file Sexual Orientation Not on file Occupation Industry Job Start Date Job End Date Not on file Not on file Not on file Not on file Not on file Not on file Not on file Not on file Plan of Treatment Health Maintenance Due Date Last Done Comments COLORECTAL SCREENING 2004 Colorectal Cancer Screening 2004 FIT-DNA Q 3 years 2004 FIT/FOBT Q 1 year 2004 Flex Sig/CT Colonography Q 5 years 2004 PNEUMOCOCCAL VACCINE 50+ YEA RS (1 of 1 - PCV) 2009 ZOSTER VACCINE (1 of 2) 2009 DTAP/TDAP/TD VACCINES (2 - T d or Tdap) 04/16/2018 04/16/2008 BREAST CANCER SCREENING 01/11/2021 01/12/20 20, 12/24/2014, 05/13/2014, Additional history exists OSTEOPOROSIS SCREENING 2024 INFLUENZA VACCINE (#1) 2025 05/04/2009 RSV VACCINE (60+ or ) (1 - 1-dose 75+ series) 2034 Procedures Procedure Name Priority Date/Time Associated Diagnosis Comments MAMMO 3D EVANGELINA SCREEN BILAT W OR WO CAD Routine 01/12/2020 12:36 PM CDT Encounter for screening mammogram for malignant neoplasm of breast from Last 3 Months or Most Recently Relevant to Health Maintenance Results * MAMMO SCRN BILAT 3D EVANGELINA W OR WO CAD (01/12/2020 12:36 PM CDT) Anatomical Region Laterality Modality Breast Bilateral Mammography Narrative 01/12/2020 2:01 PM CDT Bilateral Digital Mammogram with CAD and 3D Tomography Reason for Exam: Screening Comparison: Compared to: 12/24/2014 MAMMO DIGITAL DIAG BILAT, 05/13/2014 MAMMO DIGITAL DIAG UNI LEFT, and 09/10/2013 MAMMO DIGITAL SCREEN BILAT Technique: 3D MLO and CC digital tomosynthesis images were acquired and synthesized 2D images (C view) were generated. This digital mammogram was also analyzed by the Computer Aided Detection System CAD). Breast Composition: The breasts are almost entirely fatty. There are no suspicious masses, areas of architectural distortions, or microcalcifications to suggest malignancy. No significant new findings since the prior mammogram(s). Terry Gtz MD MAMMO ORDERABLES Final Result from Last 3 Months or Most Recently Relevant to Health Maintenance Insurance CHOICE PLUS Care Teams Proof Coins Inspector Relationship Specialty Start Date End Date Terry Gtz MD [address] [place] [address] [place] [phone] PCP - General Family Practice 01/12/20
--- OUTSIDE RECORDS SUMMARY | 2025-04-06 09:16 | XMS_ITS | Encounter Summary ---
Author Organization [facility] Address [address] [place] [address] Care Team Providers Care Corn Husk Baler Name Role Phone Terry Gtz MD Primary Care Provider [phone] Encounter Details Date Type Department Care Team (Latest Contact Info) Description 05/23/2004 Outpatient Historical [facility] [address] [place] [address] [address] [place] [phone] Darren Watters MD [address] [place] [address] DYSPLASIA OF VAGINA (Primary Dx) Social History Tobacco Use Types Packs/Day Years Used Date Smoking Tobacco: Never Assessed Comments Unknown Sex and Gender Information Value Date Recorded Sex Assigned at Not on file 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
--- OUTSIDE RECORDS SUMMARY | 2025-04-06 09:16 | XMS_ITS | Encounter Summary ---
Author Organization [facility] Address [address] [place] [address] Care Team Providers Care Base Brander Name Role Phone Terry Gtz MD Primary Care Provider Encounter Details Date Type Department Care Team (Latest Contact Info) Description 07/05/2004 Outpatient Historical [facility] Breast [place] Oziel Mendoza [place] [address] [place] [address] Xin Leyva MD NO ADDRESS ON FILE SCREENING MAMM-MAILG NEOPL-OTHER (Primary Dx) Social History Tobacco Use Types Packs/Day Years Used Date Smoking Tobacco: Never Assessed Comments Unknown Sex and Gender Information Value Date Recorded Sex Assigned at Not on file Legal Sex Female 5:52 AM FOOD CHECKER Gender Identity Not on file Sexual Orientation Not on file documented as of this encounter Plan of Treatment Not on file documented as of this encounter Visit Diagnoses Diagnosis Other screening mammogram- Primary documented in this encounter Care Teams Base Brander Relationship Specialty Start Date End Date Terry Gtz MD [address] [place] [address] [place] [phone] PCP - General Family Practice 01/12/20 documented as of this encounter
--- OUTSIDE RECORDS SUMMARY | 2025-04-06 09:16 | XMS_ITS | Encounter Summary ---
Author Organization [facility] Address [address] [place] [address] Care Team Providers Care Orchardist Name Role Phone Terry Gtz MD Primary Care Provider Encounter Details Date Type Department Care Team (Latest Contact Info) Description 06/18/2005 Outpatient Historical [facility] OBGYN-Ludwig [place] [address] [place] [phone] Dougie Hess MD NO ADDRESS ON FILE Routine medical exam (Primary Dx); ROUTINE CDL B DRIVER EXAMINATION Social History Tobacco Use Types Packs/Day Years Used Date Smoking Tobacco: Never Assessed Comments Unknown Sex and Gender Information Value Date Recorded Sex Assigned at Not on file 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
--- OUTSIDE RECORDS SUMMARY | 2025-04-06 09:16 | XMS_ITS | Encounter Summary ---
Author Organization [facility] Address [address] [place] [address] Care Team Providers Care Food Service Steward Name Role Phone Terry Gtz MD Primary Care Provider [phone] Encounter Details Date Type Department Care Team (Latest Contact Info) Description 05/10/2004 Outpatient Historical [facility] OBGYN-Ludwig [place] [address] [place] [address] Dougie Hess MD NO ADDRESS ON FILE NONINFLAM DIS VAGINA NEC (Primary Dx); DYSPLASIA OF VAGINA Social History Tobacco Use Types Packs/Day Years Used Date Smoking Tobacco: Never Assessed Comments Unknown Sex and Gender Information Value Date Recorded Sex Assigned at Not on file 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
--- OUTSIDE RECORDS SUMMARY | 2025-04-06 09:16 | XMS_ITS | Encounter Summary ---
Author Organization [facility] Address [address] [place] [address] Care Team Providers Care Orthotist/Prosthetist Name Role Phone Terry Gtz MD Primary Care Provider [phone] Encounter Details Date Type Department Care Team (Latest Contact Info) Description 12/01/1997 Outpatient Historical [facility] OBGYN-Ludwig [place] [address] [place] [address] Dougie Hess MD NO ADDRESS ON FILE Follow-up examination following surgery (Primary Dx) Social History Tobacco Use Types Packs/Day Years Used Date Smoking Tobacco: Never Assessed Comments Unknown Sex and Gender Information Value Date Recorded Sex Assigned at Not on file Legal Sex Female 5: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
--- OUTSIDE RECORDS SUMMARY | 2025-04-06 09:16 | XMS_ITS | Encounter Summary ---
Author Organization 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
--- OUTSIDE RECORDS SUMMARY | 2025-04-06 09:16 | XMS_ITS | Encounter Summary ---
Author Organization [facility] Address [address] [place] [address] Care Team Providers Care Security Installer Name Role Phone Terry Gtz MD Primary Care Provider [phone] Encounter Details Date Type Department Care Team (Late st Contact Info) Description 11/23/1997 Outpatient [facility] OBSUKHDEVNOziel [place] [address] [place] [address] Social History Tobacco Use Types Packs/Day Years Used Date Smoking Tobacco: Never Assessed Comments Unknown Sex and Gender Information Value Date Recorded Sex Assigned at Not on file Legal 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
--- OUTSIDE RECORDS SUMMARY | 2025-04-06 09:16 | XMS_ITS | Encounter Summary ---
Author Organization [facility] Address [address] [place] [address] Care Team Providers Care Hand Marker Name Role Phone Terry Gtz MD Primary Care Provider [phone] Reason for Referral * Outpatient Services (Routine) - Closed Specialty Diagnoses / Procedures Referred By Brian hancock Referred To Contact Radiology Diagnoses Other screening mammogram Procedures MAMMO DIGITAL SCREEN BILAT Maria Elena Winslow APN [address] [address] Phone: tel: fax: [facility] [address] [facility] [address] [place] [address] Phone: tel: fax: Referral ID Status Reason Start Date Expiration Date V isits Requested Visits Authorized [id number] Closed [facility] View CTS to Schedule (SGF) 09/01/2013 10/02/2014 1 1 ORTHOPAEDIC Encounter Details Date Type Department Care Team (Latest Contact Info) Description 09/01/2013 Ancillary Orders [facility] Centralized Scheduling [address] [place] [address] Maria Elena Winslow APN [address] [address] Other screening mammogram (Primary Dx) Social History Tobacco Use Types Packs/Day Years Used Date Smoking Tobacco: Never Assessed Comments Unknown Sex and Gender Information Value Date Recorded Sex Assigned at Not on file Legal Sex Female 5:52 AM RN ORTHOPAEDIC Gender Identity Not on file Sexual Orientation Not on file documented as of this encounter Plan of Treatment Not on file documented as of this encounter Results * MAMMO DIGITAL SCREEN BILAT (09/10/2013 12:06 PM RN ORTHOPAEDIC) Anatomical Region Laterality Modality Breast Bilateral Mammography 09/10/2013 11:3 7 AM RN ORTHOPAEDIC Impressions 09/14/2013 5:24 PM RN ORTHOPAEDIC : Patient needs to return for additional views on the left. KG/rli - uploaded from [employer] - Ahonya 09/14/2013 5:24 PM RN ORTHOPAEDIC REASON FOR EXAM: Screening IMAGES OBTAINED: Standard 4-view mammogram. PATIENT COMPLAINT: No Concerns FAMILY HX.-BREAST Ca: Negative TISSUE COMPOSITION: Average, scattered fibroglandular densities COMPARISON EXAM(S): The most recent previous studies of 06/25/2003 and 07/05/2004 FINDINGS: RIGHT BREAST: No appreciable interval change is identified. LEFT BREAST: On the left CC view in the lateral and anterior aspect of the breast there appears to be an area of nodularity possibly representing an interval change. I would recommend that the patient return for a magnification view in the CC projection with the nipple in profile and a lateral projection with the nipple in profile. If the nodule persist in two views, ultrasound may be needed. This mammogram was also analyzed by the Computer Aided Detection System (CAD), [employer] ImageChecker, Version 8.3. Procedure Note Brie Watts MD - 09/14/2013 REASON FOR EXAM: Screening IMAGES OBTAINED: Standard 4-view mammogram. PATIENT COMPLAINT: No Concerns FAMILY HX.-BREAST Ca: Negative TISSUE COMPOSITION: Average, scattered fibroglandular densities COMPARISON EXAM(S): The most recent previous studies of 06/25/2003 and 07/05/2004 FINDINGS: RIGHT BREAST: No appreciable interval change is identified. LEFT BREAST: On the left CC view in the lateral and anterior aspect of the breast there appears to be an area of nodularity possibly representing an interval change. I would recommend that the patient return for a magnification view in the CC projection with the nipple in profile and a lateral projection with the nipple in profile. If the nodule persist in two views, ultrasound may be needed. This mammogram was also analyzed by the Computer Aided Detection System (CAD), [employer] ImageWeHealthcker, Version 8.3. IMPRESSION: Patient needs to return for additional views on the left. KG/rli - uploaded from [employer] - us Maria Elena P Winslow GRAIN OILSEED OR PASTURE FARM WORKER MAMMO ORDERABLES Final Result documented in this encounter Visit Diagnoses Diagnosis Other screening mammogram- Primary Other screening mammogram documented in this encounter Care Teams Hand Marker Relationship Specialty Start Date End Date Terry Gtz MD [address] [place] [address] [place] [phone] PCP - General Family Practice 01/12/20 documented as of this encounter
--- OUTSIDE RECORDS SUMMARY | 2025-04-06 09:16 | XMS_ITS | Encounter Summary ---
Author Organization [facility] Address [address] 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
--- OUTSIDE RECORDS SUMMARY | 2025-04-06 09:16 | XMS_ITS | Encounter Summary ---
Author Organization [facility] Address [address] [place] [address] Care Team Providers Care Knife Changer Name Role Phone Terry Gtz MD Primary Care Provider [phone] Encounter Details Date Type Department Care Team (Latest Contact Info) Description 09/20/1998 Outpatient Historical [facility] OBGYN-Lud[place] [address] [place] [address] Dougie Hess MD NO ADDRESS ON FILE Other ovarian failure (Primary Dx) Social History Tobacco Use Types Packs/Day Years Used Date Smoking Tobacco: Never Assessed Comments Unknown Sex and Gender Information Value Date Recorded Sex Assigned at Not on file Legal Sex Female 5:52 AM ARCHITECT NAVAL Gender Identity Not on file Sexual Orientation Not on file documented as of this encounter Plan of Treatment Not on file documented as of this encounter Visit Diagnoses Diagnosis Other ovarian failure- Primary documented in this encounter Care Teams Knife Changer Relationship Specialty Start Date End Date Terry Gtz MD [address] [place] [address] [place] [address] PCP - General Family Practice 01/12/20 documented as of this encounter
--- OUTSIDE RECORDS SUMMARY | 2025-04-06 09:16 | XMS_ITS | Encounter Summary ---
Author Organization [facility] Address [address] [place] [address] Care Team Providers Care School Cafeteria Cook Head Name Role Phone Terry Gtz MD Primary Care Provider [phone] Encounter Details Date Type Department Care Team (Latest Contact Info) Description 12/06/2004 Outpatient Historical [facility] [address] [place] [address] [address] [place] [address] Darren Watters MD [address] [place] [address] DYSPLASIA OF VAGINA (Primary Dx) Social History Tobacco Use Types Packs/Day Years Used Date Smoking Tobacco: Never Assessed Comments Unknown Sex and Gender Information Value Date Recorded Sex Assigned at Not on file 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
--- OUTSIDE RECORDS SUMMARY | 2025-04-06 09:16 | XMS_ITS | Encounter Summary ---
Author Organization [facility] Address [address] Jacquesn: Epic [place] [address] Care Team Providers Care Operations Trainer Name Role Phone Terry Gtz MD Primary Care Provider Encounter Details Date Type Department Care Team (Late st Contact Info) Description 09/13/2000 Outpatient Historical Dougie Hess MD NO ADDRESS ON FILE Social History Tobacco Use Types Packs/Day Years Used Date Smoking Tobacco: Never Assessed Comments Unknown Sex and Gender Information Value Date Recorded Sex Assigned at Not on file Legal Sex Female 5:52 AM DOCK BOSS Gender Identity Not on file Sexual Orientation Not on file documented as of this encounter Plan of Treatment Not on file documented as of this encounter Visit Diagnoses Not on filedocumented in this encounter Care Teams Operations Trainer Relationship Specialty Start Date End Date Terry Gtz MD [address] [place] [address] [place] [address] PCP - General Family Practice 01/12/20 documented as of this encounter
--- OUTSIDE RECORDS SUMMARY | 2025-04-06 09:16 | XMS_ITS | Encounter Summary ---
Author Organization [facility] Address [address] [place] [address] Care Team Providers Care Vulcan Crewmember Name Role Phone Terry Gtz MD Primary Care Provider Encounter Details Date Type Department Care Team (Latest Contact Info) Description 07/05/2004 Outpatient Historical [facility] Breast [place] Oziel Mendoza [place] [address] [place] [phone] Dougie Hess MD NO ADDRESS ON FILE SCREENING MAMM-MAILG NEOPL-OTHER (Primary Dx) Social History Tobacco Use Types Packs/Day Years Used Date Smoking Tobacco: Never Assessed Comments Unknown Sex and Gender Information Value Date Recorded Sex Assigned at Not on file Legal Sex Female 5:52 AM RN NEW GRADUATE Gender Identity Not on file Sexual Orientation Not on file documented as of this encounter Plan of Treatment Not on file documented as of this encounter Visit Diagnoses Diagnosis Other screening mammogram- Primary documented in this encounter Care Teams Vulcan Crewmember Relationship Specialty Start Date End Date Terry Gtz MD [address] [place] [address] [place] [phone] PCP - General Family Practice 01/12/20 documented as of this encounter
--- OUTSIDE RECORDS SUMMARY | 2025-04-06 09:16 | XMS_ITS | Encounter Summary ---
Author Organization [facility] Address [address] [place] [address] Care Team Providers Care Sample Room Supervisor Name Role Phone Terry Gtz MD Primary Care Provider [phone] Encounter Details Date Type Department Care Team (Latest Contact Info) Description 09/13/2000 Outpatient Historical [facility] OBGYN-Ludwig [place] [address] [place] [address] Dougie Hess MD NO ADDRESS ON FILE Dysplasia of cervix (uteri) (Primary Dx) Social History Tobacco Use Types Packs/Day Years Used Date Smoking Tobacco: Never Assessed Comments Unknown Sex and Gender Information Value Date Recorded Sex Assigned at Not on file Legal Sex Female 5:52 AM LIBRARY SERVICES DEAN Gender Identity Not on file Sexual Orientation Not on file documented as of this encounter Plan of Treatment Not on file documented as of this encounter Visit Diagnoses Diagnosis Dysplasia of cervix (uteri)- Primary documented in this encounter Care Teams Sample Room Supervisor Relationship Specialty Start Date End Date Terry Gtz MD [address] [place] [address] [place] [phone] PCP - General Family Practice 01/12/20 documented as of this encounter
--- OUTSIDE RECORDS SUMMARY | 2025-04-06 09:16 | XMS_ITS | Encounter Summary ---
Author Organization [facility] Address [address] [place] [address] Care Team Providers Care Event Planner Name Role Phone Terry Gtz MD Primary Care Provider [phone] Encounter Details Date Type Department Care Team (Late st Contact Info) Description 02/20/2000 Outpatient Historical [facility] Ludwig Reji [place] [address] [place] [phone] Brie Watts MD NO ADDRESS ON FILE Other screening mammogram (Primary Dx) Social History Tobacco Use Types Packs/Day Years Used Date Smoking Tobacco: Never Assessed Comments Unknown Sex and Gender Information Value Date Recorded Sex Assigned at Not on file Legal Sex Female 5:[address]PERVISOR Gender Identity Not on file Sexual Orientation Not on file documented as of this encounter Plan of Treatment Not on file documented as of this encounter Visit Diagnoses Diagnosis Other screening mammogram- Primary documented in this encounter Care Teams Event Planner Relationship Specialty Start Date End Date Terry Gtz MD [address] [place] [address] [place] [phone] PCP - General Family Practice 01/12/20 documented as of this encounter
--- OUTSIDE RECORDS SUMMARY | 2025-04-06 09:16 | XMS_ITS | Encounter Summary ---
Author Organization [facility] Address [address] [place] [address] Care Team Providers Care Bid Writer Name Role Phone Terry Gtz MD Primary Care Provider [phone] Encounter Details Date Type Department Care Team (Latest Contact Info) Description 12/08/1999 Outpatient Historical [facility] OBGYN-Ludwig [place] [address] [place] [phone] Dougie Hess MD NO ADDRESS ON FILE Abn Pap Smear-Cervix (Primary Dx) Social History Tobacco Use Types Packs/Day Years Used Date Smoking Tobacco: Never Assessed Comments Unknown Sex and Gender Information Value Date Recorded Sex Assigned at Not on file 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
--- OUTSIDE RECORDS SUMMARY | 2025-04-06 09:16 | XMS_ITS | Encounter Summary ---
Author Organization [facility] Address [address] [place] [address] Care Team Providers Care Help Desk Team Leader Name Role Phone Terry Gtz MD Primary Care Provider [phone] Encounter Details Date Type Department Care Team (Latest Contact Info) Description 10/01/1997 Outpatient Historical [facility] OBGYN-Ludwig [place] [address] [place] [address] Dougie Hess MD NO ADDRESS ON FILE Abn Pap Smear-Cervix (Primary Dx) Social History Tobacco Use Types Packs/Day Years Used Date Smoking Tobacco: Never Assessed Comments Unknown Sex and Gender Information Value Date Recorded Sex Assigned at Not on file 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
--- OUTSIDE RECORDS SUMMARY | 2025-04-06 09:17 | XMS_ITS | Encounter Summary ---
Author Organization [facility] Address [address] [place] [address] Care Team Providers Care Waistline Joiner Name Role Phone Terry Gtz MD Primary Care Provider [phone] Encounter Details Date Type Department Care Team (Latest Contact Info) Description 06/25/2003 Outpatient Historical [facility] Breast [place] Oziel Mendoza [place] [address] [place] [phone] Dougie Hess MD NO ADDRESS ON FILE SCREENING MAMM-MAILG NEOPL-OTHER (Primary Dx) Social History Tobacco Use Types Packs/Day Years Used Date Smoking Tobacco: Never Assessed Comments Unknown Sex and Gender Information Value Date Recorded Sex Assigned at Not on file 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
--- OUTSIDE RECORDS SUMMARY | 2025-04-06 09:17 | XMS_ITS | Encounter Summary ---
Author Organization [facility] Address [address] [place] [address] Care Team Providers Care Breaker Up Name Role Phone Terry Gtz MD Primary Care Provider [phone] Encounter Details Date Type Department Care Team (Latest Contact Info) Description 05/30/[address] 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
--- OUTSIDE RECORDS SUMMARY | 2025-04-06 09:17 | XMS_ITS | Encounter Summary ---
Author Organization [facility] Address [address] [place] [address] Care Team Providers Care Health Program Manager Name Role Phone Terry Gtz MD Primary Care Provider [phone] Encounter Details Date Type Department Care Team (Latest Contact Info) Description 07/17/2001 Outpatient Historical [facility] OBGYN-Ludwig [place] [address] [place] [address] Dougie Hess MD NO ADDRESS ON FILE SURGERY FOLLOWUP, UNSPEC (Primary Dx) Social History Tobacco Use Types Packs/Day Years Used Date Smoking Tobacco: Never Assessed Comments Unknown Sex and Gender Information Value Date Recorded Sex Assigned at Not on file 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
--- OUTSIDE RECORDS SUMMARY | 2025-04-06 09:17 | XMS_ITS | Encounter Summary ---
Author Organization [facility] Address [address] 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
--- OUTSIDE RECORDS SUMMARY | 2025-04-06 09:17 | XMS_ITS | Encounter Summary ---
Author Organization [facility] Address [address] [place] [address] Care Team Providers Care Administrative Support Clerk Name Role Phone Terry Gtz MD Primary Care Provider [phone] Reason for Referral * Outpatient Services (Routine) - Closed Specialty Diagnoses / Procedures Referred By Brian hancock Referred To Contact Diagnoses Abnormal mammogram, unspecified Procedures MAMMO BREAST US LT Maria Elena Winslow APN [address] [address] Phone: tel: fax: [facility] Pre-Registration [place] CALL TO MAKE APPOINTMENT ONLY [address] [place] [address] Phone: tel: fax: Referral ID Status Reason Start Date Expiration Date Visits Requested Visits Authorized [id number] Closed Performing Department To Schedule (SGF) 04/23/2014 05/24/2015 1 1 * Outpatient Services (Routine) - Closed Specialty Diagnoses / Procedures Referred By Brian hancock Referred To Contact Diagnoses Abnormal mammogram, unspecified Procedures MAMMO DIGITAL DIAG UNI LEFT Maria Elena Winslow APN [address] [address] Phone: tel: fax: [facility] Pre-Registration [place] CALL TO MAKE APPOINTMENT ONLY [address] [address] Phone: tel: fax: Referral ID Status Reason Start Date Expiration Date V isits Requested Visits Authorized [id number] Closed [facility] TO SCHEDULE ([facility]) 04/23/2014 05/24/2015 1 1 Encounter Details Date Type Department Care Team (Latest Contact Info) Description 04/23/[address] [facility] Pre-Registration [place] CALL TO MAKE APPOINTMENT ONLY [address] [phone] Maria Elena Winslow APN 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 Gender Identity Not on file Sexual Orientation Not on file Occupation Industry Job Start Date Job End Date Not on file Not on file Not on file Not on file documented as of this encounter Plan of Treatment Not on file documented as of this encounter Results * (ABNORMAL) MAMMO BREAST US LT (05/13/2014 12:24 PM CDT) Anatomical Region Laterality Modality Breast Left Ultrasound 05/13/2014 11:5 7 AM CDT Narrative 05/13/2014 2:17 PM CDT Left 6 Month Followup Left Mammogram and Ultrasound: 05/13/2014 The patient had a screening on 09/10/2013 and there was a vague low-density nodule seen laterally on the left. She had additional views and ultrasound on 09/28/2013 and what appeared to be a cluster of tiny cysts was identified sonographically and a 6 month followup was recommended. Left craniocaudal and oblique views show completely fatty-replaced breast tissue. The nodule that was seen previously is much less prominent on today's exam. I do not see any suspicious findings. Comparison is made with prior exams of 09/28/2013, 09/10/2013, and the most recent prior mammogram prior to that dated 07/05/2004. This digital mammogram was also analyzed by the Computer Aided Detection System (CAD), R2 ImageChecker, Version 8.3. Left Breast Ultrasound: Ultrasound was repeated to recheck the benign-appearing nodule at the 3-2 position. It is again identified and appears to be made up of tiny cystic areas and is measuring 3 x 4 x 6 mm stable since the prior ultrasound of 09/28/2013. CONCLUSION: No significant change is seen on the left mammographically or sonographically. Benign-appearing probable fibrocystic nodule at 3 o'clock is stable. I would recommend bilateral followup diagnostic mammogram in 6 months time. Patient received a result/recommendation letter. JUAN CARLOS/ricardo 1211 PM - uploaded from [employer] - Procedure Note Xin Leyva MD - 05/13/2014 Left 6 Month Followup Left Mammogram and Ultrasound: 05/13/2014 The patient had a screening on 09/10/2013 and there was a vague low-density nodule seen laterally on the left. She had additional views and ultrasound on 09/28/2013 and what appeared to be a cluster of tiny cysts was identified sonographically and a 6 month followup was recommended. Left craniocaudal and oblique views show completely fatty-replaced breast tissue. The nodule that was seen previously is much less prominent on today's exam. I do not see any suspicious findings. Comparison is made with prior exams of 09/28/2013, 09/10/2013, and the most recent prior mammogram prior to that dated 07/05/2004. This digital mammogram was also analyzed by the Computer Aided Detection System (CAD), R2 ImageChecker, Version 8.3. Left Breast Ultrasound: Ultrasound was repeated to recheck the benign-appearing nodule at the 3-2 position. It is again identified and appears to be made up of tiny cystic areas and is measuring 3 x 4 x 6 mm stable since the prior ultrasound of 09/28/2013. CONCLUSION: No significant change is seen on the left mammographically or sonographically. Benign-appearing probable fibrocystic nodule at 3 o'clock is stable. I would recommend bilateral followup diagnostic mammogram in 6 months time. Patient received a result/recommendation letter. Giovana 1211 PM - uploaded from [email or web address] - us Maria Elena Winslow INFLATABLE BUILDINGS LAMINATOR MAMMO ORDERABLES Final Result * (ABNORMAL) MAMMO DIGITAL DIAG UNI LEFT (05/13/2014 11:40 AM CDT) Anatomical Region Laterality Modality Breast Left Mammography 05/13/2014 11:1 1 AM CDT Narrative 05/13/2014 2:17 PM CDT Left 6 Month Followup Left Mammogram and Ultrasound: 05/13/2014 The patient had a screening on 09/10/2013 and there was a vague low-density nodule seen laterally on the left. She had additional views and ultrasound on 09/28/2013 and what appeared to be a cluster of tiny cysts was identified sonographically and a 6 month followup was recommended. Left craniocaudal and oblique views show completely fatty-replaced breast tissue. The nodule that was seen previously is much less prominent on today's exam. I do not see any suspicious findings. Comparison is made with prior exams of 09/28/2013, 09/10/2013, and the most recent prior mammogram prior to that dated 07/05/2004. This digital mammogram was also analyzed by the Computer Aided Detection System (CAD), Night Zookeeper ImageMedNet Solutionscker, Version 8.3. Left Breast Ultrasound: Ultrasound was repeated to recheck the benign-appearing nodule at the 3-2 position. It is again identified and appears to be made up of tiny cystic areas and is measuring 3 x 4 x 6 mm stable since the prior ultrasound of 09/28/2013. CONCLUSION: No significant change is seen on the left mammographically or sonographically. Benign-appearing probable fibrocystic nodule at 3 o'clock is stable. I would recommend bilateral followup diagnostic mammogram in 6 months time. Patient received a result/recommendation letter. Giovana 1211 PM - uploaded from [email or web address] - Procedure Note iXn Leyva MD - 05/13/2014 Left 6 Month Followup Left Mammogram and Ultrasound: 05/13/2014 The patient had a screening on 09/10/2013 and there was a vague low-density nodule seen laterally on the left. She had additional views and ultrasound on 09/28/2013 and what appeared to be a cluster of tiny cysts was identified sonographically and a 6 month followup was recommended. Left craniocaudal and oblique views show completely fatty-replaced breast tissue. The nodule that was seen previously is much less prominent on today's exam. I do not see any suspicious findings. Comparison is made with prior exams of 09/28/2013, 09/10/2013, and the most recent prior mammogram prior to that dated 07/05/2004. This digital mammogram was also analyzed by the Computer Aided Detection System (CAD), Night Zookeeper ImageMedNet Solutionscker, Version 8.3. Left Breast Ultrasound: Ultrasound was repeated to recheck the benign-appearing nodule at the 3-2 position. It is again identified and appears to be made up of tiny cystic areas and is measuring 3 x 4 x 6 mm stable since the prior ultrasound of 09/28/2013. CONCLUSION: No significant change is seen on the left mammographically or sonographically. Benign-appearing probable fibrocystic nodule at 3 o'clock is stable. I would recommend bilateral followup diagnostic mammogram in 6 months time. Patient received a result/recommendation letter. JUAN CARLOS/ricardo 1211 PM - uploaded from [employer] - us Maria Elena Winslow INFLATABLE BUILDINGS LAMINATOR MAMMO ORDERABLES Final Result documented in this encounter Visit Diagnoses Diagnosis Abnormal mammogram, unspecified- Primary Abnormal mammogram, unspecified Abnormal mammogram, unspecified documented in this encounter Care Teams Administrative Support Clerk Relationship Specialty Start Date End Date Terry Gtz MD [address] [place] [address] [place] [phone] PCP - General Family Practice 01/12/20 documented as of this encounter
--- OUTSIDE RECORDS SUMMARY | 2025-04-06 09:17 | XMS_ITS | Encounter Summary ---
Author Organization [facility] Address [address] [place] [address] Care Team Providers Care Machine Operators Name Role Phone Terry Gtz MD Primary Care Provider [phone] Encounter Details Date Type Department Care Team (Late st Contact Info) Description 09/21/2002 Outpatient [facility] [address] [place] [address] Dougie Hess MD NO ADDRESS ON FILE Social History Tobacco Use Types Packs/Day Years Used Date Smoking Tobacco: Never Assessed Comments Unknown Sex and Gender Information Value Date Recorded Sex Assigned at Not on file 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
--- OUTSIDE RECORDS SUMMARY | 2025-04-06 09:17 | XMS_ITS | Encounter Summary ---
Author Organization [facility] Address [address] [place] [address] Care Team Providers Care Hangar Attendant Name Role Phone Terry Gtz MD Primary Care Provider [phone] Encounter Details Date Type Department Care Team (Latest Contact Info) Description 01/12/2003 Outpatient Historical [facility] Operating Room [address] [place] [address] Dougie Hess MD NO ADDRESS ON FILE DYSPLASIA OF VAGINA (Primary Dx) Social History Tobacco Use Types Packs/Day Years Used Date Smoking Tobacco: Never Assessed Comments Unknown Sex and Gender Information Value Date Recorded Sex Assigned at Not on file 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
--- OUTSIDE RECORDS SUMMARY | 2025-04-06 09:17 | XMS_ITS | Clinical Summary ---
Author Organization [facility] Address [address] Attn: Epic Prelude ADT [place] [address] Care Team Providers Care Child Care Centre Director Name Role Phone Terry Gtz MD Primary Care Provider [phone] Allergies Active Allergy Reactions Criticality Noted Date Comments Apixaban Hives High 06/09/2023 Codeine Nausea and Vomiting Low 06/04/2023 Medications No known medications Active Problems Problem Noted Date Diagnosed Date Typical atrial flutter 06/06/2023 Left ureteral calculus 06/06/2023 Deep vein thrombosis (DVT) of left lower extremi ty 06/06/2023 Acute respiratory insufficiency 06/06/2023 Thrombocytopenia 06/06/2023 Acute saddle pulmonary embolism with acute cor p ulmonale 06/05/2023 SHAHAB (acute kidney injury) 06/05/2023 Morbid obesity with BMI of 60.0-69.9, adult 05/22 History of COVID-19 06/05/2023 Resolved Problems Problem Noted Date Diagnosed Date Resolved Date Acute pulmonary embolism 06/05/2023 Immunizations Immunization Administration Dates Next Due (ADACEL/BOOSTRIX)(10 [...] Types Packs/Day Years Used Date Smoking Tobacco: Unknown Tobacco Cessation:Counseling Given: Not Answered Feeling Safe Answer Date Recorded Are you in a relationship wi th someone who hurts you emotionally and/or physically? No 06/05/2023 Food Insecurity Answer Date Recorded Social/Environmental Concerns No concerns Transportation Needs Answer Date Record ed Social/Environmental Concerns No concerns Housing Stability Answer Date Recorded Social/Environmental Concerns No concerns Utility Needs Answer Date Recorded Social/Environmental Concerns No concerns Comments Unknown Sex and Gender Information Value Date Recorded Sex Assigned at Not on file Legal Sex Female 9:11 AM CONSTRUCTION CARPENTERS HELPER Gender Identity Not on file Sexual Orientation Not on file Last Filed Vital Signs Vital Sign Reading Time Taken Comments Blood Pressure 138/90 06/11/2023 7:08 AM CONSTRUCTION CARPENTERS HELPER RN notified Pulse 104 06/11/2023 7:08 AM CONSTRUCTION CARPENTERS HELPER Temperature 36.7 C (98.1 F) 06/11/2023 7:08 AM CONSTRUCTION CARPENTERS HELPER Respiratory Rate 18 06/11/2023 7:08 AM CONSTRUCTION CARPENTERS HELPER Oxygen Saturation 93% 06/11/2023 7:0 8 AM CONSTRUCTION CARPENTERS HELPER Inhaled Oxygen Concentration - - Weight 162.4 kg (358 lb 2 oz) 3:02 AM CONSTRUCTION CARPENTERS HELPER Height 160 cm (5' 3 ) 06/04/2023 7:07 PM CONSTRUCTION CARPENTERS HELPER Body Mass Index 63.44 06/04/2023 7:07 PM CONSTRUCTION CARPENTERS HELPER Plan of Treatment Health Maintenance Due Date Last Done Comments Pre-Diabetes and Diabetes Screening 1960 COLORECTAL SCREENING 2004 Colorectal Cancer Screening 2004 FIT-DNA Q 3 years 2004 FIT/FOBT Q 1 year 2004 Flex Sig/CT Colonography Q 5 years 2004 PNEUMOCOCCAL VACCINE 50+ YEA RS (1 of 1 - PCV) 2009 ZOSTER VACCINE (1 of 2) 2009 DTAP/TDAP/TD VACCINES (2 - T d or Tdap) 04/16/2018 04/16/2008 RSV VACCINE (60+ or ) (1 - Risk 60-74 years 1-dose series) 2019 BREAST CANCER SCREENING 01/11/2021 01/12/20 20, 01/12/2020, 12/24/2014, Additional history exists OSTEOPOROSIS SCREENING 2024 INFLUENZA VACCINE (#1) 2025 05/04/2009 Medical Devices Implanted Type Area Tow Car Driver Device Identifier Shelf Expiration Date Model / Serial / Lot Stent Contour 6fr 22cm [id number] - [id number] Implanted:Qty: 1 on 06/07/2023 by Ludwig Sanford MD at [facility] Stent Left: Ureter [employer]/TRIMMING DEPARTMENT BLOCKER [id number] 12/13/2025 [id number] / [id number] Procedures Procedure Name Priority Date/Time Associated Diagnosis Comments MAMMO 3D EVANGELINA SCREEN BILAT W OR WO CAD Routine 01/12/2020 12:36 PM CDT Encounter for screening mammogram for malignant neoplasm of breast from Last 3 Months or Most Recently Relevant to Health Maintenance Results * MAMMO SCRN BILAT 3D EVANGELINA W OR WO CAD (01/12/2020 12:36 PM CDT) Anatomical Region Laterality Modality Breast Bilateral Other Narrative 01/12/2020 1:54 PM CDT Bilateral Digital Mammogram with CAD [...] significant new findings since the prior mammogram(s). Procedure Note Kelvin Renee MD - 12/05/2020 Bilateral Digital Mammogram with CAD and 3D [...] Most Recently Relevant to Health Maintenance Insurance [facility] [id number] RX [employer] RX Member Subscriber Plan / Payer (Ef fective 2023-Present) Name:Lauren Boyd Relation to Subscriber:Self Name:Lauren Boyd Subscriber ID:Not on file Payer ID:Not on file Group ID:[id number] Type:RX Commercial Address: [place] Advance Directives For more information, please contact: [phone] * Full Code (Latest Code Status on File) Date Activated Date Inactivated Comments 06/04/2023 9:54 PM 06/11/2023 2:37 PM Care Teams Child Care Centre Director Relationship Specialty Start Date End Date Terry Gtz MD [address] [place] [address] [place] [address] PCP - General Family Practice 01/12/20
--- OUTSIDE RECORDS SUMMARY | 2025-04-06 09:17 | XMS_ITS | Encounter Summary ---
Author Organization [facility] Address [address] [place] [address] Care Team Providers Care Tactical Debriefer Officer Name Role Phone Terry Gtz MD Primary Care Provider [phone] Encounter Details Date Type Department Care Team (Latest Contact Info) Description 07/10/2001 Outpatient Historical [facility] OBGYN-Ludwig [place] [address] [place] [address] Dougie Hess MD NO ADDRESS ON FILE DYSPLASIA OF VAGINA (Primary Dx) Social History Tobacco Use Types Packs/Day Years Used Date Smoking Tobacco: Never Assessed Comments Unknown Sex and Gender Information Value Date Recorded Sex Assigned at Not on file 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
--- OUTSIDE RECORDS SUMMARY | 2025-04-06 09:17 | XMS_ITS | Encounter Summary ---
Author Organization [facility] Address [address] [place] [address] Care Team Providers Care Unit Coordinator Name Role Phone Terry Gtz MD Primary Care Provider [phone] Reason for Referral * Outpatient Services (Routine) - Closed Specialty Diagnoses / Procedures Referred By Contac t Referred To Contact Radiology Diagnoses Abnormal mammogram, unspecified Procedures MAMMO DIGITAL DIAG BILAT Maria Elena Winslow APN [address] [address] Phone: tel: fax: [facility] [address] [facility] [address] [place] [address] Phone: tel: fax: Referral ID Status Reason Start Date Expiration Date V isits Requested Visits Authorized [id number] Closed F [facility] TO SCHEDULE (SGF) 11/30/2014 12/31/2015 1 1 Encounter Details Date Type Department Care Team (Latest Contact Info) Description 11/30/2014 Ancillary Orders [facility] Pre-Registration [place] CALL TO MAKE APPOINTMENT ONLY [address] [place] [address] Maria Elena Winslow APN 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 Gender Identity Not on file Sexual Orientation Not on file Occupation Industry Job Start Date Job End Date Not on file Not on file Not on file Not on file Not on file Not on file Not on file Not on file documented as of this encounter Plan of Treatment Not on file documented as of this encounter Results * MAMMO DIGITAL DIAG BILAT (12/24/2014 1:58 PM CDT) Anatomical Region Laterality Modality Breast Bilateral Mammography 12/24/2014 12:3 9 PM CDT Impressions 12/26/2014 2:31 PM CDT IMPRESSION: Bilateral diagnostic mammogram was performed as the second 6 month followup on the left and yearly exam on the right. We are observing a probably benign nodule in the lateral aspect of the left breast. The nodularity favors a benign process and I do not feel that there has been any significant interval change. Since the remainder of the findings bilaterally are stable as well, routine yearly screening exams are recommended. Patient is denying any complaints. Patient received the result and recommendation letter. Chucky 1350 PM - uploaded from [employer] - Narrative 12/26/2014 2:31 PM CDT REASON FOR EXAM: Patient is returning for a second 6 month followup on the left and yearly exam on the right. IMAGING PERFORMED: Standard bilateral four view mammogram. COMPARISON(S): 05/13/2014, 09/28/2013, 09/10/2013, 07/05/2004. TISSUE COMPOSITION: Fatty. FAMILY HX.-BREAST Ca: Patient is uncertain if mother had ovarian or uterine cancer. Negative for breast cancer. MAMMOGRAPHIC FINDINGS: RIGHT BREAST: Stable. LEFT BREAST: We have been observing a probably benign nodule in the anterior lateral aspect of the left breast. That nodule has remained stable. Previous ultrasounds were unremarkable as well. Today's mammogram demonstrates again a few scattered benign-appearing nodules as well as a few scattered calcifications. Patient is denying any complaints. This digital mammogram was also analyzed by the Computer Aided Detection System (CAD), [employer] ImageChecker, Version 8.3. Maria Elena Winslow AUDIT ASSOCIATE MAMMO ORDERABLES Final Result documented in this encounter Visit Diagnoses Diagnosis Abnormal mammogram, unspecified- Primary Abnormal mammogram, unspecified documented in this encounter Care Teams Unit Coordinator Relationship Specialty Start Date End Date Terry Gtz MD [address] [place] [address] [place] [address] PCP - General Family Practice 01/12/20 documented as of this encounter
--- OUTSIDE RECORDS SUMMARY | 2025-04-06 09:17 | XMS_ITS | Encounter Summary ---
Author Organization [facility] Address [address] [facility] [facility] [address] 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
--- OUTSIDE RECORDS SUMMARY | 2025-04-06 09:17 | XMS_ITS | Encounter Summary ---
Author Organization [facility] Address [address] [place] [address] Care Team Providers Care Dewaterer Operator Name Role Phone Terry Gtz MD Primary Care Provider [phone] Encounter Details Date Type Department Care Team (Latest Contact Info) Description 06/04/2002 Outpatient Historical [facility] Breast [place] Oziel Mendoza Yolyn [address] [place] [address] Kelvin Renee MD NO ADDRESS ON FILE SCREENING MAMM-MAILG NEOPL-OTHER (Primary Dx) Social History Tobacco Use Types Packs/Day Years Used Date Smoking Tobacco: Never Assessed Comments Unknown Sex and Gender Information Value Date Recorded Sex Assigned at Not on file 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
--- OUTSIDE RECORDS SUMMARY | 2025-04-06 09:17 | XMS_ITS | Encounter Summary ---
Author Organization [facility] Address [address] [place] [address] Care Team Providers Care Manual Winder Name Role Phone Terry Gtz MD Primary Care Provider [phone] Reason for Referral * Radiology Services (Routine) - Closed Specialty Diagnoses / Procedures Referred By Contpolo t Referred To Contact Diagnoses Encounter for screening mammogram for malignant neoplasm of breast Procedures MAMMO SCRN BILAT 3D EVANGELINA W OR WO CAD CHG SCREENING MAMMOGRAPHY BI 2-VIEW BREAST INC CAD CHG SCREENING DIGITAL BREAST TOMOSYNTHESIS BI Terry Gtz MD [address] [place] [address] [place] [address] Phone: tel: fax: [facility] Pre-Registration [place] CALL TO MAKE APPOINTMENT ONLY [address] [place] [address] Phone: tel: fax: Referral ID Status Reason Start Date Expiration Date Visits Re quested Visits Authorized [id number] Closed 01/08/2019 02/08/2020 1 1 Encounter Details Date Type Department Care Team (Late st Contact Info) Description 01/08/[address] 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 Gender Identity Not on file Sexual Orientation Not on file Occupation Industry Job Start Date Job End Date Not on file Not on file Not on file Not on file Not on file Not on file Not on file Not on file documented as of this encounter Plan of Treatment Not on file documented as of this encounter Results * MAMMO SCRN BILAT 3D EVANGELINA [...] Terry Gtz MD MAMMO ORDERABLES Final Result documented in this encounter Visit Diagnoses Diagnosis Encounter for screening mammogram for malignant neoplasm of breast Other screening mammogram Encounter for screening mammogram for malignant neoplasm of breast Other screening mammogram documented in this encounter Care Teams Manual Winder Relationship Specialty Start Date End Date Terry Gtz MD [address] [place] [address] [place] [address] PCP - General Family Practice 01/12/20 documented as of this encounter
--- OUTSIDE RECORDS SUMMARY | 2025-04-06 09:17 | XMS_ITS | Encounter Summary ---
Author Organization [facility] Address [address] [place] [address] Care Team Providers Care Stroboscope Operator Name Role Phone Terry Gtz MD Primary Care Provider Encounter Details Date Type Department Care Team (Latest Contact Info) Description 09/17/2003 Outpatient Historical [facility] OBGYN-Ludwig [place] [address] [place] [address] Dougie Hess MD NO ADDRESS ON FILE NONSPEC ABNL PAP SMEAR CERVIX, UNSPEC (Primary Dx); SCREENING MAL NEOP-CERVIX Social History Tobacco Use Types Packs/Day Years Used Date Smoking Tobacco: Never Assessed Comments Unknown Sex and Gender Information Value Date Recorded Sex Assigned at Not on file 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
--- OUTSIDE RECORDS SUMMARY | 2025-04-06 09:17 | XMS_ITS | Encounter Summary ---
Author Organization [facility] Address [address] [place] [address] Care Team Providers Care Bandage Maker Name Role Phone Terry Gtz MD Primary Care Provider [phone] Encounter Details Date Type Department Care Team (Latest Contact Info) Description 10/02/2002 Outpatient Historical [facility] OBGYN-Ludwig [place] [address] [place] [address] Dougie Hess MD NO ADDRESS ON FILE DYSPLASIA OF VAGINA (Primary Dx) Social History Tobacco Use Types Packs/Day Years Used Date Smoking Tobacco: Never Assessed Comments Unknown Sex and Gender Information Value Date Recorded Sex Assigned at Not on file 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
--- OUTSIDE RECORDS SUMMARY | 2025-04-06 09:17 | XMS_ITS | Encounter Summary ---
Author Organization [facility] Address [address] [place] [address] Care Team Providers Care Residential Program Coordinator Name Role Phone Terry Gtz MD Primary Care Provider [phone] Encounter Details Date Type Department Care Team (Late st Contact Info) Description 09/17/2003 [facility] [place] [address] [place] [address] Dougie Hess MD NO ADDRESS ON FILE Social History Tobacco Use Types Packs/Day Years Used Date Smoking Tobacco: Never Assessed Comments Unknown Sex and Gender Information Value Date Recorded Sex Assigned at Not on file 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
--- OUTSIDE RECORDS SUMMARY | 2025-04-06 09:17 | XMS_ITS | Encounter Summary ---
Author Organization [facility] Address [address] [place] [address] Care Team Providers Care Toe Former Name Role Phone Terry Gtz MD Primary Care Provider Encounter Details Date Type Department Care Team (Latest Contact Info) Description 01/26/2002 Outpatient Historical [facility] OBGYN-Ludwig [place] [address] [place] [address] Dougie Hess MD NO ADDRESS ON FILE Abn Pap Smear-Cervix (Primary Dx) Social History Tobacco Use Types Packs/Day Years Used Date Smoking Tobacco: Never Assessed Comments Unknown Sex and Gender Information Value Date Recorded Sex Assigned at Not on file 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
--- OUTSIDE RECORDS SUMMARY | 2025-04-06 09:17 | XMS_ITS | Encounter Summary ---
Author Organization [facility] Address [address] [place] [address] Care Team Providers Care Pie Maker Name Role Phone Terry Gtz MD Primary Care Provider [phone] Encounter Details Date Type Department Care Team (Latest Contact Info) Description 09/21/2002 Outpatient Historical [facility] OBGYN-Ludwig [place] [address] [place] [address] Dougie Hess MD NO ADDRESS ON FILE NONSPEC ABNL PAP SMEAR CERVIX, UNSPEC (Primary Dx) Social History Tobacco Use Types Packs/Day Years Used Date Smoking Tobacco: Never Assessed Comments Unknown Sex and Gender Information Value Date Recorded Sex Assigned at Not on file 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
--- OUTSIDE RECORDS SUMMARY | 2025-04-06 09:17 | XMS_ITS | Encounter Summary ---
Author Organization [facility] Address [address] [place] [address] Care Team Providers Care Driver'S License Reviewing Officer Name Role Phone Terry Gtz MD Primary Care Provider [phone] Encounter Details Date Type Department Care Team (Latest Contact Info) Description 05/12/2001 Outpatient Historical [facility] OBGYN-L[address] [place] [address] [place] [address] Dougie Hess MD NO ADDRESS ON FILE Abn Pap Smear-Cervix (Primary Dx) Social History Tobacco Use Types Packs/Day Years Used Date Smoking Tobacco: Never Assessed Comments Unknown Sex and Gender Information Value Date Recorded Sex Assigned at Not on file 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
--- OUTSIDE RECORDS SUMMARY | 2025-04-06 09:17 | XMS_ITS | Encounter Summary ---
Author Organization [facility] Address [address] [place] [address] Care Team Providers Care Electronic Gluer Name Role Phone Terry Gtz MD Primary Care Provider [phone] Encounter Details Date Type Department Care Team (Latest Contact Info) Description 06/04/2002 Outpatient Historical [facility] [place] Oziel Mendoza [place] [address] [place] [phone] Dougie Hess MD NO ADDRESS ON FILE SCREENING MAMM-MAILG NEOPL-OTHER (Primary Dx) Social History Tobacco Use Types Packs/Day Years Used Date Smoking Tobacco: Never Assessed Comments Unknown Sex and Gender Information Value Date Recorded Sex Assigned at Not on file 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
--- OUTSIDE RECORDS SUMMARY | 2025-04-06 09:17 | XMS_ITS | Encounter Summary ---
Author Organization [facility] Address [address] [place] [address] Care Team Providers Care Direct Entry Midwife Name Role Phone Terry Gtz MD Primary Care Provider [phone] Encounter Details Date Type Department Care Team (Latest Contact Info) Description 01/19/2003 Outpatient Historical [facility]ud[facility] [place] [address] [place] [phone] Dougie Hess MD NO ADDRESS ON FILE SURGERY FOLLOWUP, UNSPEC (Primary Dx) Social History Tobacco Use Types Packs/Day Years Used Date Smoking Tobacco: Never Assessed Comments Unknown Sex and Gender Information Value Date Recorded Sex Assigned at Not on file 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
--- OUTSIDE RECORDS SUMMARY | 2025-04-06 09:17 | XMS_ITS | Encounter Summary ---
Author Organization [facility] Address [address] [place] [address] Care Team Providers Care Garment Parts Cutter Machine Name Role Phone Terry Gtz MD Primary Care Provider [phone] Encounter Details Date Type Department Care Team (Late st Contact Info) Description 06/25/2003 Outpatient Historical [facility] Reji Shubert [address] [place] [phone] Brie Watts MD NO ADDRESS ON FILE SCREENING MAMM-MAILG NEOPL-OTHER (Primary Dx) Social History Tobacco Use Types Packs/Day Years Used Date Smoking Tobacco: Never Assessed Comments Unknown Sex and Gender Information Value Date Recorded Sex Assigned at Not on file 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
--- OUTSIDE RECORDS SUMMARY | 2025-04-06 09:17 | XMS_ITS | Encounter Summary ---
Author Organization [facility] Address [address] [place] [address] Care Team Providers Care Baker Helper Name Role Phone Terry Gtz MD Primary Care Provider [phone] Encounter Details Date Type Department Care Team (Latest Contact Info) Description 01/05/2003 Outpatient Historical [facility] [place] [phone] Dougie Hess MD NO ADDRESS ON FILE PREOP CARDIOVASC EXAM (Primary Dx) Social History Tobacco Use Types Packs/Day Years Used Date Smoking Tobacco: Never Assessed Comments Unknown Sex and Gender Information Value Date Recorded Sex Assigned at Not on file Legal 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
--- OUTSIDE RECORDS SUMMARY | 2025-04-06 09:17 | XMS_ITS | Encounter Summary ---
Author Organization [facility] Address [address] [place] [address] Care Team Providers Care Stem Cutter Name Role Phone Terry Gtz MD Primary Care Provider [phone] Encounter Details Date Type Department Care Team (Latest Contact Info) Description 01/05/2003 Outpatient Historical [facility] OBGYN-Ludwig [place] [address] [place] [phone] Dougie Hess MD NO ADDRESS ON FILE PREOP EXAM OTHER SPECIFIED (Primary Dx); DYSPLASIA OF VAGINA Social History Tobacco Use Types Packs/Day Years Used Date Smoking Tobacco: Never Assessed Comments Unknown Sex and Gender Information Value Date Recorded Sex Assigned at Not on file Legal Sex Female 5:52 AM CARD SERVICES SPECIALIST Gender Identity Not on file Sexual Orientation Not on file documented as of this encounter Plan of Treatment Not on file documented as of this encounter Visit Diagnoses Diagnosis Other specified pre-operative examination- Primary Dysplasia of vagina documented in this encounter Care Teams Stem Cutter Relationship Specialty Start Date End Date Terry Gtz MD [address] [place] [address] [place] [phone] PCP - General Family Practice 01/12/20 documented as of this encounter
[2025-04-06 09:27] LABS: Hematocrit 32.2 % (36-47); Hemoglobin 9.30 g/dL (11.27-16.99); Mean Corpuscular HGB Conc 28.9 g/dL (30-55); Mean Corpuscular Hemoglobin 21.7 pg (27-33); Mean Corpuscular Volume 75.2 fl (85-98); Nucleated Red Blood Cells % 0 %; Platelet Count 202 10^3/cmm (157-399); Red Blood Count 4.28 10^6/uL (3.85-5.65); White Blood Count 5.47 10^3/uL (3.29-11.43)
[2025-04-06 09:45] VITALS: PULSE 46; RESP 18; O2SAT 100
[2025-04-06 09:45] LABS: Troponin(5th) Baseline 18 ng/L (0-10)
[2025-04-06 09:56] LABS: Alanine Aminotransferase 8 U/L (0-33); Albumin Level 4.4 g/dL (3.5-5.2); Alkaline Phosphatase 110 U/L (35-105); Anion Gap 17.1 (5-19); Aspartate Amino Transferase 13 U/L (0-32); Blood Urea Nitrogen 29 mg/dL (8-23); Calcium 9.3 mg/dL (8.5-10.5); Carbon Dioxide 25 mmol/L (22-29); Chloride 105 mmol/L (98-107); Creatinine Clr Calc Pharmacy 72.3272; Globulin 2.2 g/dL (1.3-4.6); Glucose 98 mg/dL (65-115); Osmolality Calculated 302 mOsm/kg (285-295); Potassium 4.1 mmol/L (3.5-5.1); Sodium 143 mmol/L (136-145); Thyroid Stimulating Hormone 46.68 uIU/mL (0.27-4.20); Total Protein 6.6 g/dL (6.6-8.7)
[2025-04-06 10:00] VITALS: PULSE 56; RESP 20; O2SAT 100
[2025-04-06 11:00] VITALS: PULSE 52; RESP 20; O2SAT 100
[2025-04-06 11:18] LABS: Glucose Urine UA Negative (Normal); Nitrate Urine Negative (Negative); Specific Gravity, Urine 1.005 (1.005-1.030)
[2025-04-06 11:20] LABS: Add Urine Microscopic? YES
--- NOTE | 2025-04-06 11:23 | ECG_ITS ---
[facility]25[facility]06 Pat Name: Lauren Boyd Department: Room: Gender: Female Milk Powder Grinder: : 1960 Requested By: Santos Mello Order Number: [id number] Stef MD: Marshall Perez M.D. Measurements Intervals [place] Rate: 51 P: 103 IL: 232 QRS: -11 QRSD: 132 T: 120 QT: 416 QTc: 385 Interpretive Statements Atrial fibrillation with a slow ventricular response INTRAVENTRICULAR CONDUCTION DELAY [130+ ms QRS DURATION] For R wave progression Compared to ECG 04/06/2025 10:00:00 Intraventricular conduction delay now present Atrial fibrillation no longer present Myocardial infarct finding still present Electronically Signed On 04-06-2025 18:04:13 CDT by Marshall Perez M.D. [email or web address]
[2025-04-06 11:32] LABS: Troponin 5 2HR 16.81 ng/L (0-10)
[2025-04-06 11:35] LABS: Troponin 5 2HR Delta -1.19 ABS# (0-10)
[2025-04-06 12:10] VITALS: BP 135/53; PULSE 47; RESP 17; O2SAT 17
== END 2025-04-06 12:10 | disposition home or self-care (01) ==
PROVIDERS: Emergency Provider Family Medicine; PCP Family Medicine
DX: R07.89 Other chest pain (principal); I10 Essential (primary) hypertension
CPT/HCPCS: 36415; 71045; 80053; 81001; 84443; 84484; 85025; 93005; 99285